=== PATIENT | female | born 1945 | race Caucasian/White ===

== ENCOUNTER 2017-05-11 15:32 | Inpatient (IN) | payer MEDICARE ==
[2017-05-11 16:43] LABS: #Basophils 0.1 thou/uL (0.0-0.2); #Eosinphils 0.2 thou/uL (0.0-0.7); #Monocytes 0.4 thou/uL (0.11-0.59); #Neutrophils 10.3 thou/uL (1.40-6.50); %Basophils 0.6 % (0.0-1.0); %Eosinophils 1.9 % (0.0-10.0); %Monocytes 3.6 % (0.0-10.0); Hematocrit 34.2 % (36.0-47.0); Mean Platelet Volume 8.4 fL (7.4-10.4); Red Blood Cell (RBC) Count 2.89 mill/uL (4.20-5.40); White Blood Cell (WBC) Count 11.9 thou/uL (4.8-10.8)
[2017-05-11 17:01] LABS: ALT (SGPT) 14 U/L (8-55); AST (SGOT) 24 U/L (5-34); Alkaline Phosphatase 146 U/L (40-150); Anion Gap 15 mmol/L (10-20); BUN (Urea Nitrogen) 24 mg/dL (9.8-20.1); Bilirubin, Total 0.6 mg/dL (0.2-1.2); Calc. Creatinine Clearance 0 mL/min (70-130); Calcium 8.6 mg/dL (7.8-10.44); Carbon Dioxide 26 mmol/L (23-31); Chloride 93 mmol/L (98-107); Estimated GFR-MDRD 8; Globulin 2.9 g/dL (2.4-3.5); Protein, Total 5.9 g/dL (6.0-8.3)
[2017-05-11 17:07] LABS: Anisocytosis SLIGHT = 6-15 cells (100X) (0-5/hpf); Macrocytosis MODERATE=16-30 cells (100X) (0-5/hpf); Ovalocytes SLIGHT = 2-5 cells (100X) (0-1/hpf); Polychromasia SLIGHT = 2-3 cells (100X) (0-2/hpf); Schistocytes SLIGHT = 2-5 cells (100X) (0-1/hpf); Tear Drops SLIGHT = 2-5 cells (100X) (0-1/hpf)
[2017-05-11] MEDS ORDERED: Pantoprazole 40 MG VIAL ONE (17:19)
--- NOTE | 2017-05-11 18:52 | CT ---
CT ABDOMEN AND PELVIS WITH IV CONTRAST: Indication: Abdominal pain with bloody diarrhea. Comparison: None. FINDINGS: There is a left lower quadrant peritoneal dialysis catheter. The catheter is coiled in the right aspe ct of the pelvis. There are multiple colonic diverticula involving the colon. There is no overt evidence of an acute di verticulitis. There is some mild pericolonic stranding seen adjacent to the mid aspect of the ascendi ng colon with a focal area of narrowing best seen on image 37 of series 2 and image 71 of series 6 wh ich may represent a focal area of peristalsis. With the presence of peritoneal dialysis, it is diffic ult to determine if this reticulation surrounding the colon is related to peritoneal dialysate versus pericolonic inflammatory stranding. There is severe atrophy of the right kidney. Unopacified left kidney demonstrates renal vascular calc ifications but no hydronephrosis. There are severe vascular calcifications involving the abdominal-pe lvic vasculature. There are layered stones within the gallbladder. Lung bases are clear. Unopacified liver, pancreas, adrenal glands, and spleen appear within normal limits. There are vascular calcifications involving the uterus. The bladder is decompressed. The rectum and p erirectal soft tissues appear within normal limits. There is dextroscoliosis of the lumbar spine. The re are scattered degenerative osteoarthritic change. There is diffuse osteopenia. IMPRESSION: 1. No definite explanation of the patient's abdominal pain and rectal bleeding. 2. There is a focal area of concentric narrowing involving the mid aspect of the ascending colon whic h is felt to be most likely related to a focal area of peristalsis. There is no overt evidence of col itis. There is extensive diverticulosis of the colon. 3. Cholelithiasis. 4. Severely atrophic right kidney. 5. Peritoneal dialysis catheter. 6. Severe arthrosclerotic disease of the abdominal vasculature. POS: [facility]
[2017-05-11] MEDS ORDERED: Sodium Chloride 0.9% 1,000 ML IV SCH ×2 (19:34→19:45)
[2017-05-11] MEDS ORDERED: Acetaminophen 325 MG TAB PO PRN (19:44)
[2017-05-11] MEDS: Ondansetron ODT 4 MG TAB PO PRN (20:17)
[2017-05-11] MEDS: Sodium Chloride 0.9% 1,000 ML IV SCH (21:27)
[2017-05-11] MEDS ORDERED: Potassium Chloride 40 MEQ in Sodium Chloride 0.9% 500 ML IVPB SCH (21:30)
[2017-05-11] MEDS: Mometasone/Formoterol 120 PUFF INHALER INH SCH (23:27)
[2017-05-12] MEDS: Levothyroxine Sodium 88 MCG TAB PO SCH (05:55)
--- NOTE | 2017-05-12 05:55 | PDOC.FM ---
- Subjective Subjective: Patient feeling much better this AM. She had one episode of diarrhea yesterday, which was non-bloody. She states that the diarrhea started before the bloody bowel BM. - Objective MAR Reviewed: Yes Vital Signs & Weight: Vital Signs (12 hours) Temp Pulse Resp BP Pulse Ox 05/12/17 00:00 98.7 F 81 20 113/56 L 98 05/11/17 23:29 97 05/11/17 23:27 97 05/11/17 20:00 99.0 F 84 20 98 05/11/17 19:35 99.0 F 84 20 117/57 L 98 Weight Weight 49.101 kg I&O: 05/10/17 05/11/17 05/12/17 06:59 06:59 06:59 Output Total 50 Balance -50 Result Diagrams: 05/12/17 05:52 05/12/17 05:52 EKG Reviewed by me: No Radiology Reviewed by me: Yes <Fouzia Tejeda - Last Filed: 05/12/17 08:20> - Objective Vital Signs & Weight: Vital Signs (12 hours) Temp Pulse Resp BP Pulse Ox 05/12/17 10:57 98.6 F 81 18 122/70 05/12/17 07:51 97.8 F 80 16 110/52 L 05/12/17 05:50 98.0 F 82 20 114/51 L 99 05/12/17 00:00 98.7 F 81 20 113/56 L 98 05/11/17 23:29 97 05/11/17 23:27 97 Weight Weight 108 lb 4 oz I&O: 05/11/17 05/12/17 05/13/17 06:59 06:59 06:59 Output Total 50 Balance -50 Result Diagrams: 05/12/17 05:52 05/12/17 05:52 <Baljit Velasquez - Last Filed: 05/12/17 11:15> Phys Exam - Physical Examination Constitutional: NAD HEENT: PERRLA, moist MMs, sclera anicteric Neck: supple Respiratory: no wheezing, no rales, no rhonchi, clear to auscultation bilateral 3/6 systolic murmur Gastrointestinal: soft, non-tender, no distention Hyperactive bowel sounds Musculoskeletal: no edema Neurological: non-focal Psychiatric: A&O x 3 Skin: normal turgor, cap refill <2 seconds <Omkar Tejedaistyn - Last Filed: 05/12/17 08:20> Dx/Plan (1) Intestinal infection due to bacteria causing bloody diarrhea Code(s): A04.9 - BACTERIAL INTESTINAL INFECTION, UNSPECIFIED Status: Acute (2) Hyponatremia Code(s): E87.1 - HYPO-OSMOLALITY AND HYPONATREMIA Status: Acute (3) ESRD on peritoneal dialysis Code(s): N18.6 - END STAGE RENAL DISEASE; Z99.2 - DEPENDENCE ON RENAL DIALYSIS Status: Chronic (4) CHF, chronic Code(s): I50.9 - HEART FAILURE, UNSPECIFIED Status: Chronic QualifierTitle: Congestive heart failure type: systolic Qualified Code(s) : I50.22 - Chronic systolic (congestive) heart failure (5) Aortic stenosis Code(s): I35.0 - NONRHEUMATIC AORTIC (VALVE) STENOSIS Status: Chronic QualifierTitle: Cardiac valve disease etiology: nonrheumatic Qualified Code(s): I35.0 - Nonrheumatic aortic (valve) stenosis (6) CAD (coronary artery disease) Code(s): I25.10 - ATHSCL HEART DISEASE OF [place] CORONARY ARTERY W/O ANG PCTRS Status: Chronic (7) Afib Code(s): I48.91 - UNSPECIFIED ATRIAL FIBRILLATION Status: Chronic (8) COPD (chronic obstructive pulmonary disease) Status: Chronic (9) Hypothyroid Code(s): E03.9 - HYPOTHYROIDISM, UNSPECIFIED Status: Chronic QualifierTitle: Hypothyroidism type: acquired Qualified Code(s): E03.9 - Hypothyroidism, unspecified (10) Macrocytic anemia Code(s): D53.9 - NUTRITIONAL ANEMIA, UNSPECIFIED Status: Chronic - Plan Plan: Plan: 1. Intestinal infection causing bloody diarrhea - Confirm via stool samples - Diverticulosis and possible peristalsis vs colitis noted on CT abdomen/pelvis - Cannot rule out diverticulosis as cause of bloody stools, although unlikely since diarrhea started prior to bleeding - Stool samples pending - Continue to monitor patient for signs of systemic infection - Monitor output - Hold lovenox and xarelto 2/2 GI bleeding 2. Mild hyponatremia - Monitor with AM BMP - May be 2/2 GI losses 3. ESRD on PD - Dr. Borjas consulted - Appreciate recs 4. Atrial fibrillation - Hold xarelto 2/2 GI bleeding - Consult Dr. Casey since holding xarelto 5. HTN - Continue dialysis - Restart any home medications 6. Macrocytic anemia - Chronic - Consider ordering folic acid and B12 7. Hypothyroid - Continue home meds 8. COPD - Continue home meds 9. Hypomagnesemia - Replace Mg Dispo: Anticipated disposition this evening or tomorrow pending GI recommendations <Fouzia Tejeda - Last Filed: 05/12/17 08:20> Attending Addendum - Attending Addendum I personally evaluated the patient and discussed the management with Dr. Tejeda I agree with the History, Examination, Assessment and Plan documented above with any addition or exceptions noted below. Patient has off and on cramping and diarrhea since . No recent antibiotics, but she did have C. Diff two years ago. She comes in with 2 days of camping and loose stools times 5 that turned bloody yesterday. C. Diff. is now positive. GI is going to see her. We can start metronidazole. She was on Eliquis for afib. I think bleeding risk exceeds stroke risk and would recommend stopping that for now. If she stops bleeding and GI is ok with plan may send her home to finish course of treatment. <Baljit Velasquez - Last Filed: 05/12/17 11:15>
--- NOTE | 2017-05-12 05:56 | HP-2 ---
DATE OF ADMISSION: 05/11/2017 PRIMARY CARE PHYSICIAN: Azar Sanders MD ATTENDING PHYSICIAN: Dr. Tree Grimes. RESIDENT: Bryce Wright M.D. CODE STATUS: FULL, patient has advanced directive detailing desires. CHIEF COMPLAINT: Bloody stool. HISTORY OF PRESENT ILLNESS: A 71-year-old female with past medical history of end-stage renal disease and congestive heart failure with EF of 45% with severe aortic stenosis and valvular lesions. She has had a 2-day history of diarrhea with tavon blood and dark fecal matter in the last day. She has had abdominal pain with these bowel movements. After the abdominal movement, the pain is completely relieved and slowly builds up again for next bowel movement. She has had a couple of episodes of nausea and vomiting. Vomiting has always been normal. Gastric contents, no blood, no dark matter or no coffee ground emesis. The pain is not relieved by anything, but bowel movements, but sometimes exacerbated by movement or walking around. The patient recently has had a workup for her acute aortic stenosis and she is pending valvular procedure. Patient has high risk for this valvular procedure so she is being evaluated by Dr. Casey for what would be best for her. In the ER, she was given a dose of Protonix which helped her pain. PAST MEDICAL HISTORY: 1. End-stage renal disease on nightly peritoneal dialysis with Dr. Keita. 2. CHF, EF 45%, most recently done in 08/23. 3. Paroxysmal atrial fibrillation. 4. Chronic obstructive pulmonary disease. 5. Hypothyroidism. 6. Psoriasis. 7. Hypertension. 8. Hyperlipidemia. 9. Aortic stenosis with planned TAVR. PAST SURGICAL HISTORY: 1. Thoracostomy. 2. AV tavo ablation. 3. Dual chamber pacemaker. 4. Pericardial window. 5. AVN ablation. MEDICATIONS: 1. Levothyroxine 88 mcg 1 time daily. 2. Xarelto 15 mg daily. 3. Symbicort 160 mcg inhaled 2 times daily. 4. Methotrexate 2.5 mg 1 time per week. 5. Calcitriol 0.5 mcg 1 time daily. 6. Potassium 20 mEq extended release 1 time daily. 7. Nephro-Gem tablets 1 time daily. 8. Epogen injections 7500 two times a week. 9. Renvela daily with meals. 10. Folic acid 1 mg 1 time a day. 11. Zofran p.r.n. for nausea. 12. Vitamins over the counter probiotic. FAMILY HISTORY: Noncontributory. SOCIAL HISTORY: Patient was a previous 1 pack per day smoker, but is not smoking currently. Alcohol none. Recreational drugs: None. REVIEW OF SYSTEMS: General: Negative for fever, chills, and weight loss. Positive for changes in appetite. Negative for respiratory symptoms. Negative for ear, nose and throat symptoms. Cardiovascular: Negative for chest pain and palpitations. Gastrointestinal: Positive for nausea, vomiting, diarrhea. Negative for constipation. Positive for abdominal pain. Positive for GI bleeding. Genitourinary: Negative for dysuria or polyuria. Skin: Negative rashes or lesions. Musculoskeletal: Negative for pain or tenderness. Neurologic: Negative for weakness or numbness. Psychiatric: Negative for anxiety, depression. PHYSICAL EXAMINATION: VITAL SIGNS: Blood pressure 117/75, pulse 81, respiratory rate 18, T-max 98.9, pulse ox 100% on room air, current weight 50.8 kilograms. GENERAL: Alert and oriented x3, no acute distress. Well-developed, appropriately interactive. EYES: PERRLA. EOMI. Conjunctivae within normal limits. ENT: Showed normal nasal mucosa. Normal oropharynx. NECK: Supple, without lymphadenopathy or thyromegaly. CARDIOVASCULAR: Regular rate and rhythm and systolic murmur was heard best over the left second intercostal space. Radial pulses 2+, pedal pulses 2+. RESPIRATORY: Normal effort without retractions. SKIN: Warm and dry without cyanosis or lesions. ABDOMEN: Soft, nontender to palpation. Bowel sounds x4 without mass or distention. In the ER, rectal exam was done that showed grossly bloody loose stool. EXTREMITIES: No clubbing, cyanosis or edema. MUSCULOSKELETAL: Structure and tone within normal limits. Muscle strength 5/ 5. Full range of motion. NEUROLOGICAL: No focal deficits. Sensation within normal limits. PSYCHIATRIC: The patient is appropriate. LABORATORY DATA: White blood cell count 11.9, hemoglobin 11.0, hematocrit 34.2 , platelets 151. Sodium 131, potassium 3.4, chloride 93, bicarbonate 26, BUN 24 , creatinine 5.19, glucose 96. Bilirubin 0.6, AST 24, ALT 14, alkaline phosphatase 146. IMAGING: Noncontrast CT stone protocol was done that showed chronic conditions including atrophic right kidney, atherosclerosis of abdominal vasculature. There is an area of concentric narrowing of the ascending colon, thought to be most likely a focal area peristalsis rather than an overt colitis. There is diverticulosis of the colon. ASSESSMENT AND PLAN: 1. Bloody diarrhea, suspect infectious cause. We will workup with stool lactoferrin, stool studies and Clostridium difficile cultures. We will give patient gentle fluids during this time. We will hold on antibiotics until stool cultures prove negative for EHEC. Alternatively bloody diarrhea could be from diverticulosis. The ER has consulted GI for consultation. 2. Peritoneal dialysis. Patient received peritoneal dialysis every night for chronic condition. We will consult Dr. Keita and continue this in hospital. 3. Atrial fibrillation. Patient is paced here in the hospital. EKG shows ventricular paced rhythm. The patient does chronically take Eliquis with her rectal bleeding. I think risks are higher than benefit at this moment. We will consult Dr. Casey in the morning for further recommendations on management of her chronic cardiac conditions. 4. Chronic obstructive pulmonary disease. Continue patient's inhalers. 5. Aortic stenosis. Despite noncardiac etiology at this point, we will involve Dr. Casey because of patient's history and current workup. 6. Psoriasis. The patient gives methotrexate weekly making her immunosuppressed. We will hold methotrexate if next dose is here in the hospital. 7. Macrocytic anemia, possibly secondary to the methotrexate. Patient's hemoglobin is currently stable. We will monitor. History and physical exam as well as management discussed with Dr. Tree Grimes. [facility]ITAL[facility]
[2017-05-12] MEDS: Ondansetron ODT 4 MG TAB PO PRN ×2 (06:05→15:06)
[2017-05-12 06:14] LABS: Anion Gap 13 mmol/L (10-20); BUN (Urea Nitrogen) 24 mg/dL (9.8-20.1); Calc. Creatinine Clearance 8 mL/min (70-130); Calcium 7.9 mg/dL (7.8-10.44); Carbon Dioxide 27 mmol/L (23-31); Chloride 101 mmol/L (98-107); Estimated GFR-MDRD 9; Magnesium 1.5 mg/dL (1.6-2.6)
--- NOTE | 2017-05-12 06:24 | CON ---
DATE OF CONSULTATION: 05/11/2017 CONSULTING PHYSICIAN: Dr. Wright REASON FOR CONSULTATION: End-stage renal disease evaluation and care. REASON FOR ADMISSION: Hematochezia. HISTORY OF PRESENT ILLNESS: A 71-year-old female with a history of end-stage renal disease on perito betito dialysis at home, hypertension, psoriasis, atrial fibrillation, COPD, aortic stenosis, pericardi al effusion, came to the hospital for hematochezia. The patient is having diarrhea for the last few days and started having blood in the stools noticed on wiping and came to the hospital. She is very weak. She has not been eating very well for the last few days because of diarrhea and abdominal pain . She also complains of abdominal pain. No fevers, chills, no nausea, vomiting, no chest pain or pa lpitation reported. She has been doing peritoneal dialysis at home. PAST MEDICAL HISTORY: Positive for end-stage renal disease, psoriasis, hypothyroidism, hypertension, COPD, aortic stenosis, pericardial effusion, atrial fibrillation. PAST SURGICAL HISTORY: Bilateral cataract surgery, PD catheter placement, pericardial window, tubal ligation, pleurocentesis, AFib ablation. HOME MEDICATIONS: Levothyroxine, Xarelto, Symbicort, methotrexate, calcitriol, potassium chloride, E pogen, Renvela, folic acid, torsemide. ALLERGIES: ADHESIVE and CIPRO. SOCIAL HISTORY: No smoking, alcohol, or illicit drug abuse. FAMILY HISTORY: No history of kidney disease. REVIEW OF SYSTEMS: The following complete review of systems was negative, unless otherwise mentioned in the HPI or below: Constitutional: Weight loss or gain, ability to conduct usual activities. Sk in: Rash, itching. Eyes: Double vision, pain. ENT/Mouth: Nose bleeding, neck stiffness, pain, te nderness. Cardiovascular: Palpitations, dyspnea on exertion, orthopnea. Respiratory: Shortness of breath, wheezing, cough, hemoptysis, fever or night sweats. Gastrointestinal: Poor appetite, abdom inal pain, heartburn, nausea, vomiting, constipation, or diarrhea. Genitourinary: Urgency, frequenc y, dysuria, nocturia. Musculoskeletal: Pain, swelling. Neurologic/Psychiatric: Anxiety, depressio n. Allergy/Immunologic: Skin rash, bleeding tendency. PHYSICAL EXAMINATION: GENERAL: This is a well-built female, in no apparent distress. VITAL SIGNS: Temperature 97.9, pulse 84, respiratory rate 18, blood pressure 139/74. HEENT: Atraumatic, normocephalic. Oral mucosa is moist. NECK: Supple. CARDIOVASCULAR: S1, S2 heard. Rate and rhythm regular. RESPIRATORY: Clear. GASTROINTESTINAL: Abdomen is soft. MUSCULOSKELETAL: No tenderness. No edema. DERMATOLOGIC: No skin rash. NEUROLOGIC: Alert, awake. PSYCHIATRIC: Mood and affect normal. LABORATORY DATA: Hemoglobin is 11.0, potassium 3.4, BUN 24, creatinine is 5.9, albumin is 3.7. ASSESSMENT AND PLAN: 1. End-stage renal disease on peritoneal dialysis. We will give a short run of dialysis today. She is on intravenous fluids currently, cautious intravenous fluids as tolerated and monitor respiratory status closely. 2. Hyponatremia, limit fluid intake. 3. Hypokalemia. We will give 40 of potassium. She is on potassium supplements . 4. Hypoalbuminemia with moderate protein-energy malnutrition. 5. Anemia, chronic with gastrointestinal bleed. She is on Epogen at home. She had a dose of Epoge n at home today. 6. Edema, controlled. 7. Hypertension, stable. Blood pressure is slightly on the lower side. 8. Gastrointestinal bleed. Hemoglobin is stable. Monitor hemoglobin closely, possible gastrointest inal evaluation. CT scan was unremarkable at this point. Thank you for the consult. Plan is to continue peritoneal dialysis as tolerated. The patient is agr eeable, plan discussed with her, will follow.
[2017-05-12 06:34] LABS: #Basophils 0.1 thou/uL (0.0-0.2); #Eosinphils 0.4 thou/uL (0.0-0.7); #Lymphocytes 1.5 thou/uL (1.20-3.40); #Monocytes 0.4 thou/uL (0.11-0.59); #Neutrophils 7.5 thou/uL (1.40-6.50); %Basophils 0.6 % (0.0-1.0); %Eosinophils 3.8 % (0.0-10.0); %Lymphocytes 14.8 % (21.0-51.0); %Monocytes 4.2 % (0.0-10.0); Hematocrit 29.9 % (36.0-47.0); Macrocytosis MODERATE=16-30 cells (100X) (0-5/hpf); Mean Platelet Volume 8.1 fL (7.4-10.4); Ovalocytes SLIGHT = 2-5 cells (100X) (0-1/hpf); Red Blood Cell (RBC) Count 2.53 mill/uL (4.20-5.40); Tear Drops SLIGHT = 2-5 cells (100X) (0-1/hpf); White Blood Cell (WBC) Count 9.8 thou/uL (4.8-10.8)
[2017-05-12] MEDS: Mometasone/Formoterol 120 PUFF INHALER INH SCH ×2 (06:36→19:13)
[2017-05-12] MEDS: Calcitriol 0.25 MCG CAP PO SCH (08:37)
[2017-05-12] MEDS: Folic Acid 1 MG TAB PO SCH (08:38)
[2017-05-12] MEDS: Sevelamer Carbonate 800 MG TAB PO SCH ×3 (08:38→17:31)
[2017-05-12] MEDS: Potassium Chloride 20 MEQ TAB PO SCH (08:44)
[2017-05-12] MEDS ORDERED: metroNIDAZOLE 500 MG TAB PO SCH ×2 (11:15→15:00)
--- NOTE | 2017-05-12 11:30 | PRG ---
DATE OF SERVICE: 05/12/2017 SUBJECTIVE: This is a 71-year-old female being seen for end-stage renal disease. Patient denies any nausea, vomiting or chest pain. PHYSICAL EXAMINATION: GENERAL: Patient is awake, alert. VITAL SIGNS: Afebrile, pulse 81, breathing 16, blood pressure 122/70. OBJECTIVE: See above. Awake, alert, in no acute distress. GENERAL APPEARANCE AND MENTAL STATUS: Fair. HEAD/NECK: Normocephalic. Atraumatic. EYES: EOMI. No deformity. EARS: Clear. No ulcers. NOSE: Intact. No lesions. MOUTH: Clear. No discharge. THROAT: Clear. No exudate. LUNGS: Clear. No crackles. CARDIAC: S1, S2. No rub. ABDOMEN: Benign. BS+. GENITALIA/RECTUM: Stein absent. BACK/EXTREMITIES: Edema 0+ Ulcer- NEUROLOGICAL: Alert and motor intact. SKIN: Rash- Bruise- LYMPHATICS: Edema- Ulcer- LABORATORY: Hemoglobin 9.7, potassium 4.2. ASSESSMENT AND RECOMMENDATIONS: 1. Stage 6 chronic kidney disease. Continue peritoneal dialysis. 2. Hypertension, stable. 3. Anemia, stable. 4. Medications based on glomerular filtration rate are appropriate.
[2017-05-12] MEDS: Sodium Chloride 0.9% 1,000 ML IV SCH (11:52)
[2017-05-12 14:17] VITALS: BMI 23.3
[2017-05-12 17:13] LABS: Hematocrit 28.7 % (36.0-47.0)
[2017-05-12] MEDS: Vancomycin HCl 25 MG/ML Oral PO SCH ×2 (17:31→21:02)
--- NOTE | 2017-05-12 22:21 | CON ---
CARDIOLOGY CONSULTATION DATE OF CONSULTATION: 05/12/2017 PRIMARY BOILER WASHER: Tanvir Casey M.D. REASON FOR CONSULTATION: GI bleed, severe aortic stenosis, and chronic atrial fibrillation. HISTORY OF PRESENT ILLNESS: Ms. Hayes is a very pleasant 71-year-old white female well known to myself, who comes into the hospital for diarrhea and blood in her stool. She has been diagnosed with diverticulosis and possibly the source of bleeding is most likely related to Clostridium difficile colitis. She has been started on antibiotics for this and her Xarelto was discontinued. She is on chronic anticoagulation for atrial fibrillation. She has a history of severe aortic stenosis. She has been turned down once for TAVR and is undergoing evaluation by a second TAVR programmed to see if she would be a candidate for. She is scheduled to see them on the of this month. If she gets turned down at that point, she will be a candidate for an open procedure. She has a history of end stage renal disease and has chronic anemia from chronic disease. I am sure her heart function is mildly reduced with an EF of about 45% and has paroxysmal atrial fibrillation. She has no other issues. She has no other complaints at this time. She has not had loose bowel movements since yesterday evening, but she has an abnormal bowel movements since. PAST MEDICAL HISTORY: 1. End-stage renal disease on peritoneal dialysis with Dr. Keita. 2. 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 3. Paroxysmal atrial fibrillation. 4. Chronic obstructive pulmonary disease. 5. Hypothyroidism. 6. Psoriasis. 7. Hypertension. 8. Hyperlipidemia. 9. Severe aortic stenosis, heavily calcified valve to undergo TAVR evaluation. PAST SURGICAL HISTORY: 1. Thoracotomy for empyema. 2. AV tavo ablation with pacemaker placed. 3. Pericardial window for pericardial effusion. 4. Peritoneal dialysis catheter placement. OUTPATIENT MEDICATIONS: Include: 1. Levothyroxine 88 mcg a day. 2. Xarelto 15 mg a day. 3. Symbicort. 4. Methotrexate 2.5 mg weekly. 5. Calcitriol. 6. Potassium 20 mEq a day. 7. Nephro-Gem. 8. Epogen. 9. Renvela. 10. Folic acid. 11. Zofran. 12. Vitamins. FAMILY HISTORY: Noncontributory. SOCIAL HISTORY: No alcohol, tobacco or drugs. Former smoker. REVIEW OF SYSTEMS: A 12-point review of systems was done and is all negative unless stated in the history of present illness. PHYSICAL EXAMINATION: VITAL SIGNS: Temperature 98.6, pulse 81, respiration rate 18, satting 99% on 1 liter, blood pressure 122/70. GENERAL: Awake, alert and oriented x3, in no distress. She looks pale, 2+. HEENT: Normocephalic, atraumatic. NECK: Supple. LUNGS: Have reduced breath sounds bilaterally. CARDIOVASCULAR: S1, S2. There is a late peaking systolic ejection murmur at right upper sternal border, radiated to the rest of the precordium, no S3 or S4 , no rubs. ABDOMEN: Soft, positive bowel sounds. EXTREMITIES: No edema. SKIN: Warm and dry. LABORATORY WORK: Reviewed. White count of 11 on arrival, down to 9.8, hemoglobin was 11 on arrival, down to 9.3, platelet count of 151. Chemistry with a sodium of 131, potassium 3.4 up to 4.2, creatinine high as expected, albumin of 3.0. Stool for C. difficile was positive. ASSESSMENT: 1. Acute blood loss anemia. 2. Lower gastrointestinal bleed. 3. Severe aortic stenosis. 4. Coronary artery disease, stable. 5. Clostridium difficile colitis. PLAN: 1. Part of the differential diagnosis of a GI bleed in a patient with severe aortic stenosis should include AVMs in her small bowel. We would favor doing both an upper and lower endoscopy if it hs not been done recently but also pill endoscopy if indicated. This will be up to the gastrologist discretion. 2. We would definitely hold Xarelto and any antiplatelet for now until the bleeding has stopped and she is ruled out from the GI point of review. 3. For her severe aortic stenosis, she is undergoing evaluation for TAVR down in [place]. She will probably have to reschedule the appointment, she has got on the . Thank you for letting us to participate in the care of your patient. We will follow. JALEN
[2017-05-13] MEDS: Vancomycin HCl 25 MG/ML Oral PO SCH ×4 (01:18→14:25)
[2017-05-13 06:09] LABS: #Basophils 0.1 thou/uL (0.0-0.2); #Eosinphils 0.2 thou/uL (0.0-0.7); #Monocytes 0.6 thou/uL (0.11-0.59); #Neutrophils 11.6 thou/uL (1.40-6.50); %Basophils 0.4 % (0.0-1.0); %Eosinophils 1.6 % (0.0-10.0); %Lymphocytes 7.1 % (21.0-51.0); %Monocytes 4.7 % (0.0-10.0); Hematocrit 28.6 % (36.0-47.0); Mean Platelet Volume 7.8 fL (7.4-10.4); White Blood Cell (WBC) Count 13.4 thou/uL (4.8-10.8)
[2017-05-13] MEDS: Levothyroxine Sodium 88 MCG TAB PO SCH (06:13)
--- NOTE | 2017-05-13 06:18 | PDOC.FM ---
Addendum entered and electronically signed by Parker Dominguez DO 05/13/17 08: 22: Upper Level Note: S: Patient doing well. No further diarrhea or GI bleeding since admission. Patient is agreeable to discharge. Objective: A&Ox3. NAD. Breathing unlabored. No wheezing rales, or rhonchi. Heart rate and rhythm regular. Abdomen soft, nontender, normal bowel sounds A/P: 1) Acute lower GI bleed - 2/2 C. diff. Patient now on oral vancomycin. Dr. Yun with GI plans outpatient follow up for colonoscopy to evaluate possibility of AVMs 2) C. diff colitis - Continue oral vancomycin I agree wtih Dr. Tejeda's assessment and plan as listed below. Plan for discharge today Original Note: - Subjective Subjective: Patient feels well this morning. She was able to tolerate PO yesterday, although she doesn't have much of an appetite. Her daughter is bringing her some chicken noodle soup sometime this morning. She denies any chest pain or increase in shortness of breath. Patient denies nausea or vomiting. She has not had any diarrhea since night of admission, and she denies any more bloody BM's since night of admission. - Objective MAR Reviewed: Yes Vital Signs & Weight: Vital Signs (12 hours) Temp Pulse Resp BP Pulse Ox 05/13/17 05:31 96 05/12/17 20:00 98.7 F 82 16 132/60 99 05/12/17 19:50 98.7 F 82 16 05/12/17 19:13 16 96 Weight Admit Weight 48.988 kg Weight 48.988 kg I&O: 05/11/17 05/12/17 05/13/17 06:59 06:59 06:59 Intake Total 1050 Output Total 50 Balance -50 1050 Result Diagrams: 05/13/17 05:54 05/13/17 05:54 EKG Reviewed by me: No Radiology Reviewed by me: No <Fouzia Tejeda - Last Filed: 05/13/17 07:57> - Objective Vital Signs & Weight: Vital Signs (12 hours) Temp Pulse Resp BP Pulse Ox 05/13/17 08:00 99.0 F 70 16 99 05/13/17 07:59 78 16 96 05/13/17 07:25 99 F 70 20 131/59 L 99 12/05/17 05:31 96 Weight Admit Weight 108 lb Weight 108 lb I&O: 05/12/17 05/13/17 05/14/17 06:59 06:59 06:59 Intake Total 1050 Output Total 50 Balance -50 1050 Result Diagrams: 05/13/17 05:54 05/13/17 05:54 <Baljit Velasquez - Last Filed: 05/13/17 11:01> Phys Exam - Physical Examination Constitutional: NAD HEENT: moist MMs, sclera anicteric Neck: supple Respiratory: no wheezing, no rales, no rhonchi Cardiovascular: RRR systolic murmur Gastrointestinal: soft, non-tender, no distention, positive bowel sounds Musculoskeletal: no edema, pulses present Neurological: non-focal, moves all 4 limbs Psychiatric: A&O x 3 Skin: cap refill <2 seconds Deviation from normal: Skin tear on right elbow <Fouzia Tejeda - Last Filed: 05/13/17 07:57> Dx/Plan (1) Intestinal infection due to bacteria causing bloody diarrhea Code(s): A04.9 - BACTERIAL INTESTINAL INFECTION, UNSPECIFIED Status: Acute (2) Hyponatremia Code(s): E87.1 - HYPO-OSMOLALITY AND HYPONATREMIA Status: Acute (3) ESRD on peritoneal dialysis Code(s): N18.6 - END STAGE RENAL DISEASE; Z99.2 - DEPENDENCE ON RENAL DIALYSIS Status: Chronic (4) CHF, chronic Code(s): I50.9 - HEART FAILURE, UNSPECIFIED Status: Chronic QualifierTitle: Congestive heart failure type: systolic Qualified Code(s) : I50.22 - Chronic systolic (congestive) heart failure (5) Aortic stenosis Code(s): I35.0 - NONRHEUMATIC AORTIC (VALVE) STENOSIS Status: Chronic QualifierTitle: Cardiac valve disease etiology: nonrheumatic Qualified Code(s): I35.0 - Nonrheumatic aortic (valve) stenosis (6) CAD (coronary artery disease) Code(s): I25.10 - ATHSCL HEART DISEASE OF [place] CORONARY ARTERY W/O ANG PCTRS Status: Chronic (7) Afib Code(s): I48.91 - UNSPECIFIED ATRIAL FIBRILLATION Status: Chronic (8) COPD (chronic obstructive pulmonary disease) Status: Chronic (9) Hypothyroid Code(s): E03.9 - HYPOTHYROIDISM, UNSPECIFIED Status: Chronic QualifierTitle: Hypothyroidism type: acquired Qualified Code(s): E03.9 - Hypothyroidism, unspecified (10) Macrocytic anemia Code(s): D53.9 - NUTRITIONAL ANEMIA, UNSPECIFIED Status: Chronic - Plan Plan: Plan: 1. Intestinal infection causing bloody diarrhea - Stool positive for C. difficile - History of C. Difficile treated 2 years ago - Spoke with GI and they recommend treatment with oral vancomycin. In addition, they would like to do colonoscopy as outpatient in 2-3 weeks. - Cannot rule out AVM's as cause of bleeding as patient has severe aortic stenosis - Continue to monitor patient for signs of systemic infection - Monitor output - Hold lovenox and xarelto 2/2 GI bleeding - Patient started on oral vancomycin 2. Acute blood loss anemia - 2/2 to GI bleed from pseudomembranous colitis vs. AVM's - Stable 2. Mild hyponatremia - Improved this AM - May be 2/2 GI losses 3. ESRD on PD - Dr. Borjas consulted - Appreciate recs 4. Atrial fibrillation - Hold xarelto 2/2 GI bleeding - Appreciate recs from Cards 5. HTN - Continue dialysis - Restart any home medications 6. Macrocytic anemia - Chronic 7. Hypothyroid - Continue home meds 8. COPD - Continue home meds 9. Hypomagnesemia - Replace Mg Dispo: Anticipated discharge today. <Fouzia Tejeda - Last Filed: 05/13/17 07:57> Attending Addendum - Attending Addendum I personally evaluated the patient and discussed the management with Dr. Dominguez and Nikhil I agree with the History, Examination, Assessment and Plan documented above. <Baljit Velasquez - Last Filed: 05/13/17 11:01>
[2017-05-13 06:19] LABS: Anion Gap 13 mmol/L (10-20); BUN (Urea Nitrogen) 25 mg/dL (9.8-20.1); Calc. Creatinine Clearance 8 mL/min (70-130); Carbon Dioxide 24 mmol/L (23-31); Chloride 102 mmol/L (98-107); Estimated GFR-MDRD 9
[2017-05-13] MEDS: Mometasone/Formoterol 120 PUFF INHALER INH SCH (07:59)
[2017-05-13 08:33] VITALS: BP 131/59
[2017-05-13] MEDS: Sevelamer Carbonate 800 MG TAB PO SCH ×2 (08:52→12:11)
[2017-05-13] MEDS: Folic Acid 1 MG TAB PO SCH (08:52)
[2017-05-13] MEDS: Calcitriol 0.25 MCG CAP PO SCH (08:53)
[2017-05-13] MEDS: Potassium Chloride 20 MEQ TAB PO SCH (08:54)
[2017-05-13 09:20] VITALS: TEMP 99
--- NOTE | 2017-05-13 14:31 | DIS-2 ---
DATE OF ADMISSION: 05/11/2017 DATE OF DISCHARGE: 05/13/2017 RESIDENT: Dr. Fouzia Tejeda ADMITTING ATTENDING: Dr. Tree Grimes DISCHARGE ATTENDING: Dr. Baljit Velasquez CONSULTATIONS: 1. Cardiology, Dr. Tanvir Casey. 2. Gastroenterology, Dr. Mack Yun. PROCEDURES: Abdomen and pelvis CT, no definite explanation of the patient's abdominal pain and rectal bleeding. There was a focal area of concentric narrowing involving the mid aspect of the ascending colon which was felt to be likely related to focal area of peristalsis. Extensive diverticulosis of the colon was noted. The patient was also found to have cholelithiasis, a severely atrophic right kidney, a peritoneal dialysis catheter, and severe atherosclerotic disease of the abdominal vasculature. PRIMARY DIAGNOSES: 1. Clostridium difficile pseudomembranous colitis. 2. Acute blood loss anemia secondary to Clostridium difficile colitis. SECONDARY DIAGNOSES: 1. Mild hyponatremia, resolved. 2. End-stage renal disease on peritoneal dialysis. 3. Atrial fibrillation on anticoagulation. 4. Hypertension. 5. Macrocytic anemia, chronic. 6. Hypothyroidism. 7. Chronic obstructive pulmonary disease. 8. Hypomagnesemia, resolved. DISCHARGE MEDICATIONS: 1. Liquid vancomycin 125 mg oral q.6h. for a total of 14 days. 2. Lactobacillus acidophilus 1 capsule oral daily. 3. Calcitriol 0.5 mcg oral daily. 4. Levothyroxine 88 mcg oral every morning. 5. Procrit 7500 intramuscular as directed. 6. Methotrexate 1 tablet oral every week. 7. Budesonide. 8. Symbicort 160/4.5 two inhalations oral twice daily. 9. Folic acid 1 mg oral daily. 10. Potassium chloride 20 mEq oral every morning with breakfast. 11. Sevelamer carbonate 800 mg oral 3 times daily with meals. 12. Ferrous sulfate 325 mg oral daily. DISCONTINUED MEDICATIONS: Rivaroxaban 50 mg oral daily. This was discontinued secondary to gastrointestinal bleeding. HISTORY OF PRESENT ILLNESS AND HOSPITAL COURSE: This is a 71-year-old female with past medical history of end-stage renal disease on peritoneal dialysis, congestive heart failure with ejection fraction of 45% with severe aortic stenosis and valvular lesions, and atrial fibrillation on anticoagulation therapy. She had a 2-day history of diarrhea with tavon blood and dark fecal matter on the day prior to admission. The patient did report abdominal pain with bowel movements. She states that after the bowel movement, the pain completely resolved and then would slowly build up again until the next bowel movement. The patient did report some nausea and dry heaving. This all started on . She has just not felt well since then. Emesis was nonbloody, nonbilious. The patient reports that she has not taken any antibiotics recently and there are no sick contacts at home. The patient was recently worked up for her aortic stenosis and she is pending valvular procedure in [place]. The patient is high risk secondary to her numerous medical conditions and she has been evaluated by Dr. Casey. The patient remained stable throughout the course of her hospital stay. She had 1 episode of bloody diarrhea on the night of admission; however, that resolved and she has not had any diarrhea or bloody bowel movement since that time. The patient reports that she has been feeling well since she stopped having the diarrhea. She was able to advance her diet to a regular diet, although she is still being cautious of what she eats secondary to some nausea. She denies any fatigue or dizziness upon standing. Her hemoglobin did drop from 11.0 to 9.7 from the day of admission to the next day; however, upon recheck her hemoglobin and hematocrit remained stable. Cardiology was consulted. Dr. Casey recommended the patient be worked up for potential AVMs associated with her severe aortic stenosis. Dr. Yun from Gastroenterology was also consulted. Stool cultures were positive for C. difficile and thus the bleeding was presumed to be from Clostridium difficile colitis. Dr. Yun recommended treatment with oral vancomycin as it is the patient's second time having C. difficile colitis. Dr. Yun would like to follow up with patient within 2-3 weeks of discharge from hospital for a possible colonoscopy to evaluate any further causes of bleeding. It was recommended that the patient stop her anticoagulant until the bleeding has resolved. Since patient will be going for a colonoscopy within the next 2-3 weeks, it was decided that anticoagulant be stopped until that time unless the patient's primary care physician requests otherwise. The patient did receive her peritoneal dialysis while being hospitalized, although it was not for the length of time which she normally has her peritoneal dialysis. She did not get fluid overloaded during her hospital stay. She denied any shortness of breath or extremity swelling. She remained in a sinus rhythm. All home medications were continued aside from the anticoagulant. The patient was instructed to call Dr. Yun from GI prior to discharge from hospital to schedule an appointment. Dr. Yun did not see patient while she was in the hospital, although he did give his recommendations regarding management and would like to personally follow up with the patient on an outpatient basis. This was discussed in length with the patient. Additionally, the cost of oral vancomycin was discussed with the patient. It is possible that the oral vancomycin may be expensive. However, the patient was understanding of this and was willing to pay for the oral vancomycin since it was recommended over the Flagyl per GI. It was discussed that if for some reason she was not able to afford to the oral vancomycin that she contact [facility] immediately, so that Flagyl could be prescribed promptly. It is important that patient does not miss any doses of her medication to prevent failed treatment of C. difficile colitis. DISPOSITION: Stable. DISCHARGE INSTRUCTIONS: 1. Location: Home. 2. Diet: Renal, low sodium diet. 3. Activity: As tolerated. 4. Followup: The patient is to follow up with Dr. Sanders at [facility] within the next 3-4 days to ensure resolution of symptoms and to ensure management be followed up on appropriately. Additionally, the patient is to follow with Dr. Yun for outpatient colonoscopy in 2-3 weeks to evaluate for other causes of GI bleeding to include AVMs. JALEN
--- NOTE | 2017-05-13 14:49 | PRG ---
DATE OF SERVICE: 05/13/2017 SUBJECTIVE: This is a 71-year-old female being seen for end-stage renal disease. The patient denies any nausea, vomiting or chest pain. OBJECTIVE: GENERAL: The patient is awake and alert. VITAL SIGNS: Afebrile, pulse 70, breathing at 16 and blood pressure 131/59. HEAD/NECK: Normocephalic. Atraumatic. EYES: EOMI. No deformity. EARS: Clear. No ulcers. NOSE: Intact. No lesions. MOUTH: Clear. No discharge. THROAT: Clear. No exudate. LUNGS: Clear. No crackles. CARDIAC: S1, S2. No rub. ABDOMEN: Benign. BS+. GENITALIA/RECTUM: Stein absent. BACK/EXTREMITIES: Edema 0+. Ulcer-. NEUROLOGICAL: Alert and motor intact. SKIN: Rash- Bruise-. LYMPHATICS: Edema-. Ulcer-. LABORATORY DATA: Hemoglobin 9.3. Potassium 3.9. ASSESSMENT AND RECOMMENDATIONS: 1. Stage 6 chronic kidney disease. Continue peritoneal dialysis. 2. Hypertension, stable. 3. Anemia, stable. 4. Medications based on glomerular filtration rate are appropriate.
--- NOTE | 2017-05-13 19:01 | PDOC.CTH ---
Cardiology Progress Note - Subjective She had a normal BM today. No bleeding. - Objective Vital Signs Temp Pulse Resp BP Pulse Ox 05/13/17 08:00 99.0 F 70 16 99 05/13/17 07:59 78 16 96 05/13/17 07:25 99 F 70 20 131/59 L 99 Admit Weight 108 lb Weight 108 lb 05/12/17 05/13/17 05/14/17 06:59 06:59 06:59 Intake Total 1050 Output Total 50 Balance -50 1050 - Physical Examination General/Neuro: alert & oriented x3, NAD Neck: no JVD present Lungs: unlabored respirations Heart: RRR Abdomen: NT/ND Extremities: other: (no edema.) - Labs Result Diagrams: 05/13/17 05:54 05/13/17 05:54 - Assessment/Plan 1. Acute blood loss anemia 2. C Diff colitis 3. Paroxysmal afib on chronic anticoagulation. 4. Severe 5. ESRD on PD. 6. COPD PLAN: - She will be discharged home today from the infection standpoint. - She will resume follow up with [facility] for TAVR evaluation. - Will plan on restarting Xarelto when deemed safe by GI after her scopes.
--- NOTE | 2017-05-17 13:37 | EKG ---
Test Reason : Blood Pressure : / mmHG Vent. Rate : 082 BPM Atrial Rate : 088 BPM P-R Int : 000 ms QRS Dur : 188 ms QT Int : 476 ms P-R-T Axes : 000 -72 097 degrees QTc Int : 556 ms Ventricular-paced rhythm Abnormal ECG Confirmed by JOANN GARCIA, MORIAH Zelaya ([id number]), editor managing newspaper CHAVA YADAV ([id number]) on 05/17/2017 1:36:33 PM Referred By: Confirmed By:MORIAH DAVID MD
[2017-05-18] MEDS ORDERED: Methotrexate Sodium 2.5 MG TAB PO SCH (09:00)
== END 2017-05-13 15:28 | disposition home or self-care (01) | DRG 371 ==
LOC: ERS 15:32 → ONC 17:33
PROVIDERS: ADMIT Family Medicine; ATTEND Family Medicine
PROC: 3E1M39Z Irrigation of Peritoneal Cavity using Dialysate, Percutaneous Approach (ICD-10-PCS; principal; 2017-05-11)
DX: A04.72 Enterocolitis due to Clostridium difficile, not specified as recurrent (principal); N18.6 End stage renal disease; I13.2 Hypertensive heart and chronic kidney disease with heart failure and with stage 5 chronic kidney disease, or end stage renal disease; Q60.3 Renal hypoplasia, unilateral; D62 Acute posthemorrhagic anemia; E87.1 Hypo-osmolality and hyponatremia; I50.22 Chronic systolic (congestive) heart failure; I48.0 Paroxysmal atrial fibrillation; J44.9 Chronic obstructive pulmonary disease, unspecified; Z79.01 Long term (current) use of anticoagulants; I35.0 Nonrheumatic aortic (valve) stenosis; Z99.2 Dependence on renal dialysis; L40.9 Psoriasis, unspecified; D53.9 Nutritional anemia, unspecified; E83.42 Hypomagnesemia
CPT/HCPCS: 36415; 36416; 74176; 80048; 80053; 83630; 83735; 85025; 86850; 86900; 86901; 87015; 87045; 87046; 87081; 87324; 87449; 87493; 87899; 90945; 93005; 94664; 96374; A4216; C9113; G0257; J3480; J7050; Q0162

== ENCOUNTER 2017-06-04 17:03 | Emergency (ER) | payer MEDICARE ==
[2017-06-04] MEDS ORDERED: Dicyclomine 20 MG TAB ONE (18:10)
[2017-06-04] MEDS ORDERED: Vancomycin HCl 25 MG/ML Oral PO SCH (18:15)
[2017-06-04 19:38] LABS: #Eosinphils 0.2 thou/uL (0.0-0.7); #Lymphocytes 1.3 thou/uL (1.20-3.40); #Monocytes 0.1 thou/uL (0.11-0.59); #Neutrophils 6.8 thou/uL (1.40-6.50); %Basophils 0.3 % (0.0-1.0); %Eosinophils 1.8 % (0.0-10.0); %Lymphocytes 15.3 % (21.0-51.0); %Monocytes 1.6 % (0.0-10.0); Hematocrit 31.3 % (36.0-47.0); Mean Platelet Volume 8.6 fL (7.4-10.4); Red Blood Cell (RBC) Count 2.62 mill/uL (4.20-5.40); White Blood Cell (WBC) Count 8.5 thou/uL (4.8-10.8)
[2017-06-04 20:02] LABS: Anion Gap 20 mmol/L (10-20); BUN (Urea Nitrogen) 22 mg/dL (9.8-20.1); Calc. Creatinine Clearance 0 mL/min (70-130); Carbon Dioxide 24 mmol/L (23-31); Chloride 99 mmol/L (98-107); Estimated GFR-MDRD 8; Magnesium 1.8 mg/dL (1.6-2.6)
== END 2017-06-04 23:14 | disposition home or self-care (01) ==
LOC: ERS 17:03
DX: A04.72 Enterocolitis due to Clostridium difficile, not specified as recurrent (principal); E03.9 Hypothyroidism, unspecified; I10 Essential (primary) hypertension; I48.91 Unspecified atrial fibrillation; J44.9 Chronic obstructive pulmonary disease, unspecified; Z87.891 Personal history of nicotine dependence
CPT/HCPCS: 36415; 80048; 83735; 85025; 96360; 96361; 96372

== ENCOUNTER 2017-06-08 15:19 | Inpatient (IN) | payer MEDICARE ==
[2017-06-08] MEDS ORDERED: Ondansetron HCl/PF 4 MG/2 ML Vial ONE ×2 (16:08→17:57)
[2017-06-08] MEDS ORDERED: Morphine 4 MG/ML VIAL ONE (17:57)
[2017-06-08 18:29] LABS: #Eosinphils 0.1 thou/uL (0.0-0.7); #Lymphocytes 0.8 thou/uL (1.20-3.40); #Monocytes 0.5 thou/uL (0.11-0.59); #Neutrophils 11.1 thou/uL (1.40-6.50); %Basophils 0.1 % (0.0-1.0); %Eosinophils 0.5 % (0.0-10.0); %Lymphocytes 6.4 % (21.0-51.0); Hemoglobin 11.6 g/dL (12.0-16.0); Mean Corpuscular HGB CONC 31.7 g/dL (32.0-36.0); Mean Corpuscular Hemoglobin 37.8 pg (27.0-31.0); Mean Platelet Volume 9.1 fL (7.4-10.4); Platelet Count 100 thou/uL (130-400); RBC Distribution Width 16.3 % (11.5-14.5); Red Blood Cell (RBC) Count 3.08 mill/uL (4.20-5.40); White Blood Cell (WBC) Count 12.4 thou/uL (4.8-10.8)
[2017-06-08 18:32] LABS: ALT (SGPT) 17 U/L (8-55); AST (SGOT) 27 U/L (5-34); Albumin 2.9 g/dL (3.4-4.8); Alkaline Phosphatase 179 U/L (40-150); Anion Gap 20 mmol/L (10-20); BUN (Urea Nitrogen) 21 mg/dL (9.8-20.1); Bilirubin, Total 0.8 mg/dL (0.2-1.2); Calc. Creatinine Clearance 0 mL/min (70-130); Carbon Dioxide 26 mmol/L (23-31); Chloride 96 mmol/L (98-107); Estimated GFR-MDRD 7; Globulin 2.9 g/dL (2.4-3.5); Glucose 108 mg/dL (80-115); Magnesium 1.3 mg/dL (1.6-2.6); Potassium 3.6 mmol/L (3.5-5.1); Protein, Total 5.8 g/dL (6.0-8.3); Sodium 138 mmol/L (136-145)
[2017-06-08] MEDS ORDERED: Acetaminophen 325 MG TAB PO PRN (20:14)
[2017-06-08] MEDS ORDERED: Ondansetron ODT 4 MG TAB PO PRN (20:14)
[2017-06-08] MEDS ORDERED: Magnesium Oxide 250 MG TAB PO SCH (20:30)
[2017-06-08] MEDS ORDERED: Epoetin (ESRD) 10,000 UNITS/ML VIAL IVP SCH (21:45)
[2017-06-08] MEDS ORDERED: Albuterol Sulfate 2.5 mg/3 ml Neb NEB PRN (21:47)
[2017-06-08] MEDS ORDERED: Magnesium 2 GM/NS 0.9% 50 ML 2 GM in Premix Bag 1 BAG IVPB SCH (22:00)
[2017-06-08] MEDS: Sodium Chloride 0.9% 1,000 ML IV SCH (22:13)
[2017-06-08] MEDS: Vancomycin HCl 25 MG/ML Oral PO SCH (22:14)
[2017-06-08] MEDS: Famotidine 20 MG TAB PO SCH (22:14)
[2017-06-08 22:26] LABS: Lactic Acid 1.8 mmol/L (0.5-2.2)
--- NOTE | 2017-06-08 23:29 | HP-2 ---
CODE STATUS: FULL. PRIMARY CARE PHYSICIAN: [facility]. ATTENDING: Dr. Alonso Valentine. RESIDENT: Elva Wood D.O. HISTORIAN: The patient and the patient's daughter. SPECIALISTS: Dr. Weir, GI and Dr. Keita, Nephrology. CHIEF COMPLAINT: Diarrhea, nausea, and vomiting. HISTORY OF PRESENT ILLNESS: The patient is a 71-year-old female with past medical history of C. diff , being treated with p.o. vancomycin, presented with intractable diarrhea, worsening, associated with crampy abdominal pain. The patient was diagnosed on 05/11/2017 from C. diff infection with p.o. van comycin for 14 days. The patient finished that course 3 days with no diarrhea and then began to deve lop diarrhea again. At first, it was bearable then became unbearable or worsened to the point where she went to the [facility], was given another round of vancomycin orally at this alcon e 250 mg daily. The patient has seen GI doctor Destin as well as has been to the ER 2 days ago since that time with worsening diarrhea. Today, she reports the diarrhea has worsened and she has also dev eloped nausea and vomiting x2, also reports severe crampy abdominal pain onset 1:00 p.m. today. She denies fever at home. Does report possible blood in her stool today, but prior has not seen any. Th e patient has not been around anybody ill. In the ER, she was given morphine 4 mg IV, Zofran 4 mg IV x2, 1 liter normal saline, and Bentyl 20 mg IM. PAST MEDICAL HISTORY: 1. The patient was born with one kidney. 2. Psoriasis. 3. Hypothyroidism. 4. Hypertension. 5. Paroxysmal atrial fibrillation. 6. Congestive heart failure. Last echo done on 08/2016 with ejection fraction of 45% to 50%. 7. End-stage renal disease on peritoneal dialysis. 8. Chronic obstructive pulmonary disease. 9. Aortic stenosis. PAST SURGICAL HISTORY: 1. Bilateral cataracts. 2. Bilateral tubal ligation. 3. Vats surgery. 4. Pericardial window in 2017. 5. AVN ablation in 2017. 6. Peritoneal dialysis catheter placement. 7. AV fistula in the right arm. 8. Pacemaker in 2016. ALLERGIES: 1. CIPRO. 2. ADHESIVE. MEDICATIONS: 1. Levothyroxine 88 mcg p.o. daily. 2. Xarelto 15 mg daily. This is being held and has been held since 05/10/2017 due to bleeding at th at time. 3. Symbicort 160/4.5 mcg actuation 2 inhalations daily. 4. Calcitriol 0.5 mcg every other day. 5. Potassium chloride 20 mEq p.o. daily. 6. Epogen injections 10,000 units per mL 2 times weekly. 7. Renvela 800 mg p.o. with meals. 8. Folic acid 1 mg p.o. daily. 9. Bentyl 10 mg p.o. q.8 hours p.r.n. 10. Ventolin HFA 1-2 puffs q.4-6 hours p.r.n. 11. Vancomycin 250 mg p.o. daily. FAMILY HISTORY: Noncontributory. SOCIAL HISTORY: The patient is a former smoker, smoked half pack a day for 40 years. No alcohol or drug use. The patient lives with her daughter at home. REVIEW OF SYSTEMS: General: Denies fever, chills, weight change. Eyes: Denies eye pain. ENT: De nies nasal congestion or rhinorrhea. Respiratory: Denies cough, congestion, or shortness of breath. Cardiovascular: Denies chest pain, palpitations. Gastrointestinal: Reports nausea, vomiting, blayne rrhea, and abdominal pain as well as possible blood in her stool. Genitourinary: Denies incontinenc e, dysuria, or polyuria. Skin: Denies rashes. Musculoskeletal: Denies pain or tenderness. Neuro: Reports generalized weakness. No numbness or syncope. Psychiatric: Denies anxiety or depression. PHYSICAL EXAMINATION: VITAL SIGNS: Blood pressure 134/43, pulse 80, respiratory rate 16, T-max 98.5, pulse ox 100% on room air. Current weight 47.63 kilograms. GENERAL: The patient is alert and oriented x4, in no acute distress, thin and appropriately interact livier. EYES: PERRLA, EOMI. Conjunctivae within normal limits. ENT: Dry mucous membranes. NECK: Supple without lymphadenopathy. CARDIOVASCULAR: Regular rate and rhythm with 4/6 systolic murmur. Radial pulses 2+. RESPIRATORY: Normal effort, no retractions, clear to auscultation bilaterally. SKIN: Warm and dry. ABDOMEN: Soft with mild suprapubic tenderness and mild guarding. Bowel sounds are hypoactive. Gretchen toneal dialysis catheter in place in the left lower quadrant. EXTREMITIES: No edema. MUSCULOSKELETAL: Structure within normal limits. Tone within normal limits. NEUROLOGIC: No focal deficits. GCS is 15. PSYCHIATRIC: Appropriate. LABORATORY DATA: CBC: White blood cell count 12.4, hemoglobin 11.6, hematocrit 36.7, platelets 100, MCV 119, 89% neutrophils. Chemistries: Sodium 138, potassium 3.6, chloride 96, CO2 of 26, BUN 21, creatinine 6.25, glucose 108 , GFR 7. Calcium 9.0, total protein 5.8, albumin 2.9, AST 27, ALT 17, alkaline phosphatase 179, tota l bilirubin 0.8, magnesium 1.3. Lactic acid 3.8. ASSESSMENT AND PLAN: 1. Dehydration, likely secondary to recurrent Clostridium diff infection. We will confirm a Clostri dium difficile infection with stool lactoferrin and FOBT. If positive, we will do stool culture for C. diff toxin. We will provide IV fluids NS at [address] the patient on clear liquid d iet due to the nausea and vomiting. We will continue Bentyl and Zofran for vomiting or for nausea. In regards to her vancomycin treatment, it appears the patient may not have been on adequate dosing. We will do p.o. vancomycin 125 mg q.i.d. x14 days. We will continue morphine for pain as needed. W e will rule out infection with blood cultures, UA, urine culture and repeat the lactic acid in 4 hour s. 2. Acute on chronic kidney injury. Dr. Keita has been consulted, likely due to dehydration. Base line creatinine of 5. We will give IV fluids and recheck. 3. Hypomagnesemia, we will replete and recheck. 4. End-stage renal disease. We will continue peritoneal dialysis daily and continue home Renvela an d Epogen. 5. Congestive heart failure. Gentle fluid hydration, although the patient is very volume down. We will give higher than maintenance fluids and keep an eye on fluid status. 6. Lactic acidosis infection versus dehydration, likely due to dehydration. We will recheck in 4 ho urs. If unchanged, we will consider adding broad-spectrum antibiotics. 7. Paroxysmal atrial fibrillation. The patient is not on anticoagulation at this time due to prior bleeding episode on the last hospitalization, they have not restarted her anticoagulation. We will c ontinue to hold, especially since patient reporting possible bleeding. FOBT is pending. We will mon itor heart rate. 8. Chronic macrocytic anemia, the patient's hemoglobin at baseline from last discharge. We will con tinue to monitor. 9. Chronic obstructive pulmonary disease. We will write her with her home medications and oxygen as needed. 10. Venous thromboembolism prophylaxis. We will do sequential compression devices due to the patien t's bleeding risk. Disposition and length of hospital stay is 1-2 days. Symptomatic medication will be provided. History and physical exam as well as management was discussed with Dr. Alonso Valentine.
[2017-06-09] MEDS: Ondansetron HCl/PF 4 MG/2 ML Vial IVP PRN ×3 (00:57→20:34)
[2017-06-09 01:14] LABS: Lactic Acid 1.1 mmol/L (0.5-2.2)
[2017-06-09 03:43] VITALS: BMI 18.6
[2017-06-09 05:05] LABS: #Eosinphils 0.1 thou/uL (0.0-0.7); #Lymphocytes 1.2 thou/uL (1.20-3.40); #Monocytes 0.7 thou/uL (0.11-0.59); #Neutrophils 10.6 thou/uL (1.40-6.50); %Basophils 0.3 % (0.0-1.0); %Lymphocytes 9.1 % (21.0-51.0); %Monocytes 5.5 % (0.0-10.0); Hemoglobin 10.7 g/dL (12.0-16.0); Mean Corpuscular HGB CONC 32.1 g/dL (32.0-36.0); Mean Corpuscular Hemoglobin 38.4 pg (27.0-31.0); Platelet Count 57 thou/uL (130-400); RBC Distribution Width 16.1 % (11.5-14.5); Red Blood Cell (RBC) Count 2.78 mill/uL (4.20-5.40); White Blood Cell (WBC) Count 12.7 thou/uL (4.8-10.8)
[2017-06-09 05:14] LABS: Anion Gap 17 mmol/L (10-20); BUN (Urea Nitrogen) 21 mg/dL (9.8-20.1); Calc. Creatinine Clearance 6 mL/min (70-130); Carbon Dioxide 25 mmol/L (23-31); Chloride 101 mmol/L (98-107); Estimated GFR-MDRD 7; Glucose 94 mg/dL (80-115); Magnesium 2.6 mg/dL (1.6-2.6); Potassium 3.9 mmol/L (3.5-5.1); Sodium 139 mmol/L (136-145)
[2017-06-09 06:40] LABS: Bilirubin Small (Negative); Blood, Urine Small (Negative); Clarity TURBID (Clear); Glucose, Urine (Dipstick) Negative (Negative); Leukocyte Large (Negative); Nitrite Negative (Negative); Protein, Urine (Dipstick) 30 mg/dL (Neg-Trace); Specific Gravity, Urine 1.022 (1.002-1.036); Urobilinogen 0.2 mg/dL (0.2-1.0); pH, Urine 5.5 (5.0-9.0)
[2017-06-09 06:41] LABS: Bacteria/HPF 4+ HPF (None Seen); Hyaline Casts/LPF 0-3 HYALINE CAST LPF (0-3 Hyaline); Pathc Cast-AUWi Flag 0.28 (0-2.49)
[2017-06-09] MEDS: Morphine 4 MG/ML VIAL SLOW IVP PRN ×2 (06:50→20:38)
[2017-06-09] MEDS: Sodium Chloride 0.9% 1,000 ML IV SCH ×3 (07:00→23:29)
--- NOTE | 2017-06-09 07:06 | HP ---
DATE OF ADMISSION: 06/08/2017 CHIEF COMPLAINT: Abdominal pain. HISTORY OF PRESENT ILLNESS: This is a 71-year-old female with extensive past medical history that includes systolic and diastolic heart failure; atrial fibrillation, status post ablation and pacemaker insertion; hypertension; end- stage renal disease, on peritoneal dialysis; and severe aortic stenosis who presented with a 1-day history of severe right upper quadrant midepigastric abdominal pain that was crampy with associated nausea and vomiting with no fever or chills. She had had few episodes similar to this before not necessarily related to food, but this one was just so bad, they called EMS and the only relief she got was with morphine. She was recently in early May diagnosed with C. diff and treated with vancomycin. She improved and had a few days of diarrhea-free after terminating her course and then had recurrence with greater than 10 BMs in a day. She was increased to 250 mg q.6 hours, that was several days ago, and then subsequently developed these symptoms and decided to come in and see us. Currently, she denies any abdominal pain, any nausea, vomiting, or other complaints. She said she did have some blood in her stool earlier today and her Xarelto has been held for the last month, because she had pretty profound bloody BM in the beginning of the month. All other systems are reviewed and are negative, unless as stated above. PAST MEDICAL HISTORY: 1. Solitary left kidney. 2. Peritoneal dialysis dependent. 3. Hypertension. 4. Atrial fibrillation. 5. Chronic systolic and diastolic heart failure. 6. Pleural effusion. 7. Chronic obstructive pulmonary disease. 8. Severe aortic stenosis. 9. Psoriasis. 10. Hypothyroidism. PAST SURGICAL HISTORY: Bilateral cataracts, bilateral tubal ligation, VATS, pericardial window, AV node ablation, pacemaker insertion, and at least 1 cath that I can find. MEDICATIONS: Include Synthroid, Xarelto, Symbicort, methotrexate p.r.n., and calcitriol, as well as vancomycin, potassium chloride, Epogen, Renvela, folic acid, and Bentyl. FAMILY HISTORY: Noncontributory. SOCIAL HISTORY: She has a past history of smoking, but recently quit. No alcohol or drug use. ALLERGIES: CIPROFLOXACIN and ADHESIVE TAPE. PHYSICAL EXAMINATION: VITAL SIGNS: Temperature 98, pulse 79, respirations 18, O2 sat 100%, BP 99/60. HEENT: Eyes without icterus or injection. Nasal cannula in place. Nares patent without rhinorrhea. Pinna normal. Dry mucous membranes. CARDIOVASCULAR: Regular rate and rhythm. She has a prominent 4/6 systolic ejection murmur that radiates across the precordium. No JVD. LUNGS: Clear to auscultation bilaterally without wheezes, rales, or rhonchi. ABDOMEN: Bowel sounds positive. Nontender to palpation. Peritoneal dialysis catheter is well appearing. : Deferred. MUSCULOSKELETAL: Without obvious deformity or contracture except for some Heberden's nodes in the upper extremities. No obvious joint effusions. SKIN: She has diffuse senile purpura. NEUROLOGIC: Cranial nerves II-XII intact, symmetric. Motor 5/5 in upper and lower extremities. Sensation intact to light touch in upper and lower extremities. PSYCHIATRIC: She is alert and oriented x3. Mood and affect appropriate for current medical condition. LABORATORY DATA: Include a white count 12.4 with 89% neutrophils, no bands noted. Hemoglobin 11.6 with an MCV of 119, platelets of 100. Sodium 138, potassium 9.6, chloride 96, bicarbonate 26, BUN 21, creatinine 6.25, lactic acid 3.8, magnesium 1.3, alkaline phosphatase 179. IMAGING: None performed in the ED. ASSESSMENT AND PLAN: 71-year-old female with, 1. Abdominal pain. DDx is wide, including intraabdominal pathology as well as AD, PE, ACS. She has a history of cholelithiasis on previous CT scan and her pain appears to be more consistent with it than with her colitis as it was not associated with any diarrhea at that time. We will go ahead and perform right upper quadrant ultrasound and repeat labs in the morning. 2. Clostridium difficile colitis. We will restart her vancomycin and likely consult GI. She has seen them recently and she is being considered for a potential fecal transplant if she failed the most recent course. Others in the differential include ischemic colitis, diverticulitis in light of the bleeding that she has seen. AAA, but none on most recent CT. We will hold off on Xarelto as more blood was witnessed recently and she has high risk for bleeding. Fecal occult ordered. 3. Dehydration with lactic acidosis. She has had quite poor p.o. intake for the last month relatively. We will hydrate her overnight and await Nephrology' s recommendations in the morning. Recheck lactate. 4. Atrial fibrillation, status post ablation. See above for discussion concerning anticoagulation. 5. Heart failure. Currently hypovolemic. We will monitor fluid status closely. 6. Chronic obstructive pulmonary disease. Symbicort and nebs as needed. 7. Severe aortic stenosis. She has been considered for a TAVR in the past and evidently has had one appointment in [place], was unable to make the subsequent one because of her current illness. 8. Psoriasis, hold methotrexate. 9. End-stage renal disease. We will await Nephrology's recommendations. 10. Gastrointestinal prophylaxis. We will go ahead and order H2 marcy with diet. 11. Deep venous thrombosis prophylaxis. We will go ahead and go with SCDs. As she has seen recent blood in a BM, we will order Hemoccult. MURIELD
--- NOTE | 2017-06-09 07:10 | CON ---
DATE OF CONSULTATION: 06/08/2017 CONSULTING PHYSICIAN: Dr. Goss. REASON FOR CONSULTATION: End-stage renal disease evaluation and care on peritoneal dialysis. REASON FOR ADMISSION: Diarrhea. HISTORY OF PRESENT ILLNESS: A 71-year-old female with history of end-stage renal disease on peritone al dialysis, hypertension, congestive heart failure, atrial fibrillation, aortic stenosis, cataract, who came to the hospital with diarrhea and she was recently diagnosed with C. diff and was being janine skyler for that. She has been having frequent diarrhea with some nausea, vomiting, and today morning, s he was found to be very weak and was brought to the hospital. She is also having abdominal pain. Maria Ines cotton tolerated PD well last night and denies any cloudy PD fluid. No fever or chills reported. Radha thompson was at the bedside. No skin rash. Patient does have chronic psoriasis. PAST MEDICAL HISTORY: Positive for solitary kidney, psoriasis, hypothyroidism, hypertension, end-sta ge renal disease on peritoneal dialysis, congestive heart failure, aortic stenosis. PAST SURGICAL HISTORY: Cataract surgery, PD catheter placement, tubal ligation, pericardial window, AV ablation, thoracostomy. HOME MEDICATIONS: Levothyroxine, Xarelto, Symbicort, methotrexate, calcitrol, potassium chloride, Ep ogen, Renvela, folic acid, Bentyl. ALLERGIES: CIPRO and ADHESIVE. SOCIAL HISTORY: No smoking, alcohol, or illicit drug abuse. FAMILY HISTORY: No history of kidney disease. REVIEW OF SYSTEMS: The following complete review of systems was negative, unless otherwise mentioned in the HPI or below: Constitutional: Weight loss or gain, ability to conduct usual activities. Skin: Rash, itching. Eyes: Double vision, pain. ENT/Mouth: Nose bleeding, neck stiffness, pain, tenderness. Cardiovascular: Palpitations, dyspnea on exertion, orthopnea. Respiratory: Shortness of breath, wheezing, cough, hemoptysis, fever or night sweats. Gastrointestinal: Poor appetite, abdominal pain, heartburn, nausea, vomiting, constipation, or diarr hea. Genitourinary: Urgency, frequency, dysuria, nocturia. Musculoskeletal: Pain, swelling. Neurologic/Psychiatric: Anxiety, depression. Allergy/Immunologic: Skin rash, bleeding tendency. PHYSICAL EXAMINATION: GENERAL: This is a well-built female, in mild to moderate distress. VITAL SIGNS: Temperature 98.5, pulse 80, respiratory rate 18, blood pressure 134/43. HEENT: Atraumatic, normocephalic. Oral mucosa is moist. NECK: Supple. CARDIOVASCULAR: S1, S2. Rate and rhythm regular. RESPIRATORY: Clear. MUSCULOSKELETAL: 1+ edema. DERMATOLOGIC: No skin rash. NEUROLOGIC: Alert and awake. PSYCHIATRIC: Mood and affect normal. LABORATORY DATA: Hemoglobin 11.6, potassium is 3.2. BUN is 21, creatinine is 6.25. ASSESSMENT AND PLAN: 1. End-stage renal disease, patient on peritoneal dialysis. We will hold peritoneal dialysis today, but we will send peritoneal dialysis fluid for culture per peritonitis protocol. 2. Edema, controlled. 3. Moderate hypoalbuminemia with moderate protein energy malnutrition. 4. Anemia. Hemoglobin is stable. Currently on Epogen. 5. Hypertension. Blood pressure is stable. Plan is to continue on peritoneal dialysis as tolerated. No dialysis tonight. We will send periton eal dialysis fluid for culture. Thank you for the consultation. We will follow.
--- NOTE | 2017-06-09 07:58 | PDOC.FM ---
- Subjective Subjective: Pt feels much better this morning. She states that she has not had a BM since last night and her abdominal pain has resolved. There were no acute events over night. - Objective MAR Reviewed: Yes Vital Signs & Weight: Vital Signs (12 hours) Temp Pulse Resp BP Pulse Ox 06/09/17 04:00 98.4 F 80 20 107/50 L 98 06/09/17 00:00 98.0 F 81 20 112/63 99 06/08/17 20:14 98.0 F 79 18 99/60 100 I&O: 06/08/17 06/09/17 06/10/17 06:59 06:59 06:59 Intake Total 1500 Output Total 100 Balance 1400 Result Diagrams: 06/09/17 03:46 06/09/17 03:46 Phys Exam - Physical Examination Constitutional: NAD HEENT: PERRLA, moist MMs Neck: no nodes, no JVD Respiratory: clear to auscultation bilateral Cardiovascular: RRR, no significant murmur Gastrointestinal: soft, non-tender, no distention, positive bowel sounds PD cath in place, clean, not infected Musculoskeletal: no edema Neurological: non-focal, normal sensation, moves all 4 limbs Lymphatic: no nodes Psychiatric: normal affect, A&O x 3 Skin: no rash, normal turgor Dx/Plan (1) Dehydration Code(s): E86.0 - DEHYDRATION Status: Acute (2) Clostridium difficile diarrhea Code(s): A04.7 - ENTEROCOLITIS DUE TO CLOSTRIDIUM DIFFICILE * DO NOT USE * Status: Acute (3) Lactic acid acidosis Code(s): E87.2 - ACIDOSIS Status: Resolved (4) Anemia in chronic kidney disease, on chronic dialysis Code(s): N18.6 - END STAGE RENAL DISEASE; D63.1 - ANEMIA IN CHRONIC KIDNEY DISEASE; Z99.2 - DEPENDENCE ON RENAL DIALYSIS Status: Chronic (5) Thrombocytopenia Code(s): D69.6 - THROMBOCYTOPENIA, UNSPECIFIED Status: Chronic (6) Afib Code(s): I48.91 - UNSPECIFIED ATRIAL FIBRILLATION Status: Chronic (7) COPD (chronic obstructive pulmonary disease) Status: Chronic (8) End stage renal disease Code(s): N18.6 - END STAGE RENAL DISEASE Status: Chronic - Plan Plan: 1. Dehydration 2/2 C diff diarrhea - pt is being gently re hydrated dt CHF. Her fluid states appears to be improved. BP and HR are normal - Consider stopping today with PO intake within restrictions - Continue PO Vanc. and lactobacillus - Diarrhea has improved since admission. Stool studies are still pending as pt has not had a BM since they have been ordered. 2. CHF - Currently controlled and at baseline - no edema or O2 requirement - monitor status while getting IVF 3.CKD IV on PD - Dr Keita has been consulted. Will restart PD tonight - electrolytes are normal - PD catheter is clean and does not appear to be infected. - low concern for intra abdominal infection 4. Thrombocytopenia - Likely secondary to CKD. Platelets are typically low, however they are lower than typical. - Monitor CBC - Continue to hold xarelto - Pt is not currently bleeding, however she did have a bloody BM in the ED 5. Anemia of Chronic disease - Pt at baseline. - Asymptomatic - Monitor CBC 6. Afib - Antithrombotic therapy is currently being held dt concern of GI bleed and low platelet 7. COPD - Currently at baseline and without additional O2 need - continue home dulera 8. hypothyroid - continue home synthroid 9. Lactic acid acidosis - resolved. was most likely 2/2 volume status
--- NOTE | 2017-06-09 08:06 | ULT ---
ULTRASOUND ABDOMEN LIMITED: (RIGHT UPPER QUADRANT) DATE: 06/09/17. TIME: 6:29 a.m. HISTORY: A 71-year-old female with right upper quadrant abdominal pain. FINDINGS: Gallbladder: Heterogeneous borderline wall thickening up to 3 mm. Question tiny amount of pericholec ystic edema. Fine layer of tiny mobile calculi suspected. There is a positive sonographic Donohue's sign according to the ticket broker. Common duct: Dilated to 8 mm. A tiny hyperechoic focus within the inferior portion of the common callie e duct at the level of the pancreatic head may represent a calculus. Liver: Nonspecific diffusely slightly increased echogenicity and slightly coarse echotexture. Pancreas: Atrophic and difficult to visualize. Right kidney: Very atrophic, and not visualized on this ultrasound study (visualized as very small on noncontrast CT of 05/11/17). IMPRESSION: 1. Possible choledocholithiasis causing mild dilation of the common duct. 2. Probable cholelithiasis. 3. Possibility of acute cholecystitis. 4. Very atrophic right kidney. J CARLOS Brady POS: ROBERTO
[2017-06-09] MEDS: Potassium Chloride 20 MEQ TAB PO SCH (08:56)
[2017-06-09] MEDS: Sevelamer Carbonate 800 MG TAB PO SCH ×3 (08:57→16:57)
[2017-06-09] MEDS: Calcitriol 0.25 MCG CAP PO SCH ×2 (08:58→12:51)
[2017-06-09] MEDS: Folic Acid 1 MG TAB PO SCH ×2 (08:58→12:52)
[2017-06-09] MEDS: Levothyroxine Sodium 88 MCG TAB PO SCH ×2 (08:59→12:51)
[2017-06-09] MEDS: Lactinex Tablet PO SCH ×2 (08:59→12:51)
[2017-06-09] MEDS: Vancomycin HCl 25 MG/ML Oral PO SCH ×4 (08:59→20:41)
[2017-06-09] MEDS ORDERED: Vancomycin HCl 25 MG/ML Oral PO SCH (09:00)
[2017-06-09] MEDS ORDERED: Lactinex Tablet PO SCH (09:00)
[2017-06-09] MEDS ORDERED: Magnesium Oxide 250 MG TAB PO SCH (09:00)
[2017-06-09] MEDS: Mometasone/Formoterol 120 PUFF INHALER INH SCH ×2 (12:22→19:46)
--- NOTE | 2017-06-09 15:39 | ADD-PRG ---
ADDENDUM DATE OF SERVICE: 06/09/2017 This is an addendum to the note of Dr. Parveen Brown. Ms. Hayes was admitted with chronic and recurrent diarrhea and a history of Clostridium difficile. She has, however, had no bowel movement since admission. We are going to proceed with stool culture and lactoferrin if she is able to obtain, this is a stool specimen. In the event, she states that s he is feeling somewhat improved. Should she demonstrate diarrhea further with C. diff. She may be a candidate for fecal transplant if not responding to the p.o. vancomycin.
[2017-06-09] MEDS: Famotidine 20 MG TAB PO SCH (20:41)
--- NOTE | 2017-06-09 23:08 | PRG ---
DATE OF SERVICE: 06/09/2017 SUBJECTIVE: Patient was seen and examined at bedside and overnight events noted. Patient denies any shortness of breath or chest pain or palpitation. No history of nausea or vomiting or diarrhea or f ever or chills or cramps. OBJECTIVE: GENERAL: This is a well-built white male in no apparent distress. VITAL SIGNS: Temperature 98.3, pulse 87, respiratory rate 18, blood pressure 115/64. HEENT: Atraumatic, normocephalic. Oral mucosa is moist. NECK: Supple. CARDIOVASCULAR: S1, S2 heard. Rate and rhythm regular. RESPIRATORY: Clear to auscultation. GASTROINTESTINAL: Abdomen is soft. MUSCULOSKELETAL: No tenderness, no edema. DERMATOLOGIC: No skin rash. NEUROLOGIC: Alert and awake and oriented x3. No focal neurologic deficits. Moving all the extremit ies. PSYCHIATRIC: Mood and affect normal. LABORATORY DATA: Potassium is 3.9, BUN is 21, creatinine 6.1. ASSESSMENT AND PLAN: 1. End-stage renal disease. We will continue on peritoneal dialysis. 2. Edema, controlled. 3. Moderate hypoalbuminemia. 4. Anemia. , we will continue on Epogen. 5. Hypertension, stable. Plan is to continue on dialysis as tolerated. We will follow.
[2017-06-10 05:14] LABS: #Eosinphils 0.4 thou/uL (0.0-0.7); #Lymphocytes 1.1 thou/uL (1.20-3.40); #Monocytes 0.5 thou/uL (0.11-0.59); #Neutrophils 11.5 thou/uL (1.40-6.50); %Basophils 0.2 % (0.0-1.0); %Eosinophils 2.7 % (0.0-10.0); %Lymphocytes 8.3 % (21.0-51.0); %Monocytes 3.5 % (0.0-10.0); %Neutrophils 85.2 % (42.0-75.0); Hemoglobin 9.3 g/dL (12.0-16.0); Mean Corpuscular HGB CONC 32.1 g/dL (32.0-36.0); Mean Corpuscular Hemoglobin 38.7 pg (27.0-31.0); Mean Platelet Volume 9.6 fL (7.4-10.4); Platelet Count 78 thou/uL (130-400); RBC Distribution Width 15.6 % (11.5-14.5); Red Blood Cell (RBC) Count 2.39 mill/uL (4.20-5.40); White Blood Cell (WBC) Count 13.5 thou/uL (4.8-10.8)
[2017-06-10 05:34] LABS: Anion Gap 15 mmol/L (10-20); BUN (Urea Nitrogen) 24 mg/dL (9.8-20.1); Calc. Creatinine Clearance 7 mL/min (70-130); Calcium 7.8 mg/dL (7.8-10.44); Carbon Dioxide 22 mmol/L (23-31); Chloride 105 mmol/L (98-107); Estimated GFR-MDRD 7; Glucose 90 mg/dL (80-115); Potassium 3.1 mmol/L (3.5-5.1); Sodium 139 mmol/L (136-145)
[2017-06-10] MEDS: Mometasone/Formoterol 120 PUFF INHALER INH SCH ×2 (07:43→19:00)
[2017-06-10] MEDS: Vancomycin HCl 25 MG/ML Oral PO SCH ×4 (08:25→20:27)
[2017-06-10] MEDS: Calcitriol 0.25 MCG CAP PO SCH (08:26)
[2017-06-10] MEDS: Sevelamer Carbonate 800 MG TAB PO SCH ×3 (08:26→17:00)
[2017-06-10] MEDS: Folic Acid 1 MG TAB PO SCH (08:27)
[2017-06-10] MEDS: Levothyroxine Sodium 88 MCG TAB PO SCH (08:27)
[2017-06-10] MEDS: Potassium Chloride 20 MEQ TAB PO SCH ×2 (08:27→12:35)
[2017-06-10] MEDS: Lactinex Tablet PO SCH (08:27)
--- NOTE | 2017-06-10 08:43 | PDOC.FM ---
- Subjective Subjective: Pt states that she feels better today and no longer has abd pain and diarrhea has resolved. She has not had a bm at all since admission, however. She denies RUQ tenderness, fever, chills, n/v, and all other symptoms in ROS. There were no acute events over night. - Objective Vital Signs & Weight: Vital Signs (12 hours) Temp Pulse Resp BP Pulse Ox 06/09/17 20:50 98.1 F 82 18 117/51 L 98 Weight Admit Weight 47.6 kg Weight 47.6 kg I&O: 06/09/17 06/10/17 06/11/17 06:59 06:59 06:59 Intake Total 1500 1650 Output Total 100 0 Balance 1400 1650 Result Diagrams: 06/10/17 04:00 06/10/17 04:00 <Parveen Brown - Last Filed: 06/10/17 08:42> - Objective Vital Signs & Weight: Vital Signs (12 hours) Temp Pulse Resp BP Pulse Ox 06/10/17 08:00 97.8 F 81 18 112/64 98 Weight Admit Weight 47.6 kg Weight 47.6 kg I&O: 06/09/17 06/10/17 06/11/17 06:59 06:59 06:59 Intake Total 1500 1650 120 Output Total 100 0 Balance 1400 1650 120 Result Diagrams: 06/10/17 04:00 06/10/17 08:56 <Sherri Biswas - Last Filed: 06/10/17 12:58> Phys Exam - Physical Examination Constitutional: NAD HEENT: PERRLA, moist MMs Neck: no nodes, no JVD, supple, full ROM Respiratory: clear to auscultation bilateral Cardiovascular: RRR 4/6 systolic murmur, pt has known Gastrointestinal: soft, non-tender, no distention, positive bowel sounds Musculoskeletal: no edema Neurological: non-focal, normal sensation, moves all 4 limbs Lymphatic: no nodes Psychiatric: normal affect, A&O x 3 Skin: no rash, normal turgor <Parveen Brown - Last Filed: 06/10/17 08:42> Dx/Plan (1) Dehydration Code(s): E86.0 - DEHYDRATION Status: Acute (2) Clostridium difficile diarrhea Code(s): A04.7 - ENTEROCOLITIS DUE TO CLOSTRIDIUM DIFFICILE * DO NOT USE * Status: Acute (3) Lactic acid acidosis Code(s): E87.2 - ACIDOSIS Status: Resolved (4) Anemia in chronic kidney disease, on chronic dialysis Code(s): N18.6 - END STAGE RENAL DISEASE; D63.1 - ANEMIA IN CHRONIC KIDNEY DISEASE; Z99.2 - DEPENDENCE ON RENAL DIALYSIS Status: Chronic (5) Thrombocytopenia Code(s): D69.6 - THROMBOCYTOPENIA, UNSPECIFIED Status: Chronic (6) Afib Code(s): I48.91 - UNSPECIFIED ATRIAL FIBRILLATION Status: Chronic (7) COPD (chronic obstructive pulmonary disease) Status: Chronic (8) End stage renal disease Code(s): N18.6 - END STAGE RENAL DISEASE Status: Chronic - Plan Plan: 1. Dehydration 2/2 C diff diarrhea - Her fluid states appears to be euvolemic. BP and HR are normal - Stop IVF today - Continue PO Vanc. and lactobacillus - Diarrhea has improved since admission. Stool studies are still pending as pt has not had a BM since they have been ordered. 2. CHF - Currently controlled and at baseline - no edema or O2 requirement 3.CKD IV on PD - Dr Keita has been consulted. Had PD last night - K is low, will recheck when PD is complete and replace if needed - PD catheter is clean and does not appear to be infected. - low concern for intra abdominal infection as initial PD fluid cx appear normal 4. Thrombocytopenia - Likely secondary to CKD. Platelets improved today - Monitor CBC - Continue to hold xarelto, will restart if negative FOBT - Pt is not currently bleeding, however she did have a bloody BM in the ED 5. Anemia of Chronic disease - Pt at baseline. - Asymptomatic - Monitor CBC 6. Afib - Antithrombotic therapy is currently being held dt concern of GI bleed and low platelet 7. COPD - Currently at baseline and without additional O2 need - continue home dulera 8. hypothyroid - continue home synthroid 9. Lactic acid acidosis - resolved. was most likely 2/2 volume status 10. Hypokalemia - pending level after PD, will replace po - pt is currently asymptomatic 11. Neutrophilia - WBC count continues to trend upward. - vitals are normal - most likely infectious source include UTI, colitis, or cholecystitis 12.Possible choledocolithiasis - per US read. Pt is currently non tender, however has been npo. She denies a hx of biliary colic. - bili and LFT are normal, will recheck today 13. Pyuria - unclear if this is due to dirty catch or actual UTI. - Cultures are pending - given up trending WBC count, will consider starting empiric abx <Parveen Brown - Last Filed: 06/10/17 08:42> Attending Addendum - Attending Addendum I personally evaluated the patient and discussed the management with Dr. Brown. I agree with the History, Examination, Assessment and Plan documented above with any addition or exceptions noted below. The patient's UTI is growing e coli. Will add antibiotic coverage. Abdominal u /s showing choledocholithiasis and possible cholecystitis. Pt does not have RUQ tenderness today but has in the past few days. Will consult GI. Stool cultures still pending as she has not had a bowel movement since admission. <Sherri Biswas - Last Filed: 06/10/17 12:58>
[2017-06-10] MEDS ORDERED: FLU VACC TS2017-18 (>65YR) 0.5 ML SYRINGE IM ONE (09:00)
[2017-06-10 09:50] LABS: ALT (SGPT) 18 U/L (8-55); AST (SGOT) 30 U/L (5-34); Albumin 2.5 g/dL (3.4-4.8); Alkaline Phosphatase 152 U/L (40-150); Anion Gap 15 mmol/L (10-20); BUN (Urea Nitrogen) 23 mg/dL (9.8-20.1); Bilirubin, Total 0.6 mg/dL (0.2-1.2); Calc. Creatinine Clearance 7 mL/min (70-130); Carbon Dioxide 22 mmol/L (23-31); Chloride 104 mmol/L (98-107); Estimated GFR-MDRD 7; Globulin 2.6 g/dL (2.4-3.5); Glucose 81 mg/dL (80-115); Potassium 3.2 mmol/L (3.5-5.1); Protein, Total 5.1 g/dL (6.0-8.3); Sodium 138 mmol/L (136-145)
[2017-06-10] MEDS ORDERED: Potassium Chloride 20 MEQ/100 ML PREMIX BAG IVPB SCH (11:30)
[2017-06-10] MEDS ORDERED: STERILE WATER SLOW IVP SCH (14:00)
[2017-06-10] MEDS ORDERED: CEFTRIAXONE ROCEPHIN SLOW IVP SCH (14:00)
--- NOTE | 2017-06-10 18:35 | PRG ---
DATE OF SERVICE: 06/10/2017 SUBJECTIVE: Patient was seen and examined at bedside and overnight events noted. Patient denies any shortness of breath or chest pain or palpitation. No history of nausea or vomiting or diarrhea or f ever or chills or cramps. OBJECTIVE: GENERAL: This is an elderly female in no apparent distress. VITAL SIGNS: Temperature 97.8, pulse 81, respiratory rate 18, blood pressure 112/64. HEENT: Atraumatic, normocephalic. Oral mucosa is moist. NECK: Supple. CARDIOVASCULAR: S1, S2 heard. Rate and rhythm regular. RESPIRATORY: Clear to auscultation. GASTROINTESTINAL: Abdomen is soft. MUSCULOSKELETAL: No tenderness. No edema. DERMATOLOGIC: No skin rash. NEUROLOGIC: Alert and awake and oriented x3. No focal neurologic deficits. Moving all the extremiti es. PSYCHIATRIC: Mood and affect normal. DATE OF SERVICE 06/10/2017. LABORATORY DATA: Potassium is 3.2, BUN is 23, creatinine is 5.7. ASSESSMENT AND PLAN: 1. End-stage renal disease. We will continue on peritoneal dialysis as tolerated. 2. Hypokalemia, replace. 3. Edema, controlled. 4. Anemia. Continue Epogen as tolerated. 5. Moderate hypoalbuminemia. Plan is to continue peritoneal dialysis as tolerated. We will add Epogen. We will follow.
[2017-06-10] MEDS ORDERED: Epoetin (ESRD) 10,000 UNITS/ML VIAL SC SCH (20:00)
[2017-06-10] MEDS: Famotidine 20 MG TAB PO SCH (20:22)
[2017-06-10] MEDS: STERILE WATER SLOW IVP SCH (20:38)
[2017-06-10] MEDS: CEFTRIAXONE ROCEPHIN SLOW IVP SCH (20:38)
[2017-06-10] MEDS ORDERED: Sulfameth/Trimethoprim DS 800-160mg TAB PO SCH (21:00)
[2017-06-10] MEDS ORDERED: CEFTRIAXONE ROCEPHIN IVPB SCH (21:00)
[2017-06-10] MEDS ORDERED: SODIUM CHLORIDE 0.9% IVPB SCH (21:00)
--- NOTE | 2017-06-10 22:11 | CON ---
DATE OF CONSULTATION: 06/10/2017 REASON FOR CONSULTATION: Abdominal pain, diarrhea. CONSULTING PHYSICIAN: Parveen Brown D.O. HISTORY OF PRESENT ILLNESS: The patient is a 71-year-old female with past medical history of systolic/diastolic heart failure, atrial fibrillation, status post ablation, pacemaker placement, hypertension, end-stage renal disease on peritoneal dialysis, severe aortic stenosis and recurrent Clostridium difficile infection, presenting with complaints of abdominal pain and diarrhea. She was recently discharged from the hospital after being adequately treated for Clostridium difficile infection with oral vancomycin when she began to have increased watery diarrhea after the completion of her oral antibiotics. She was subsequently seen in the GI clinic on 06/05/2017 and had already been restarted on oral vancomycin 250 mg 4 times daily with mild improvement in her symptoms. She was instructed to continue her antibiotics and discharged to home. Approximately 2 days later, she had significant worsening of right-sided abdominal pain characterized as sharp, stabbing type pain, located in the midepigastric and right upper quadrant, nonradiating, with no clear alleviating or exacerbating factors. The pain was sudden in onset and did not follow a crescendo or decrescendo pattern, associated with his right upper quadrant abdominal pain with increased nausea and vomiting with nonbloody emesis with the increased severity of this abdominal pain that prompted her to seek health care attention and brought her to the [facility] ER. Per chart review, there was some mention of a minimal amount of blood in one of her bowel movements initially upon admission, but she had not had any further episodes of bright red blood per rectum. PAST MEDICAL HISTORY: As per HPI. PAST SURGICAL HISTORY: Bilateral cataract repair, bilateral tubal ligation, VATS, pericardial window, AV node ablation, pacemaker insertion, cardiac catheterization. FAMILY HISTORY: No GI malignancies. SOCIAL HISTORY: Denies any smoking, alcohol or illicit drug use. ALLERGIES: CIPROFLOXACIN and ADHESIVE TAPE. REVIEW OF SYSTEMS: A 12-category review of systems was obtained with all responses negative except for the pertinent positives as listed in HPI. OUTPATIENT MEDICATIONS: Synthroid, Symbicort, methotrexate as needed and calcitriol, Epogen, Renvela, folic acid, Bentyl as needed, potassium chloride, vancomycin 250 mg q.6 hours. PHYSICAL EXAMINATION: VITAL SIGNS: Temperature of 97.8, pulse 81, blood pressure 112/64, respiratory rate 18, satting 98% on 2 liters nasal cannula. GENERAL: The patient is in no acute distress. Alert and oriented x4. HEENT: Normocephalic, atraumatic. Pupils are equal and round, reactive to light. Extraocular movements are intact. NECK: Supple, with no discernible JVD. CARDIOVASCULAR: Regular rate and rhythm with no discernible murmurs, gallops or rubs. RESPIRATORY: Clear to auscultation bilaterally with no discernible wheezes or rales. ABDOMEN: Normoactive bowel sounds, soft, nondistended. Mild tenderness to palpation in the right upper quadrant and mid epigastric regions. No rebound tenderness or guarding. EXTREMITIES: No cyanosis, clubbing or edema. LABORATORY DATA: CBC with a white blood cell count of 13.5, hemoglobin 9.3, hematocrit 28.9, platelets 78. Chemistry with a sodium of 138, potassium 3.2, chloride 104, carbon dioxide 22, BUN 23, creatinine 5.78, glucose 81, AST 30, ALT 18, alkaline phosphatase 152, total bilirubin 0.6, albumin 2.5. IMAGING STUDIES: Right upper quadrant abdominal ultrasound obtained on 2017 showing gallbladder wall mildly thickened at 3 mm with trace pericholecystic fluid. Common bile duct was minimally dilated at 8 mm with a possible hyperechoic focus in the distal common bile duct. ASSESSMENT AND PLAN: The patient is a 71-year-old female with past medical history of systolic/diastolic heart failure, atrial fibrillation, status post ablation and pacemaker insertion, hypertension, end-stage renal disease on peritoneal dialysis and severe aortic stenosis, presenting with probable recurrence of Clostridium difficile colitis, but with abnormal imaging concerning for possible choledocholithiasis. Clostridium difficile colitis: The patient presenting with a recent history of Clostridium difficile colitis for which she was ultimately placed on oral vancomycin 125 mg every 6 hours and discharged to home. Shortly after completion of her antibiotic therapy, she had recurrence of increased voluminous , watery stools concerning for recurrence of her infection. She was ultimately placed back on oral vancomycin 250 mg every 6 hours by her primary care physician with improvement of her watery diarrhea afterwards. Currently, she describes resolution of her abdominal pain as well as a lack of watery bowel movements consistent with increased diarrhea. At this time, the increase in her watery diarrhea seen last week is most consistent with a recurrence of her Clostridium difficile with appropriate increase dosing of oral vancomycin. We would continue with 125mg oral vancomycin q.6 hours for recurrent Clostridium difficile infection and assess for response. If she is not responding to the above regimen, we would strongly consider fecal transplantation for treatment of a recurrent Clostridium difficile. Abdominal pain/possible choledocholithiasis: The patient is also presenting with acute onset of right upper quadrant/midepigastric abdominal pain that occurred approximately 2 days ago. Her pain was described as sudden in onset reaching its maximum intensity within seconds to minutes after onset and did not follow a crescendo or decrescendo pattern consistent with biliary type pain. Upon admission to the [facility], she did have a right upper quadrant ultrasound that showed possible minimal dilation of the common bile duct at 8 mm and a possible hyperechoic focus in the distal CBD concerning for choledocholithiasis. However, her current LFTs are not indicative of an obstructive type pattern consistent with choledocholithiasis although further evaluation for this abnormal finding is indicated. At this time, other diagnoses on the differential could include mesenteric ischemia, ischemic colitis, choledocholithiasis (less likely), Clostridium difficile colitis. We would obtain a CT scan of the abdomen and pelvis for adequate visualization of the right upper quadrant and would strongly consider a CT angiography to determine for possible ischemia to various regions of the bowel given her history of atrial fibrillation and possible embolic source. We would continue to trend LFTs daily, given concern for possible choledocholithiasis. ERCP is not indicated at this time given the low likelihood of choledocholithiasis. [facility]
[2017-06-11 05:30] LABS: #Basophils 0.1 thou/uL (0.0-0.2); #Eosinphils 0.2 thou/uL (0.0-0.7); #Lymphocytes 0.9 thou/uL (1.20-3.40); #Monocytes 0.4 thou/uL (0.11-0.59); #Neutrophils 7.6 thou/uL (1.40-6.50); %Basophils 0.6 % (0.0-1.0); %Eosinophils 2.7 % (0.0-10.0); %Lymphocytes 9.5 % (21.0-51.0); %Monocytes 4.8 % (0.0-10.0); %Neutrophils 82.5 % (42.0-75.0); Hemoglobin 8.7 g/dL (12.0-16.0); Mean Corpuscular HGB CONC 32.4 g/dL (32.0-36.0); Mean Corpuscular Hemoglobin 38.6 pg (27.0-31.0); Mean Platelet Volume 9.7 fL (7.4-10.4); Platelet Count 70 thou/uL (130-400); RBC Distribution Width 15.7 % (11.5-14.5); Red Blood Cell (RBC) Count 2.25 mill/uL (4.20-5.40); White Blood Cell (WBC) Count 9.2 thou/uL (4.8-10.8)
[2017-06-11 05:40] LABS: ALT (SGPT) 15 U/L (8-55); AST (SGOT) 22 U/L (5-34); Albumin 2.2 g/dL (3.4-4.8); Alkaline Phosphatase 135 U/L (40-150); Anion Gap 14 mmol/L (10-20); BUN (Urea Nitrogen) 22 mg/dL (9.8-20.1); Bilirubin, Total 0.5 mg/dL (0.2-1.2); Calc. Creatinine Clearance 7 mL/min (70-130); Calcium 7.7 mg/dL (7.8-10.44); Carbon Dioxide 21 mmol/L (23-31); Chloride 104 mmol/L (98-107); Estimated GFR-MDRD 8; Globulin 2.4 g/dL (2.4-3.5); Glucose 107 mg/dL (80-115); Potassium 3.5 mmol/L (3.5-5.1); Protein, Total 4.6 g/dL (6.0-8.3); Sodium 135 mmol/L (136-145)
--- NOTE | 2017-06-11 06:39 | PDOC.FM ---
- Subjective Subjective: Pt doing well this morning with no specific complaint. She denies continued abd pain. Her diarrhea has resolved. She denies any new symptoms. - Objective Vital Signs & Weight: Vital Signs (12 hours) Temp Pulse Resp 06/10/17 20:00 97.8 F 81 18 Weight Admit Weight 47.6 kg Weight 47.6 kg I&O: 06/09/17 06/10/17 06/11/17 06:59 06:59 06:59 Intake Total 1500 1650 1400 Output Total 100 0 180 Balance 1400 1650 1220 Result Diagrams: 06/11/17 04:58 06/11/17 04:58 <Pareven Brown - Last Filed: 06/11/17 06:36> - Objective Vital Signs & Weight: Vital Signs (12 hours) Temp Pulse Resp BP Pulse Ox 06/11/17 08:00 98.4 F 82 20 113/65 96 Weight Admit Weight 47.6 kg Weight 47.6 kg I&O: 06/10/17 06/11/17 06/12/17 06:59 06:59 06:59 Intake Total 1650 1400 Output Total 0 180 Balance 1650 1220 Result Diagrams: 06/11/17 04:58 06/11/17 04:58 <Sherri Biswas - Last Filed: 06/11/17 13:13> Phys Exam - Physical Examination Constitutional: NAD HEENT: PERRLA, moist MMs Neck: no nodes, no JVD, supple, full ROM Respiratory: clear to auscultation bilateral Cardiovascular: RRR holosystolic murmur. Known Gastrointestinal: soft, non-tender, no distention, positive bowel sounds Musculoskeletal: no edema Neurological: non-focal, normal sensation, moves all 4 limbs Lymphatic: no nodes Psychiatric: normal affect, A&O x 3 Skin: no rash <Parveen Brown - Last Filed: 06/11/17 06:36> Dx/Plan (1) Dehydration Code(s): E86.0 - DEHYDRATION Status: Acute (2) Clostridium difficile diarrhea Code(s): A04.7 - ENTEROCOLITIS DUE TO CLOSTRIDIUM DIFFICILE * DO NOT USE * Status: Acute (3) Lactic acid acidosis Code(s): E87.2 - ACIDOSIS Status: Resolved (4) Anemia in chronic kidney disease, on chronic dialysis Code(s): N18.6 - END STAGE RENAL DISEASE; D63.1 - ANEMIA IN CHRONIC KIDNEY DISEASE; Z99.2 - DEPENDENCE ON RENAL DIALYSIS Status: Chronic (5) Thrombocytopenia Code(s): D69.6 - THROMBOCYTOPENIA, UNSPECIFIED Status: Chronic (6) Afib Code(s): I48.91 - UNSPECIFIED ATRIAL FIBRILLATION Status: Chronic (7) COPD (chronic obstructive pulmonary disease) Status: Chronic (8) End stage renal disease Code(s): N18.6 - END STAGE RENAL DISEASE Status: Chronic - Plan Plan: 1. Dehydration 2/2 C diff diarrhea - Euvolemic. BP and HR are normal - Continue PO Vanc. and lactobacillus - Diarrhea has improved since admission. Stool studies are still pending as pt has not had a BM since they have been ordered. - Seen by Dr Weir, GI, yesterday who recommends continued PO vanc and consideration of fecal transplant if there is no response. He additionally recommended a CTA to evaluate for possible mesenteric ischemia. This was ordered for today 2. CHF - Currently controlled and at baseline - no edema or O2 requirement 3.CKD IV on PD - Dr Keita has been consulted. Has PD nightly - PD catheter is clean and does not appear to be infected. - High protein diet, consult dietary 4. Thrombocytopenia - Likely secondary to CKD. Platelets are stable - Monitor CBC - Continue to hold xarelto, will restart if negative FOBT - Pt is not currently bleeding, however she did have a bloody BM in the ED 5. Anemia of Chronic disease - Pt at baseline. - Asymptomatic - Monitor CBC 6. Afib - Antithrombotic therapy is currently being held dt concern of GI bleed and low platelet 7. COPD - Currently at baseline and without additional O2 need - continue home dulera 8. hypothyroid - continue home synthroid 9. Lactic acid acidosis - resolved. was most likely 2/2 volume status 10. Hypokalemia - resolved. monitory CMP 11. Neutrophilia - Treated for UTI yesterday with rocephin - WBC trended downward into normal range 12.Possible choledocolithiasis - Seen by GI as above. Does not think this is choledocolithiasis. Is more concerned for ischemia as above. 13. Pyuria - cultures show rinaldi sensitive e coli - rocephin started yesterday <Parveen Brown - Last Filed: 06/11/17 06:36> Attending Addendum - Attending Addendum I personally evaluated the patient and discussed the management with Dr. Brown. I agree with the History, Examination, Assessment and Plan documented above with any addition or exceptions noted below. The patient is going for CTA abdomen today. She notes she ate some crackers this morning and tolerated them. Still hasn't had a bowel movement. Will continue PO vanc. Appreciate GI recs. <Sherri Biswas - Last Filed: 06/11/17 13:13>
[2017-06-11] MEDS: Mometasone/Formoterol 120 PUFF INHALER INH SCH ×2 (08:00→20:04)
[2017-06-11] MEDS: Levothyroxine Sodium 88 MCG TAB PO SCH (09:15)
[2017-06-11] MEDS: Lactinex Tablet PO SCH (09:15)
[2017-06-11] MEDS: Folic Acid 1 MG TAB PO SCH (09:15)
[2017-06-11] MEDS: Potassium Chloride 20 MEQ TAB PO SCH (09:15)
[2017-06-11] MEDS: Calcitriol 0.25 MCG CAP PO SCH (09:16)
[2017-06-11] MEDS: Vancomycin HCl 25 MG/ML Oral PO SCH ×4 (09:21→20:56)
[2017-06-11] MEDS: Sevelamer Carbonate 800 MG TAB PO SCH ×3 (09:21→15:21)
--- NOTE | 2017-06-11 09:39 | CT ---
CT ANGIO OF ABDOMEN PERFORMED WITH INTRAVENOUS CONTRAST ENHANCEMENT WITH 3D RECONSTRUCTIONS: History: Abdominal pain, evaluation for mesenteric ischemia. Patient is on dialysis. FINDINGS: The lung bases show some chronic change. There is a small left effusion noted. The liver shows no focal abnormalities on this angiographic phase exam. The spleen is 11.1 cm in jaciel th. Pancreas region is unremarkable. There is some increased attenuation within the gallbladder which could represent sludge or small stones. Ultrasound would be required for assessment. Right and left adrenal glands are normal. The right kidney is severely atrophic. Left kidney is ania l in size and not obstructed. Angiographic portion of the study shows extensive atherosclerotic plaque involving the aorta with pro minent areas of intraluminal thrombus, particularly at the level of the renal arteries where there is moderate narrowing to the contrast column within the aorta related to the prominent soft plaque manny g the posterior wall of the aorta. There is extensive atherosclerotic change of the celiac and superior mesenteric arteries. There is ve ry mild narrowing of the origins of both. There is extensive plaque formation and areas of fairly sig nificant narrowing involving the more distal aspect of the superior mesenteric artery. There is no ev idence for any bowel wall thickening. The inferior mesenteric artery is patent. IMPRESSION: 1. Extensive atherosclerotic disease of the aorta with intraluminal thrombus. This is causing fairly significant narrowing to the aorta at the level of the renal arteries. There is also extensive plaque formation and areas of fairly significant narrowing in the more distal superior mesenteric artery. N o significant stenosis of the celiac artery but extensive atherosclerotic changes noted. 2. Severely atrophic right kidney. 3. Questionable sludge or small stones within the gallbladder. POS: ROBERTO
[2017-06-11] MEDS: CEFTRIAXONE ROCEPHIN SLOW IVP SCH ×2 (10:43→22:08)
[2017-06-11] MEDS: STERILE WATER SLOW IVP SCH ×2 (10:43→22:08)
[2017-06-11] MEDS ORDERED: Bisacodyl 5 MG TAB PO PRN (12:10)
[2017-06-11] MEDS: Ondansetron HCl/PF 4 MG/2 ML Vial IVP PRN (15:22)
--- NOTE | 2017-06-11 19:08 | PRG ---
DATE OF SERVICE: 06/11/2017 REASON FOR CONSULTATION: Abdominal pain, diarrhea. SUBJECTIVE: Overnight, patient had no further recurrence of her admitting right upper quadrant/midep igastric abdominal pain. She did complain of some midepigastric abdominal soreness earlier today justino t resolved with just rest and lying in bed. She also states that her diarrhea has since resolved wit h no bowel movement today. Currently, denies any nausea, vomiting, fevers, chills, shortness of axel th, abdominal pain, diarrhea or constipation. PHYSICAL EXAMINATION: VITAL SIGNS: Temperature 98.4, pulse 82, blood pressure 113/65, respiratory rate 20, satting 96% on 2 liters nasal cannula. GENERAL: Patient is in no acute distress. Alert and oriented x4. CARDIOVASCULAR: Regular rate and rhythm with no discernible murmurs, gallops or rubs. RESPIRATORY: Clear to auscultation bilaterally with no discernible wheezes or rales. ABDOMEN: Normoactive bowel sounds, soft, nondistended, mild tenderness to palpation in the right upp er quadrant and mid epigastric regions. No rebound tenderness or guarding. EXTREMITIES: No cyanosis, clubbing or edema. LABORATORY DATA: CBC with a white blood cell count of 9.2, hemoglobin 8.7, hematocrit 26.9, platelet s 70. Chemistry with a sodium of 135, potassium 3.5, chloride 104, CO2 of 21, BUN 22, creatinine 5.4 3, glucose 107, AST 22, ALT 15, alkaline phosphatase 135, total bilirubin 0.5. IMAGING STUDIES: CT angiography obtained on 06/10/2017 showing extensive atherosclerotic disease of the aorta with intraluminal thrombus causing significant narrowing of the aorta at the level of the r enal arteries. There is also extensive plaque formation and areas of significant narrowing in the mo re distal superior mesenteric artery, no significant stenosis of the celiac artery was noted, althoug h atherosclerotic changes are present. ASSESSMENT: The patient is a 71-year-old female with past medical history of systolic/diastolic hear t failure, atrial fibrillation on anticoagulation, status post ablation and pacemaker insertion, hype rtension, end-stage renal disease on peritoneal dialysis and severe aortic stenosis, presenting with probable recurrence of Clostridium difficile colitis and imaging findings concerning for mesenteric i schemia/ischemic colitis. Clostridium difficile colitis. The patient is presenting with a recent history of Clostridium diff c olitis for which she was ultimately placed on oral vancomycin 125 mg q.6 hours and discharged home. She had recurrence and was subsequently placed back on oral vancomycin 250 mg q.6 hours by her primar care physician with improvement of her watery diarrhea afterwards. Since being placed back on the oral vancomycin, she has had complete resolution of her diarrhea with no bowel movements today at all . At this time, we would continue the patient on oral vancomycin every 6 hours for Clostridium difficil e infection and assess response. If she is not responding to the above regimen, we strongly consider fecal transplantation. Abdominal pain/possible mesenteric ischemia or ischemic colitis. Patient presenting with acute onset of right upper quadrant/midepigastric abdominal pain that occurred approximately 2 days prior to adm ission. The pain was sudden in onset reaching its maximum intensity within seconds to minutes after onset and did not follow a crescendo/decrescendo pattern, consistent with biliary pain. She did have a small bright red bloody bowel movement shortly before admission. In association with this increas ed abdominal pain. Initial imaging on admission was concerning for possible choledocholithiasis, but given her current LFT pattern, it is not consistent with this diagnosis. However, CT angiography ob tained during this admission did show significant narrowing due to atherosclerotic changes in the sup erior mesenteric artery territory, which could potentially create a situation of mesenteric ischemia and/or ischemic colitis which then could produce a bloody bowel movement. At this time, with the inc reased diarrhea and volume loss associated with the recurrence of her colostrum difficile, it is poss ible that it could cause hypotension which could then affect blood flow to the watershed areas within the gastrointestinal tract. Further trending of LFTs daily is no longer needed given the low likelihood of possible choledocholit hiasis. ERCP is not indicated at this time given this low likelihood. We would maintain normotensiv e pressures given the higher likelihood of possible ischemic changes due to mesenteric ischemia or is chemic colitis. Continue treatment of Clostridium difficile colitis as above. We would advance diet as tolerated with a more solid diet to determine recurrence of abdominal pain. We will continue to follow. Please page with any questions.
--- NOTE | 2017-06-11 20:35 | PRG ---
DATE OF SERVICE: 06/11/2017 SUBJECTIVE: Patient was seen and examined at bedside and overnight events noted. Patient denies any shortness of breath or chest pain or palpitation. No history of nausea or vomitin g or diarrhea or fever or chills or cramps. OBJECTIVE: GENERAL: Elderly female, in no apparent distress. VITAL SIGNS: Temperature 98.4, pulse 82, respiratory rate 18, blood pressure 113/65. HEENT: Atraumatic, normocephalic. Oral mucosa is moist NECK: Supple. CARDIOVASCULAR: S1 and S2 heard. Rate and rhythm regular. RESPIRATORY: Clear to auscultation. GASTROINTESTINAL: Abdomen is soft. MUSCULOSKELETAL: No tenderness. No edema. DERMATOLOGIC: No skin rash. NEUROLOGIC: Alert and awake and oriented X3, No focal neurologic deficits. Moving all the extremitie s. PSYCHIATRIC: Mood and affect normal. LABORATORY DATA: Potassium is 3.5, BUN 22, creatinine 5.4. ASSESSMENT AND PLAN: 1. End-stage renal disease, currently on peritoneal dialysis as tolerated. 2. Edema, controlled. 3. Hypertension, stable. 4. Anemia. We will continue ASA as tolerated. Plan is to continue ASA. We will follow.
[2017-06-11] MEDS: Famotidine 20 MG TAB PO SCH (20:56)
[2017-06-12 06:29] LABS: #Eosinphils 0.2 thou/uL (0.0-0.7); #Lymphocytes 0.9 thou/uL (1.20-3.40); #Monocytes 0.4 thou/uL (0.11-0.59); #Neutrophils 5.9 thou/uL (1.40-6.50); %Basophils 0.5 % (0.0-1.0); %Eosinophils 3.2 % (0.0-10.0); %Lymphocytes 12.4 % (21.0-51.0); %Monocytes 5.7 % (0.0-10.0); %Neutrophils 78.3 % (42.0-75.0); ALT (SGPT) 16 U/L (8-55); AST (SGOT) 24 U/L (5-34); Albumin 2.5 g/dL (3.4-4.8); Alkaline Phosphatase 144 U/L (40-150); Anion Gap 12 mmol/L (10-20); BUN (Urea Nitrogen) 21 mg/dL (9.8-20.1); Bilirubin, Total 0.4 mg/dL (0.2-1.2); Calc. Creatinine Clearance 8 mL/min (70-130); Calcium 8.1 mg/dL (7.8-10.44); Carbon Dioxide 25 mmol/L (23-31); Chloride 102 mmol/L (98-107); Estimated GFR-MDRD 8; Globulin 2.4 g/dL (2.4-3.5); Glucose 98 mg/dL (80-115); Mean Corpuscular HGB CONC 32.2 g/dL (32.0-36.0); Mean Corpuscular Hemoglobin 38.5 pg (27.0-31.0); Mean Platelet Volume 9.6 fL (7.4-10.4); Platelet Count 75 thou/uL (130-400); Potassium 3.7 mmol/L (3.5-5.1); Protein, Total 4.9 g/dL (6.0-8.3); Red Blood Cell (RBC) Count 2.34 mill/uL (4.20-5.40); Sodium 135 mmol/L (136-145); White Blood Cell (WBC) Count 7.5 thou/uL (4.8-10.8)
--- NOTE | 2017-06-12 06:47 | PDOC.FM ---
- Subjective Subjective: Pt feels well today with no specific complains. She has not had a recurrence of abd pain and is tolerating PO food well. She has still yet to have a bm since admission. There were no acute events over night. - Objective Vital Signs & Weight: Vital Signs (12 hours) Temp Pulse Resp BP Pulse Ox 06/11/17 20:00 97.8 F 79 18 125/60 97 Weight Admit Weight 47.6 kg Weight 47.6 kg I&O: 06/10/17 06/11/17 06/12/17 06:59 06:59 06:59 Intake Total 1650 1400 140 Output Total 0 180 389 Balance 1650 1220 -249 Result Diagrams: 06/12/17 05:46 06/12/17 05:46 <Parveen Brown - Last Filed: 06/12/17 11:42> - Objective Vital Signs & Weight: Vital Signs (12 hours) Temp Pulse Resp BP Pulse Ox 06/12/17 08:00 98.2 F 82 18 109/58 L 95 Weight Admit Weight 47.6 kg Weight 47.6 kg I&O: 06/11/17 06/12/17 06/13/17 06:59 06:59 06:59 Intake Total 1400 140 Output Total 180 389 Balance 1220 -249 Result Diagrams: 06/12/17 05:46 06/12/17 05:46 <Sherri Biswas - Last Filed: 06/12/17 13:09> Phys Exam - Physical Examination HEENT: PERRLA, moist MMs Neck: no nodes, no JVD Respiratory: clear to auscultation bilateral Cardiovascular: RRR Systolic murmur, known Gastrointestinal: soft, non-tender, no distention, positive bowel sounds Musculoskeletal: no edema Neurological: non-focal, normal sensation, moves all 4 limbs Psychiatric: normal affect, A&O x 3 Skin: no rash <Parveen Brown - Last Filed: 06/12/17 11:42> Dx/Plan (1) Clostridium difficile diarrhea Code(s): A04.7 - ENTEROCOLITIS DUE TO CLOSTRIDIUM DIFFICILE * DO NOT USE * Status: Acute (2) Dehydration Code(s): E86.0 - DEHYDRATION Status: Resolved (3) Lactic acid acidosis Code(s): E87.2 - ACIDOSIS Status: Resolved (4) Anemia in chronic kidney disease, on chronic dialysis Code(s): N18.6 - END STAGE RENAL DISEASE; D63.1 - ANEMIA IN CHRONIC KIDNEY DISEASE; Z99.2 - DEPENDENCE ON RENAL DIALYSIS Status: Chronic (5) Thrombocytopenia Code(s): D69.6 - THROMBOCYTOPENIA, UNSPECIFIED Status: Chronic (6) Afib Code(s): I48.91 - UNSPECIFIED ATRIAL FIBRILLATION Status: Chronic (7) COPD (chronic obstructive pulmonary disease) Status: Chronic (8) End stage renal disease Code(s): N18.6 - END STAGE RENAL DISEASE Status: Chronic - Plan Plan: 1. Dehydration 2/2 C diff diarrhea - Euvolemic. BP and HR are normal - Continue PO Vanc. per GI recs. - Diarrhea has improved since admission. Stool studies are still pending as pt has not had a BM since they have been ordered. - Seen by Dr Weir, GI, yesterday who recommends continued PO vanc and consideration of fecal transplant if there is no response. - CTA shows some narrowing at SMA, per GI, this may be the cause of bloody BM and abd pain - Will monitor recurrence of pain while restarting food. 2. CHF - Currently controlled and at baseline - no edema or O2 requirement 3.CKD IV on PD - Dr Keita has been consulted. Has PD nightly - PD catheter is clean and does not appear to be infected. - High protein diet, consult dietary 4. Thrombocytopenia - Likely secondary to CKD. Platelets are stable - Monitor CBC - Continue to hold xarelto, will restart if negative FOBT - Pt is not currently bleeding, however she did have a bloody BM in the ED 5. Anemia of Chronic disease - Pt at baseline. - Asymptomatic - Monitor CBC 6. Afib - Antithrombotic therapy is currently being held dt concern of GI bleed and low platelet 7. COPD - Currently at baseline and without additional O2 need - continue home dulera 8. hypothyroid - continue home synthroid 9. Lactic acid acidosis - resolved. was most likely 2/2 volume status 10. Hypokalemia - resolved. monitory CMP 11. Neutrophilia - Treated for UTI yesterday with rocephin - WBC trended downward into normal range 12.Possible choledocolithiasis - Seen by GI as above. Does not think this is choledocolithiasis. Is more concerned for ischemia as above. 13. Pyuria - cultures show rinaldi sensitive e coli - rocephin started yesterday Dispo: Pt stable. Continue to monitor how patient does on a diet. Pt ready for dc. <Parveen Brown - Last Filed: 06/12/17 11:42> Attending Addendum - Attending Addendum I personally evaluated the patient and discussed the management with Dr. Brown. I agree with the History, Examination, Assessment and Plan documented above with any addition or exceptions noted below. The patient's CTA results were reviewed. Consistent with mesenteric ischemia. She has no more abdominal pain. She is tolerating PO intake. She has been cleared for discharge by GI. <Sherri Biwsas - Last Filed: 06/12/17 13:09>
[2017-06-12] MEDS: Mometasone/Formoterol 120 PUFF INHALER INH SCH (07:49)
[2017-06-12] MEDS ORDERED: Epoetin (ESRD) 10,000 UNITS/ML VIAL SC SCH (09:00)
[2017-06-12 09:10] VITALS: TEMP 98.2
[2017-06-12] MEDS: Vancomycin HCl 25 MG/ML Oral PO SCH ×2 (09:19→13:45)
[2017-06-12] MEDS: Sevelamer Carbonate 800 MG TAB PO SCH ×2 (09:19→11:49)
[2017-06-12] MEDS: Calcitriol 0.25 MCG CAP PO SCH (09:20)
[2017-06-12] MEDS: Lactinex Tablet PO SCH (09:20)
[2017-06-12] MEDS: Folic Acid 1 MG TAB PO SCH (09:20)
[2017-06-12] MEDS: Potassium Chloride 20 MEQ TAB PO SCH (09:20)
[2017-06-12] MEDS: Levothyroxine Sodium 88 MCG TAB PO SCH (09:20)
[2017-06-12] MEDS: CEFTRIAXONE ROCEPHIN SLOW IVP SCH (11:47)
[2017-06-12] MEDS: STERILE WATER SLOW IVP SCH (11:47)
--- NOTE | 2017-06-12 12:53 | PRG ---
DATE OF SERVICE: 06/12/2017 REASON FOR CONSULTATION: Abdominal pain, diarrhea. SUBJECTIVE: Overnight, the patient had no further recurrence of her right upper quadrant/midepigastric abdominal pain. She was able to tolerate a clear liquid and finally able to tolerate chicken soup, Chilo crackers and peanut butter crackers with no recurrence of her abdominal pain. She also states that she has not had a bowel movement over the last 24-48 hours indicating resolution of her diarrhea. Currently, she denies any nausea, vomiting, fevers , chills, shortness of breath, abdominal pain, diarrhea or constipation. PHYSICAL EXAMINATION: VITAL SIGNS: Temperature of 98.2, pulse 82, blood pressure 109/58, respiratory rate 18, satting 95% on room air. GENERAL: The patient is in acute distress. She is alert and oriented x4. CARDIOVASCULAR: Regular rate and rhythm with no discernible murmurs, gallops or rubs. RESPIRATORY: Clear to auscultation bilaterally with no discernible wheezes or rales. ABDOMEN: Normoactive bowel sounds, soft, nontender, and nondistended. Mild tenderness to palpation in the right upper quadrant and midepigastric regions. No rebound tenderness or guarding. EXTREMITIES: No cyanosis, clubbing or edema. LABORATORY DATA: CBC with a white blood cell count of 7.5, hemoglobin 9, hematocrit 27.9, platelets 75. Chemistry with sodium 135, potassium 3.7, chloride 102, CO2 25, BUN 21, creatinine 5.24, glucose 98, AST 24, ALT 16, alkaline phosphatase 144, total bilirubin 0.4. IMAGING DATA: No further imaging studies are available for review at this time. However, CT angiography obtained on 06/10/2017 showed extensive atherosclerotic disease of the aorta with intraluminal thrombus causing significant narrowing of the aorta at the level of the renal arteries. She also showed extensive plaque formation and significant narrowing of the more distal aspects of the superior mesenteric artery. ASSESSMENT AND PLAN: The patient is a 71-year-old female with past medical history of systolic/ diastolic heart failure, atrial fibrillation on anticoagulation. Also, status post ablation and pacemaker placement, hypertension, end-stage renal disease on peritoneal dialysis and severe aortic stenosis presenting with probable recurrence of Clostridium difficile colitis and imaging findings concerning for mesenteric ischemia/ischemic colitis. Clostridium difficile colitis The patient is presenting with a recent history of Clostridium difficile colitis for which she was ultimately placed on oral vancomycin 125 mg every 6 hours and discharged to home in 05/2017. She had recurrence at the end of 2016 and was subsequently placed back on oral vancomycin by her primary care physician with improvement of her watery diarrhea afterwards. With the acute onset of her recent abdominal pain, she did have 1 or 2 episodes of watery bowel movements, but again this has resolved with continued administration of oral vancomycin every 6 hours. At this time, it seems that the oral vancomycin is adequately suppressing or treating the Clostridium difficile colitis. - We will continue with this above regimen until seen in the GI clinic in approximately 1 week. Abdominal pain/possible mesenteric ischemia or ischemic colitis The patient presented with acute onset of right upper quadrant/midepigastric abdominal pain that occurred approximately 2 days prior to admission. The pain was not consistent with biliary type pain, but associated with a small bright red bloody bowel movement shortly before admission. Initial imaging was concerning for possible choledocholithiasis, but given her current and recent LT pattern, this diagnosis is not consistent with current clinical picture. However, CT angiography obtained on 06/10/2017 showed significant narrowing due to atherosclerotic changes in the distal portions of the superior mesenteric artery which could create a situation of mesenteric ischemia and/or ischemic colitis and international account representative produce a bloody bowel movement and increased abdominal pain. At this time, her abdominal pain has resolved as well as her diarrhea with IV fluid administration and oral vancomycin. - She also has a follow up in the GI clinic within 1 week for further evaluation. The patient can be discharged from the hospital with follow up in the GI clinic. We will sign off at this time. Please call with any additional questions. JALEN
[2017-06-12 14:14] VITALS: BP 117/62
--- NOTE | 2017-06-12 23:14 | PRG ---
DATE OF SERVICE: 06/12/2017 SUBJECTIVE: Patient was seen and examined at bedside and overnight events noted. Patient denies shortness of breath or cramps or chest pain or palpitation. No Nausea or vomiting or diarrhea or fever or chills. OBJECTIVE: GENERAL: This is an elderly female in no apparent distress. VITAL SIGNS: Temperature 98.2, pulse 80, respiratory rate 18, blood pressure 179/62. Musculoskeletal : No tenderness, No edema HEENT: Atraumatic normocephalic Neck: Supple Cardiovascular: S1S2 heard, Rate and rhythm regular Respiratory: Clear to auscultation Gastrointestinal: Abdomen is soft Dermatologic : No skin rash Neurologic: Alert and awake and oriented X3 No focal neurologic deficits. Moving all the extremities. Psychiatric: Mood and affect normal LABORATORY DATA: Potassium is 3.7, BUN is 21, creatinine is 5.2. ASSESSMENT AND PLAN: 1. End-stage renal disease. Continue on peritoneal dialysis as tolerated. 2. Edema, controlled. 3. Hypertension. 4. Hypokalemia, better. 5. Anemia. Continue Epogen. Overall, the patient is tolerating PD well. We will continue PD. No peritonitis reported. MTDD
--- NOTE | 2017-06-13 11:11 | DIS-2 ---
DATE OF ADMISSION: 06/08/2017. DATE OF DISCHARGE: 06/12/2017. RESIDENT: Parveen Brown DO ADMITTING ATTENDING: Alonso Valentine MD DISCHARGE ATTENDING: Sherri Biswas M.D. CONSULTATIONS: Dr. Jorge Weir and Dr. Sherita Keita, Nephrology. PRIMARY DIAGNOSIS: Dehydration secondary to recurrent Clostridium difficile infection. SECONDARY DIAGNOSES: Include acute on chronic, eating and in injury, hypomagnesemia, end-stage renal disease, congestive heart failure, lactic acidosis, paroxysmal atrial fibrillation, chronic macrocytic anemia and chronic obstructive pulmonary disease. DISCHARGE MEDICATIONS: Lactobacillus acidophilus 1 capsule p.o. daily, Calcitriol 0.5 mcg p.o. daily, levothyroxine 88 mcg p.o. daily, Procrit 10,000 unit syringe IM weekly, methotrexate 2.5 mg p.o. q.7 hours, Symbicort 160 mg/ 4.5 mg 2 puffs p.o. b.i.d., folic acid 1 mg p.o. daily, potassium chloride 20 mEq p.o. q.a.m., Renvela 800 mg p.o. t.i.d., vancomycin 250 mg p.o. q.6 hours, Dulcolax 5 mg p.o. daily p.r.n. constipation. DISCONTINUED MEDICATIONS: None. HOSPITAL COURSE: The patient was admitted for dehydration after recurrent uncontrollable diarrhea due to Clostridium difficile infection. She had previously been treated with p.o. Flagyl and is currently being treated with p.o. vancomycin; however, the patient had difficulty maintaining her volume status outpatient and was admitted due to dehydration. The patient was gently rehydrated due to the known CHF until her tachycardia improved. Additionally, she was worked up for concern of infection. Peritoneal dialysis fluid showed negative culture. The urine culture was positive for E. coli. Patient was treated with Rocephin for the UTI. While hospitalized, the patient received nightly PD and her volume status and electrolytes were well controlled. An ultrasound while admitted showed a possible choledocholithiasis. This prompted a GI consult, who felt that the symptoms were more likely to be associated with the mesenteric ischemia than choledocholithiasis and the patient was not appropriate for an ERCP. A CTA was done that showed a narrowing of the superior mesenteric artery. This was a likely cause of some of the patient's symptoms. On the day of admission, she complained of abdominal pain and noticed 1 bloody bowel movement, it was determined that the patient was at this point well rehydrated. Electrolytes were out of control and that the remaining GI problems could be managed as an outpatient with continuation of p.o. antibiotics and follow up with GI. DISPOSITION: Stable. DISCHARGE INSTRUCTIONS: 1. Location: Home. 2. Diet: High protein renal diet. 3. Activity: Ad ananya. 4. Followup: With Dr. Weir in 2 weeks. Follow up with her PCP [facility] in one week. JALEN
== END 2017-06-12 14:26 | disposition home health service (06) | DRG 371 ==
LOC: ERS 15:19 → T4-B 20:10
PROVIDERS: ADMIT Emergency Medicine; ATTEND Emergency Medicine
PROC: 3E1M39Z Irrigation of Peritoneal Cavity using Dialysate, Percutaneous Approach (ICD-10-PCS; principal; 2017-06-09)
DX: A04.71 Enterocolitis due to Clostridium difficile, recurrent (principal); N18.6 End stage renal disease; I13.2 Hypertensive heart and chronic kidney disease with heart failure and with stage 5 chronic kidney disease, or end stage renal disease; E44.0 Moderate protein-calorie malnutrition; K55.1 Chronic vascular disorders of intestine; E87.2 Acidosis; D69.59 Other secondary thrombocytopenia; E83.42 Hypomagnesemia; N39.0 Urinary tract infection, site not specified; Z68.1 Body mass index [BMI] 19.9 or less, adult; I50.42 Chronic combined systolic (congestive) and diastolic (congestive) heart failure; Q60.0 Renal agenesis, unilateral; E86.0 Dehydration; I48.0 Paroxysmal atrial fibrillation; D53.9 Nutritional anemia, unspecified; J44.9 Chronic obstructive pulmonary disease, unspecified; Z99.2 Dependence on renal dialysis; Z95.0 Presence of cardiac pacemaker; E03.9 Hypothyroidism, unspecified; D63.1 Anemia in chronic kidney disease; I35.0 Nonrheumatic aortic (valve) stenosis; L40.9 Psoriasis, unspecified
CPT/HCPCS: 36415; 74175; 76705; 80048; 80053; 81003; 81015; 83605; 83735; 85025; 87040; 87070; 87077; 87086; 87186; 87205; 90945; 96361; 96372; 96374; 96375; 96376; A4216; G0257; J0696; J2270; J2405; J3475; J3480; Q0162; Q4081

== ENCOUNTER 2017-10-23 12:27 | Inpatient (IN) | payer MEDICARE, OTHER ==
[2017-10-23] MEDS ORDERED: Acetaminophen 500 MG TAB ONE (12:59)
[2017-10-23 13:35] LABS: #Basophils 0.1 thou/uL (0.0-0.2); #Lymphocytes 0.8 thou/uL (1.20-3.40); #Monocytes 1.1 thou/uL (0.11-0.59); #Neutrophils 11.9 thou/uL (1.40-6.50); %Eosinophils 0.1 % (0.0-10.0); %Lymphocytes 5.9 % (21.0-51.0); %Monocytes 7.6 % (0.0-10.0); %Neutrophils 85.4 % (42.0-75.0); Anisocytosis SLIGHT = 6-15 cells (100X) (0-5/hpf); Hemoglobin 11.3 g/dL (12.0-16.0); Hypochromia SLIGHT = 6-15 cells (100X) (0-5/hpf); Large Platelets SLIGHT; MDiff Complete? YES; Macrocytosis SLIGHT = 6-15 cells (100X) (0-5/hpf); Mean Corpuscular HGB CONC 35.4 g/dL (32.0-36.0); Mean Corpuscular Hemoglobin 39.7 pg (27.0-31.0); Mean Platelet Volume 10.9 fL (7.4-10.4); Ovalocytes SLIGHT = 2-5 cells (100X) (0-1/hpf); PLT Morphology Comment Appears Decreased; Platelet Count 119 thou/uL (130-400); Polychromasia SLIGHT = 2-3 cells (100X) (0-2/hpf); RBC Distribution Width 17.4 % (11.5-14.5); Red Blood Cell (RBC) Count 2.84 mill/uL (4.20-5.40); Stomatocytes SLIGHT = 2-5 cells (100X) (0-1/hpf)
[2017-10-23 13:37] LABS: ALT (SGPT) 18 U/L (8-55); AST (SGOT) 25 U/L (5-34); Alkaline Phosphatase 202 U/L (40-150); Anion Gap 19 mmol/L (10-20); BUN (Urea Nitrogen) 31 mg/dL (9.8-20.1); Bilirubin, Total 1.9 mg/dL (0.2-1.2); CK (CPK) 71 U/L (29-168); Calc. Creatinine Clearance 0 mL/min (70-130); Calcium 8.9 mg/dL (7.8-10.44); Carbon Dioxide 23 mmol/L (23-31); Chloride 92 mmol/L (98-107); Estimated GFR-MDRD 7; Glucose 114 mg/dL (83-110); Potassium 3.7 mmol/L (3.5-5.1); Sodium 130 mmol/L (136-145)
[2017-10-23 13:41] LABS: CKMB 3.6 ng/mL (0-6.6)
[2017-10-23 13:47] LABS: Troponin I 0.459 ng/mL (< 0.028)
--- NOTE | 2017-10-23 14:25 | RAD ---
CHEST TWO VIEWS: HISTORY: COPD and dyspnea. COMPARISON: 10/10/2016 FINDINGS: Two views of the chest show an enlarged but stable cardiomediastinal silhouette. The pacemaker is un changed in position. Increased interstitial markings are present. There is blunting of the right co stophrenic angle, which may represent a small pleural effusion or scarring. No change has occurred c ompared to the prior exam. IMPRESSION: Stable exam. POS: ROBERTO
[2017-10-23] MEDS ORDERED: Enoxaparin Sodium 60 MG/0.6 ML SYRINGE ONE (14:57)
[2017-10-23] MEDS ORDERED: Sodium Chloride 0.9% 100 ML ONE (15:57)
[2017-10-23] MEDS ORDERED: Piperacillin/Tazobactam 3.375 GM VIAL ONE (15:57)
[2017-10-23] MEDS ORDERED: HYDROcodone/Acetaminophen 5/325 mg Tablet ONE (15:57)
[2017-10-23 16:30] LABS: Troponin I 0.401 ng/mL (< 0.028)
[2017-10-23] MEDS ORDERED: Calcium Carbonate 500 MG ChewTAB PO PRN (18:22)
[2017-10-23] MEDS ORDERED: Ondansetron HCl/PF 4 MG/2 ML Vial IVP PRN (18:22)
[2017-10-23] MEDS ORDERED: Acetaminophen 325 MG TAB PO PRN (18:22)
[2017-10-23 18:29] VITALS: BMI 23.8
[2017-10-23 19:11] LABS: Lactic Acid 1.2 mmol/L (0.5-2.2)
[2017-10-23 19:32] LABS: Critical Call Chem Troponin I RESULT DECREASING; Troponin I 0.393 ng/mL (< 0.028)
[2017-10-23] MEDS ORDERED: Sodium Chloride 0.9% 500 ML IV SCH (21:00)
--- NOTE | 2017-10-23 21:27 | PDOC.FPRHP ---
- History of Present Illness Chief Complaint: weakness, dry cough, fever History of Present Illness: 72 yo F with PMG of ESRD on PD, CHF, aortic stenosis, htn, copd presents for cc of weakness, dry cough and fever. Pt reports s/s have been present for approx 1 week and have worsened since onset. She denies cp, sob, nvdc, pleuritic type pain. She does endorse fever, chills, congestion. Denies erythema or pain around PD site. Denies exacerbating or remitting factors. Does c/o hoarse voice. Per ER record family reported she was not acting her normal self and seemed to be more tired and less alert. She denied any numbness, tingling and focal weakness. ED Course: Pt was given vancomycin, zosyn, therapuetic lovenox, - Allergies/Adverse Reactions Allergies Allergy/AdvReac Type Severity Reaction Status Date / Time ciprofloxacin [From Cipro] Allergy Intermediate BLISTERS Verified 10/23/17 22:22 adhesive Allergy Verified 10/23/17 22:22 - Home Medications Medication Instructions Recorded Confirmed Type Levothyroxine Sodium 88 mcg PO QAM 05/23/15 10/23/17 History Epoetin [Procrit] 10,000 syr IM ASDIR 09/08/15 10/23/17 History Methotrexate Sodium 1 tab PO Q7DAYS 09/08/15 10/23/17 History Budesonide-Formoterol [Symbicort 2 inhaler PO BID 10/10/16 10/23/17 History 160-4.5] Folic Acid [Folvite] 1 mg PO DAILY tab 12/14/16 10/23/17 Rx Sevelamer Carbonate [Renvela] 800 mg PO TID-WM tab 12/14/16 10/23/17 Rx Hydrocodone Bit/Acetaminophen 1 - 2 tablet PO Q6HR PRN 10/23/17 10/23/17 History [HYDROcodone Bit/Acetaminophen] Potassium Chloride [K-Dur] 20 meq PO Q2DAYS 10/23/17 10/23/17 History - History PMHx: HTN, hypothyroidism, paroxysmal A. fib, COPD, ESRD on PD, HFpEF (08/23 with EF 45-50%), severe aortic stenosis, psoriasis, hx SD '16, hx tachybrady syndrome s/p pacemaker PSHx: BTL, pericardial window, thoracostomy, AV fistula, PD catheter, pacemaker , AV tavo ablation, cardiac catheterization 09/22, VATS procedure FHx: Mother - breast cancer age 47. Children - healthy Social: Smoked 1ppd for 40 yrs. Quit 3 yrs ago. Denies alcohol or drug use. - Review of Systems General: reports: fever/chills, fatigue. denies: weight/appetite/sleep changes , night sweats Eyes: denies: eye pain, vision changes ENT: reports: nasal congestion. denies: rhinorrhea Respiratory: reports: cough, congestion. denies: shortness of breath Cardiovascular: denies: chest pain, palpitation, edema Gastrointestinal: denies: nausea, vomiting, diarrhea, constipation, abdominal pain Genitourinary: denies: dysuria, polyuria Skin: denies: rashes, lesions Musculoskeletal: denies: pain, arthritis/arthralgias Neurological: denies: numbness, syncope, weakness (no focal weakness) - Vital signs BP: 99/36 HR: 88 RR: 20 Tmax: 101.4 Pox: 100% on RA Wt: 50Kg - Physical Exam Constitutional: NAD, awake, alert and oriented HEENT: normocephalic and atraumatic, PERRLA, EOMI, conjunctiva clear, grossly normal vision, grossly normal hearing Neck: supple, FROM, trachea midline, no LAD, no JVD, no thyromegaly Chest: no-tender to palpation Heart: RRR, normal S1/S2, pulses present, other (2/6 TYRA) Lungs: no respiratory distress, good air movement, no retractions, other ( scattered rhonchi) Abdomen: soft, non-tender, bowel sounds present Musculoskeletal: normal structure, ROM grossly normal Neurological: no focal deficit, CN II-XII intact Skin: good turgor, capillary refill <2 seconds, no jaundice Heme/Lymphatic: no unusual bruising or bleeding, no purpura, no LAD FMR H&P: Results - Labs Result Diagrams: 10/23/17 13:10 10/23/17 13:10 Lab results: WBC 14.0 thou/uL (4.8-10.8) H 10/23/17 13:10 Hgb 11.3 g/dL (12.0-16.0) L 10/23/17 13:10 Hct 31.8 % (36.0-47.0) L 10/23/17 13:10 MCV 112.0 fl (81.0-99.0) H 10/23/17 13:10 Plt Count 119 thou/uL (130-400) L 10/23/17 13:10 Neutrophils % 85.4 % (42.0-75.0) H 10/23/17 13:10 Sodium 130 mmol/L (136-145) L 10/23/17 13:10 Potassium 3.7 mmol/L (3.5-5.1) 10/23/17 13:10 Chloride 92 mmol/L (98-107) L 10/23/17 13:10 Carbon Dioxide 23 mmol/L (23-31) 10/23/17 13:10 BUN 31 mg/dL (9.8-20.1) H 10/23/17 13:10 Creatinine 5.91 mg/dL (0.6-1.1) H 10/23/17 13:10 Glucose 114 mg/dL (83-110) H 10/23/17 13:10 Lactic Acid 1.2 mmol/L (0.5-2.2) 10/23/17 18:43 Calcium 8.9 mg/dL (7.8-10.44) 10/23/17 13:10 Total Bilirubin 1.9 mg/dL (0.2-1.2) H 10/23/17 13:10 AST 25 U/L (5-34) 10/23/17 13:10 ALT 18 U/L (8-55) 10/23/17 13:10 Alkaline Phosphatase 202 U/L (40-150) H 10/23/17 13:10 Creatine Kinase 71 U/L (29-168) 10/23/17 13:10 CK-MB (CK-2) 3.6 ng/mL (0-6.6) 10/23/17 13:10 Serum Total Protein 6.0 g/dL (6.0-8.3) 10/23/17 13:10 Albumin 3.0 g/dL (3.4-4.8) L 10/23/17 13:10 - EKG Interpretation EKG: Paced rhythm, otherwise normal - Radiology Interpretation Chest x-ray Status: report reviewed by me (Stable exam from prior) FMR H&P: A/P - Problem List (1) Sepsis Current Visit: Yes Status: Acute Code(s): A41.9 - SEPSIS, UNSPECIFIED ORGANISM (2) CAP (community acquired pneumonia) Current Visit: No Status: Acute Code(s): J18.9 - PNEUMONIA, UNSPECIFIED ORGANISM (3) Elevated troponin I level Current Visit: Yes Status: Acute Code(s): R74.8 - ABNORMAL LEVELS OF OTHER SERUM ENZYMES (4) ESRD (end stage renal disease) on dialysis Current Visit: No Status: Acute Code(s): N18.6 - END STAGE RENAL DISEASE; Z99.2 - DEPENDENCE ON RENAL DIALYSIS (5) Aortic stenosis Current Visit: No Status: Chronic Code(s): Q25.3 - SUPRAVALVULAR AORTIC STENOSIS (6) COPD (chronic obstructive pulmonary disease) Current Visit: No Status: Chronic (7) HTN (hypertension) Current Visit: No Status: Chronic Code(s): I10 - ESSENTIAL (PRIMARY) HYPERTENSION - Plan 1) Sepsis 2/2 cap. Will continue treatment with broad spectrum abx. Vanc to be dosed with PD. Zosyn 2.25 q8hr. Had elevated WBC and hypotension at outside ED. 2) CAP. Procalcitonin 3.17. Cont IV broad spectrum abx. 3. Elevated troponins. This is likely 2/2 demand ischemia, troponins have trended down and pt is not complaining of any chest pain. EKG w/o changes. Therapeutic lovenox given in outside ED, will hold. Given pts , more susceptible to hypoperfusion injury and ESRD likely worsening elevated troponins. 4. ESRD on PD. Dr. Keita consulted today to set up PD overnight. 5. HFpEF Home meds 6. Aortic stenosis, severe. Continue outpt mgmt. 7. HTN. Home meds as needed. Initially low. 8. COPD. Home meds. Duonebs prn. Does not appear in acute exacerbation. No hypoxia. 9. Paroxysmal A. fib. has been off anticoagulation. Disposition/LOS: stable, >/= 2 days FMR H&P: Upper Level - Pertinent history 72 yo CF with PMHx ESRD on PD, dCHF, severe aortic stenosis presented to outside ED c/o weakness and cough. Pt had 1 wk dry cough, SOB, and weakness. Pt endorses worsening of her symptoms including inability to walk from her bedroom to the kitchen today due to SOB and feeling weak. Denies any chest pain. No N/V/ D. Pt had fever 101.4 in outside ED. She states no fever all week until today ( checks daily). Hx ESRD on PD. Still makes some urine and taken off binders recently due to improvement with PD. Has one semi-functioning kidney. Was hypotensive in outside ED along with fever and elev WBC so treated as sepsis and transferred to [facility]. Also had elevated trop with concern for NSTEMI so given therapeutic lovenox. She currently feels much better. Admitting to telemetry. - Pertinent findings Gen: alert, NAD HEENT: MMM CV: 3/6 systolic murmur loudest at RUSB, RRR Lungs: coarse bibasilar rales, scattered wheezing bilaterally, no rhonchi, mild decreased air movement bilaterally Abd: NT/ND, PD cath in LLQ, no guarding/rebound Ext: MAEW, no edema Psych: short and outside production inspector memory appropriate; answers questions appropriately - Plan Date/Time: 10/23/172126 1. Sepsis 2/2 PNA. Fever, elev WBC, and hypotension in outside ED. Pt responded to initial fluids. Gentle fluids currently 2/2 ESRD. IV abx initiated. Lactate neg. Procalcitonin 3.17. Admit to telemetry. 2. CAP. Continue empiric tx with broad spectrum. Already more stable appearing with fluids. Avoid azithromycin for current qtc prolongation. Pt has fluoroquinolone allergy. Procalcitonin 3.17. Lactate normal. CXR shows no obvious consolidations. Coarse breath sounds in both bases. [place] to have LLL PNA by outside ED. 3. Elevated troponins. Pt has ESRD but trops higher than her typical baseline. Due to lack of chest pain, pt likely had demand ischemia event from hypotension. Given therapeutic lovenox in outside ED. Will hold currently. Likely fine due to nominal renal function but discuss whether heparin would be better choice if need restarted. Monitor for chest pain. EKG shows paced rhythm with elevated QTc 500. Last cath 16 showing <50% stenosis in large vessels. Continue medical mgmt.. 4. ESRD on PD. Dr. Keita consulted today to set up PD overnight. He requested 500 mls of additional fluid. Electrolyte changes typical of ESRD noted. 5. HFpEF. Last ECHO showed EF 45-50% with severe aortic stenosis. Continue home meds. No fluid overload. 6. Aortic stenosis, severe. Continue outpt mgmt. 7. HTN. Home meds as needed. Initially low. 8. COPD. Home meds. Duonebs prn. Does not appear in acute exacerbation. No hypoxia. 9. Paroxysmal A. fib. Pt states off anticoagulants since May but multiple reasons not yet restarted. Says plans to f/u with Dr. Casey about this in future. Currently NSR. I, Real Pizano, have evaluated this patient and agree with findings/plan as outlined by internet manager resident. Pertinent changes/additions are listed here.
[2017-10-23] MEDS ORDERED: HYDROcodone/Acetaminophen 5/325 mg Tablet PO PRN ×2 (22:48→22:49)
[2017-10-23] MEDS: Benzonatate 100 MG CAP PO PRN (23:54)
[2017-10-24] MEDS ORDERED: HYDROcodone/Acetaminophen 5/325 mg Tablet PO PRN ×3 (01:01→10:33)
--- NOTE | 2017-10-24 01:05 | PDOC.EVN ---
Event Note - Event Note Event Note: I personally evaluated the patient and discussed the management with Dr. Stafford/ Michael Pizano on 10/23/17 I agree with the History, Examination, Assessment and Plan documented above with any addition or exceptions noted below-Briefly this is a 72 yo woman with h /o ESRD on PD, COPD, hypothyroidism, paroxysmal A-fib, HTN, aortic stenosis presented with a 1 week h/o dry hacky cough, and increasing SOB, Had fever today. Decreased appetite for last week. Family also reports some confusion. PMH/PSH/Meds/ All/SH/ROS reviewed and agree with resident's documentation. T98.9 P90 BP 116/64 RR22 O2 sat = 92% Exam repeated by me and agree with resident's findings. Labs: WBC 14.0 Hgb= 11.3 Hct=31.8 Teq=630 trop 0.459/ 0.401/0.393 Dn=546 K=3.7 BUN=31 Cr=5.91 CXR- stable; blunting of right costophrenic angle. A/P: 1) Possible early pneumonia- continue vanc and zosyn. Continue O2 and wean as tolerated. 2) ESRD- continue PD; nephrology consulted.
[2017-10-24] MEDS ORDERED: Vancomycin HCl 0.75 GM in Sodium Chloride 0.9% 250 ML 300 ML IVPB SCH ×2 (02:00→09:00)
[2017-10-24] MEDS ORDERED: Vancomycin Sliding Scale 1 EACH FS ONE (02:15)
[2017-10-24] MEDS ORDERED: Vancomycin HCl 750 MG in Sodium Chloride 0.9% 250 ML 250 ML IVPB SCH (02:15)
[2017-10-24] MEDS ORDERED: Vancomycin HCl 1 GM in Premix Bag 1 BAG IVPB SCH (02:15)
[2017-10-24] MEDS ORDERED: Vancomycin HCl 250 MG in Sodium Chloride 0.9% 100 ML IVPB SCH (02:15)
[2017-10-24] MEDS ORDERED: HOLD VANCOMYCIN FOR LEVEL >20 FS SCH (02:15)
[2017-10-24] MEDS ORDERED: Vancomycin HCl 500 MG in Sodium Chloride 0.9% 100 ML IVPB SCH (02:15)
[2017-10-24] MEDS: Piperacillin/Tazobactam 2.25 GM in Sodium Chloride 0.9% 100 ML IVPB SCH ×3 (02:50→18:43)
[2017-10-24] MEDS ORDERED: Piperacillin/Tazobactam 2.25 GM in Sodium Chloride 0.9% 100 ML IVPB SCH (06:00)
[2017-10-24] MEDS: Levothyroxine Sodium 88 MCG TAB PO SCH (06:10)
--- NOTE | 2017-10-24 06:20 | PDOC.FM ---
- Subjective Subjective: Concepcion Hayes seen at bedside this morning. She is feeling better than she was at admission. States that she had a good night last night. She was able to get some rest, feels like her weakness is improving. She denies any fever, chest pain, dyspnea over night. - Objective MAR Reviewed: Yes Vital Signs & Weight: Vital Signs (12 hours) Temp Pulse Resp BP Pulse Ox 10/24/17 03:55 97.5 F L 80 17 119/57 L 100 10/24/17 00:00 98.1 F 77 15 113/47 L 98 10/23/17 20:00 98.1 F 77 15 116/64 92 L 10/23/17 19:52 96 Weight Weight 50.077 kg I&O: 10/22/17 10/23/17 10/24/17 06:59 06:59 06:59 Intake Total 0 Output Total 0 Balance 0 Result Diagrams: 10/23/17 13:10 10/23/17 13:10 <Yasir Cardenas - Last Filed: 10/24/17 08:18> - Objective Vital Signs & Weight: Vital Signs (12 hours) Temp Pulse Resp BP Pulse Ox 10/24/17 09:13 97.8 F 18 101/55 L 100 10/24/17 03:55 97.5 F L 80 17 119/57 L 100 10/24/17 00:00 98.1 F 77 15 113/47 L 98 Weight Weight 49.895 kg I&O: 10/23/17 10/24/17 10/25/17 06:59 06:59 06:59 Intake Total 480 Output Total 0 Balance 480 Result Diagrams: 10/23/17 13:10 10/23/17 13:10 <Azar Sanders - Last Filed: 10/24/17 10:57> Phys Exam - Physical Examination Constitutional: NAD HEENT: moist MMs, sclera anicteric Neck: no JVD, supple, full ROM Respiratory: no wheezing, no rales, no rhonchi, clear to auscultation bilateral Cardiovascular: RRR, no significant murmur Gastrointestinal: soft, non-tender, no distention Musculoskeletal: no edema, pulses present Neurological: non-focal, normal sensation, moves all 4 limbs Psychiatric: normal affect, A&O x 3 Skin: no rash, normal turgor <Yasir Cardenas - Last Filed: 10/24/17 08:18> Dx/Plan (1) Elevated troponin I level Code(s): R74.8 - ABNORMAL LEVELS OF OTHER SERUM ENZYMES Status: Acute (2) Sepsis Code(s): A41.9 - SEPSIS, UNSPECIFIED ORGANISM Status: Acute (3) Atrial fibrillation with rapid ventricular response Code(s): I48.91 - UNSPECIFIED ATRIAL FIBRILLATION Status: Acute (4) CAP (community acquired pneumonia) Code(s): J18.9 - PNEUMONIA, UNSPECIFIED ORGANISM Status: Acute (5) ESRD (end stage renal disease) on dialysis Code(s): N18.6 - END STAGE RENAL DISEASE; Z99.2 - DEPENDENCE ON RENAL DIALYSIS Status: Acute (6) CAD (coronary artery disease) Code(s): I25.10 - ATHSCL HEART DISEASE OF [place] CORONARY ARTERY W/O ANG PCTRS Status: Chronic - Plan Plan: (1) Sepsis 2/2 cap-resolved - Procalcitonin 3.17. Elevated WBC and hypotension at outside ED, responded well to IVFs - Continue IV vanc and zosyn today, consider de-escalating today.Vanc dosed with PD. (2) CAP. - Procalcitonin 3.17. Cont IV broad spectrum abx. (3) Elevated troponins - Likely 2/2 demand ischemia, troponins have trended down and pt is not complaining of any chest pain. - EKG w/o changes. - Therapeutic lovenox given in outside ED, will hold. - Given pts , more susceptible to hypoperfusion injury and ESRD likely worsening elevated troponins. (4) ESRD on PD - Dr. Keita consulted today to set up PD overnight. (5) HFpEF - Continue home meds (6) Aortic stenosis, severe. - Continue outpt mgmt. (7) HTN. - Home meds as needed. Initially low. (8) COPD. -Home meds. Duonebs prn. Does not appear in acute exacerbation. No hypoxia. (9) Paroxysmal A. fib - has been off anticoagulation - pt only wanted gordo to make decision about anticoagulation <Yasir Cardenas - Last Filed: 10/24/17 08:18> Attending Addendum - Attending Addendum Date/Time: 10/24/17 1054 I personally evaluated the patient and discussed the management with Dr. Cardenas. I agree with the History, Examination, Assessment and Plan documented above with any addition or exceptions noted below. This is a patient very well known to me. She is very brittle with her host of medical conditions. Admitted with acute on chronic hypoxia, as well as fever, increased WBC with left shift, and cough. She is currently being treated for CAP , and due to her comorbid conditions, we would have concern for a drug resistant bacterial infection. Therefore, will continue Vanc and Zosyn for now. PCT elevated and will trend, though part of elevation likely 2/2 her ESRD based on conflicting literature. She does develop fairly profound hypoxia when in conversation, but this is not a new thing for her. She reprots feeling well and denies any shortness of breath. Will need to be very careful with her fluid balance as small derangements in homeostasis tend to push her over the edge and she remains in the hospital for a prolonged course. Continue PD at night per Nephro. Anticipate several days hospitalization. <Azar Sanders R - Last Filed: 10/24/17 10:57>
[2017-10-24] MEDS ORDERED: Methotrexate Sodium 2.5 MG TAB PO SCH (09:00)
[2017-10-24] MEDS ORDERED: Non-Formulary Item 1 EACH (Budesonide-Formoterol [Symbicort 160-4.5] 2 INHALER) PO SCH (09:00)
[2017-10-24] MEDS: Potassium Chloride 20 MEQ TAB PO SCH (09:21)
[2017-10-24] MEDS: Sevelamer Carbonate 800 MG TAB PO SCH ×3 (09:21→17:09)
[2017-10-24] MEDS: Folic Acid 1 MG TAB PO SCH (09:22)
[2017-10-24] MEDS: Benzonatate 100 MG CAP PO PRN ×2 (10:19→18:42)
[2017-10-24 10:35] LABS: Vancomycin, Random 15.7 ug/mL (See Comment)
[2017-10-24] MEDS: Mometasone/Formoterol 120 PUFF INHALER INH SCH ×2 (11:18→20:30)
[2017-10-24 11:47] LABS: AST (SGOT) 25 U/L (5-34); Bilirubin, Total 1.6 mg/dL (0.2-1.2); Calcium 8.1 mg/dL (7.8-10.44); Chloride 95 mmol/L (98-107); Potassium 3.4 mmol/L (3.5-5.1); Sodium 132 mmol/L (136-145)
[2017-10-24 12:06] LABS: Anion Gap 23 mmol/L (10-20); Carbon Dioxide 18 mmol/L (23-31)
[2017-10-24 12:27] LABS: Hemoglobin 11.3 g/dL (12.0-16.0); Mean Corpuscular HGB CONC 34.4 g/dL (32.0-36.0); Mean Corpuscular Hemoglobin 40.3 pg (27.0-31.0); Mean Platelet Volume 10.5 fL (7.4-10.4); Platelet Count 101 thou/uL (130-400); RBC Distribution Width 17.9 % (11.5-14.5); Red Blood Cell (RBC) Count 2.79 mill/uL (4.20-5.40); White Blood Cell (WBC) Count 12.6 thou/uL (4.8-10.8)
[2017-10-24 12:28] LABS: Band 48 % (5-11); Lymphocytes 4 % (21-51); Monocytes 4 % (0-10); Neutrophil 40 % (42-75); Reactive Lymphocytes 4 % (0-10)
[2017-10-24 13:13] LABS: Albumin 2.7 g/dL (3.4-4.8)
[2017-10-24 13:16] LABS: Globulin 2.9 g/dL (2.4-3.5); Glucose 97 mg/dL (83-110); Protein, Total 5.6 g/dL (6.0-8.3)
[2017-10-24 13:18] LABS: Alkaline Phosphatase 200 U/L (40-150)
[2017-10-24 13:19] LABS: Calc. Creatinine Clearance 7 mL/min (70-130); Estimated GFR-MDRD 7
[2017-10-24 13:20] LABS: BUN (Urea Nitrogen) 31 mg/dL (9.8-20.1)
[2017-10-24 13:22] LABS: ALT (SGPT) 17 U/L (8-55)
--- NOTE | 2017-10-24 16:29 | CON ---
DATE OF CONSULTATION: 10/24/2017 NEPHROLOGY CONSULT NOTE CONSULTING PHYSICIAN: Miladys Arellano M.D. REASON FOR CONSULT: End-stage renal disease evaluation and care. REASON FOR ADMISSION: Dry cough, fever, and sore throat. HISTORY OF PRESENT ILLNESS: A 72-year-old female with history of CHF, end-stage renal disease, hyper tension, COPD, who came to the hospital with above complaints. Patient got better with dialysis terry ght and lab analyst consult for maintenance peritoneal dialysis. The patient is feeling slightly be tter. She still has hoarse voice. No nausea, vomiting, no abdominal pain, no shortness of breath re ported. She had a peritoneal dialysis last night and tolerated well. PAST MEDICAL HISTORY: Positive for end-stage renal disease, CHF, aortic stenosis, hypertension, COPD , psoriasis. PAST SURGICAL HISTORY: Pericardial window, AV fistula placement, PD catheter, AV tavo ablation, car diac catheterization. HOME MEDICATIONS: Levothyroxine, Epogen, methotrexate, Symbicort, Folvite, Renvela, hydrocodone, and potassium chloride. ALLERGIES: CIPROFLOXACIN. SOCIAL HISTORY: She smoked 1 pack per day, quit 3 years ago. No alcohol or drug abuse. REVIEW OF SYSTEMS: The following complete review of systems was negative, unless otherwise mentioned in the HPI or below: Constitutional: Weight loss or gain, ability to conduct usual activities. Sk in: Rash, itching. Eyes: Double vision, pain. ENT/Mouth: Nose bleeding, neck stiffness, pain, te nderness. Cardiovascular: Palpitations, dyspnea on exertion, orthopnea. Respiratory: Shortness of breath, wheezing, cough, hemoptysis, fever or night sweats. Gastrointestinal: Poor appetite, abdom inal pain, heartburn, nausea, vomiting, constipation, or diarrhea. Genitourinary: Urgency, frequenc y, dysuria, nocturia. Musculoskeletal: Pain, swelling. Neurologic/Psychiatric: Anxiety, depressio n. Allergy/Immunologic: Skin rash, bleeding tendency. PHYSICAL EXAMINATION: GENERAL: This is a well-built female in no apparent distress. VITAL SIGNS: Temperature 97.8, pulse 80, respiratory 18, blood pressure 101/55. HEENT: Atraumatic, normocephalic. Oral mucosa is moist. NECK: Supple, no masses. CARDIOVASCULAR: S1, S2 heard. Rate and rhythm regular. RESPIRATORY: Clear. ABDOMEN: Soft. MUSCULOSKELETAL: 1+ edema. DERMATOLOGIC: No rash. NEUROLOGIC: Alert, awake. PSYCHIATRIC: Mood and affect normal. LABORATORY DATA: Hemoglobin is 11.3, potassium is 3.7, BUN 31, creatinine is 5.9. ASSESSMENT AND PLAN: 1. End-stage renal disease. We will continue on peritoneal dialysis as tolerated. 2. Edema, controlled. 3. Hypertension, stable. 4. Anemia. Monitor hemoglobin. 5. Overall tolerating PD well. We will continue on peritoneal dialysis as tolerated.
[2017-10-24 18:05] LABS: Legionella Urinary Ag Negative (Negative); Strep pneumo Urine Ag NEGATIVE (NEGATIVE)
[2017-10-25] MEDS: Piperacillin/Tazobactam 2.25 GM in Sodium Chloride 0.9% 100 ML IVPB SCH ×3 (03:04→17:19)
[2017-10-25] MEDS: HYDROcodone/Acetaminophen 5/325 mg Tablet PO PRN ×2 (03:12→23:05)
[2017-10-25 05:24] LABS: #Eosinphils 0.2 thou/uL (0.0-0.7); #Lymphocytes 0.8 thou/uL (1.20-3.40); #Monocytes 0.3 thou/uL (0.11-0.59); #Neutrophils 8.5 thou/uL (1.40-6.50); %Basophils 0.2 % (0.0-1.0); %Eosinophils 1.9 % (0.0-10.0); %Lymphocytes 7.7 % (21.0-51.0); %Monocytes 2.9 % (0.0-10.0); %Neutrophils 87.3 % (42.0-75.0); Hemoglobin 9.6 g/dL (12.0-16.0); Mean Corpuscular HGB CONC 36.2 g/dL (32.0-36.0); Mean Platelet Volume 10.6 fL (7.4-10.4); Platelet Count 88 thou/uL (130-400); RBC Distribution Width 18.3 % (11.5-14.5); Red Blood Cell (RBC) Count 2.28 mill/uL (4.20-5.40); White Blood Cell (WBC) Count 9.8 thou/uL (4.8-10.8)
[2017-10-25 05:26] LABS: ALT (SGPT) 14 U/L (8-55); AST (SGOT) 19 U/L (5-34); Albumin 2.1 g/dL (3.4-4.8); Alkaline Phosphatase 155 U/L (40-150); Anion Gap 14 mmol/L (10-20); BUN (Urea Nitrogen) 31 mg/dL (9.8-20.1); Bilirubin, Total 1.3 mg/dL (0.2-1.2); Calc. Creatinine Clearance 7 mL/min (70-130); Calcium 7.7 mg/dL (7.8-10.44); Carbon Dioxide 26 mmol/L (23-31); Chloride 96 mmol/L (98-107); Estimated GFR-MDRD 7; Globulin 2.5 g/dL (2.4-3.5); Glucose 104 mg/dL (83-110); Potassium 3.4 mmol/L (3.5-5.1); Protein, Total 4.6 g/dL (6.0-8.3); Sodium 133 mmol/L (136-145)
--- NOTE | 2017-10-25 06:12 | PDOC.FM ---
- Subjective Subjective: Concepcion Hayes seen at bedside this morning. She is doing well this morning. States that she feels better than yesterday and she had a good night last night. There were no acute events overnight. Denies fever, chills, chest pain , dyspnea, n/v. - Objective MAR Reviewed: Yes Vital Signs & Weight: Vital Signs (12 hours) Temp Pulse Resp BP BP Pulse Ox 10/25/17 04:00 98.7 F 78 20 100/52 L 100 10/25/17 00:00 98.4 F 81 16 93/54 L 95 10/24/17 20:30 84 14 98 10/24/17 20:00 99.1 F 84 21 H 95/64 94 L Weight Weight 49.895 kg I&O: 10/23/17 10/24/17 10/25/17 06:59 06:59 06:59 Intake Total 480 908 Output Total 0 1095 Balance 480 -187 Result Diagrams: 10/25/17 04:35 10/25/17 04:35 Phys Exam - Physical Examination Constitutional: NAD HEENT: moist MMs, sclera anicteric Neck: no JVD, supple, full ROM decreased rales and rhonchi compared to yesterday Cardiovascular: RRR, no significant murmur Gastrointestinal: soft, non-tender, no distention Musculoskeletal: no edema, pulses present Neurological: non-focal, normal sensation, moves all 4 limbs Psychiatric: normal affect, A&O x 3 Skin: no rash, normal turgor Dx/Plan (1) Elevated troponin I level Code(s): R74.8 - ABNORMAL LEVELS OF OTHER SERUM ENZYMES Status: Acute (2) Sepsis Code(s): A41.9 - SEPSIS, UNSPECIFIED ORGANISM Status: Acute (3) Atrial fibrillation with rapid ventricular response Code(s): I48.91 - UNSPECIFIED ATRIAL FIBRILLATION Status: Acute (4) CAP (community acquired pneumonia) Code(s): J18.9 - PNEUMONIA, UNSPECIFIED ORGANISM Status: Acute (5) ESRD (end stage renal disease) on dialysis Code(s): N18.6 - END STAGE RENAL DISEASE; Z99.2 - DEPENDENCE ON RENAL DIALYSIS Status: Acute (6) CAD (coronary artery disease) Code(s): I25.10 - ATHSCL HEART DISEASE OF [place] CORONARY ARTERY W/O ANG PCTRS Status: Chronic - Plan Plan: (1) Sepsis 2/2 cap-resolved - Procalcitonin 3.17. Elevated WBC and hypotension at outside ED, responded well to IVFs - Continue IV vanc and zosyn today, consider de-escalating today. Vanc dosed with PD. (2) CAP. - Procalcitonin 3.17, up to 4.17 today, could be 2/2 ESRD - Cont IV broad spectrum abx. - prn cough medicine (3) Elevated troponins - Likely 2/2 demand ischemia, troponins have trended down and pt is not complaining of any chest pain. - EKG w/o changes. - Therapeutic lovenox given in outside ED, will hold. - Given pts , more susceptible to hypoperfusion injury and ESRD likely worsening elevated troponins. (4) ESRD on PD - Dr. Keita consulted today to set up PD overnight. (5) HFpEF - Continue home meds (6) Aortic stenosis, severe. - Continue outpt mgmt. (7) HTN. - Home meds as needed. Initially low. (8) COPD. -Home meds. Duonebs prn. Does not appear in acute exacerbation. No hypoxia. (9) Paroxysmal A. fib - has been off anticoagulation - pt only wanted gordo to make decision about anticoagulation
[2017-10-25] MEDS: Benzonatate 100 MG CAP PO PRN ×2 (06:17→17:21)
[2017-10-25] MEDS: Levothyroxine Sodium 88 MCG TAB PO SCH (06:17)
[2017-10-25] MEDS: Mometasone/Formoterol 120 PUFF INHALER INH SCH ×2 (07:42→19:47)
[2017-10-25] MEDS: Folic Acid 1 MG TAB PO SCH (08:23)
[2017-10-25] MEDS: Potassium Chloride 20 MEQ TAB PO SCH (08:23)
[2017-10-25] MEDS: Sevelamer Carbonate 800 MG TAB PO SCH ×3 (08:23→16:29)
[2017-10-25 09:34] LABS: Vancomycin, Random 14.6 ug/mL (See Comment)
--- NOTE | 2017-10-25 11:29 | PRG ---
DATE OF SERVICE: 10/25/2017 SUBJECTIVE: A 72-year-old female being seen for end-stage renal disease. Patient denies any nausea, vomiting, chest pain. PHYSICAL EXAMINATION: GENERAL: Patient is awake, alert. VITAL SIGNS: Afebrile, pulse 80, breathing 16, blood pressure 100/52. HEAD/NECK: Normocephalic. Atraumatic. EYES: EOMI. No deformity. EARS: Clear. No ulcers. NOSE: Intact. No lesions. MOUTH: Clear. No discharge. THROAT: Clear. No exudate. LUNGS: Clear. No crackles. CARDIAC: S1, S2. No rub. ABDOMEN: Benign. BS+. GENITALIA/RECTUM: Stein absent. BACK/EXTREMITIES: Edema 0+ Ulcer- NEUROLOGICAL: Alert and motor intact. SKIN: Rash- Bruise- LYMPHATICS: Edema- Ulcer- ASSESSMENT AND RECOMMENDATIONS: 1. Stage 6 chronic kidney disease. Continue hemodialysis. 2. Hypertension, stable. 3. Anemia, stable. 4. Medications based on glomerular filtration rate are appropriate.
[2017-10-25] MEDS: Doxycycline 100 MG CAP PO SCH (20:25)
[2017-10-26 05:30] LABS: #Eosinphils 0.3 thou/uL (0.0-0.7); #Lymphocytes 0.8 thou/uL (1.20-3.40); #Monocytes 0.2 thou/uL (0.11-0.59); #Neutrophils 6.5 thou/uL (1.40-6.50); %Basophils 0.3 % (0.0-1.0); %Eosinophils 3.4 % (0.0-10.0); %Lymphocytes 10.3 % (21.0-51.0); %Neutrophils 82.9 % (42.0-75.0); Mean Corpuscular HGB CONC 33.6 g/dL (32.0-36.0); Mean Corpuscular Hemoglobin 39.2 pg (27.0-31.0); Mean Platelet Volume 11.5 fL (7.4-10.4); Platelet Count 37 thou/uL (130-400); RBC Distribution Width 17.5 % (11.5-14.5); Red Blood Cell (RBC) Count 2.56 mill/uL (4.20-5.40); White Blood Cell (WBC) Count 7.9 thou/uL (4.8-10.8)
[2017-10-26 05:43] LABS: ALT (SGPT) 18 U/L (8-55); AST (SGOT) 36 U/L (5-34); Albumin 2.1 g/dL (3.4-4.8); Alkaline Phosphatase 170 U/L (40-150); Anion Gap 13 mmol/L (10-20); BUN (Urea Nitrogen) 35 mg/dL (9.8-20.1); Bilirubin, Total 1.1 mg/dL (0.2-1.2); Calc. Creatinine Clearance 7 mL/min (70-130); Calcium 7.6 mg/dL (7.8-10.44); Carbon Dioxide 25 mmol/L (23-31); Chloride 97 mmol/L (98-107); Estimated GFR-MDRD 7; Globulin 3.2 g/dL (2.4-3.5); Glucose 107 mg/dL (83-110); Potassium 4.3 mmol/L (3.5-5.1); Protein, Total 5.3 g/dL (6.0-8.3); Sodium 131 mmol/L (136-145)
[2017-10-26] MEDS: Levothyroxine Sodium 88 MCG TAB PO SCH (05:57)
--- NOTE | 2017-10-26 06:06 | PDOC.FM ---
- Subjective Subjective: Concepcion Hayes seen at bedside this morning. She has no complaints, there were no acute events overnight. She was able to get good rest. She was transitioned to PO antibiotics last night. She denies fever, chest pain, dyspnea, n/v, abnormal bruising or bleeding. - Objective MAR Reviewed: Yes Vital Signs & Weight: Vital Signs (12 hours) Temp Pulse Resp BP BP Pulse Ox 10/26/17 00:00 98.5 F 80 18 150/79 H 10/25/17 23:06 98.5 F 80 20 150/79 H 10/25/17 20:00 99.3 F 86 20 102/66 94 L 10/25/17 19:55 98.5 F 80 20 94 L 10/25/17 19:47 82 18 94 L Weight Weight 47.4 kg I&O: 10/24/17 10/25/17 10/26/17 06:59 06:59 06:59 Intake Total 480 1218 920 Output Total 0 1095 50 Balance 480 123 870 Result Diagrams: 10/26/17 04:36 10/26/17 04:36 Phys Exam - Physical Examination Constitutional: NAD HEENT: moist MMs, sclera anicteric, oral pharynx no lesions Neck: no JVD, supple, full ROM minimal rhonchi and wheezes, improved from prev exam Cardiovascular: RRR 3/6 blowing systolic murmur-chronic Gastrointestinal: soft, non-tender, no distention Musculoskeletal: no edema, pulses present Neurological: non-focal, normal sensation, moves all 4 limbs Psychiatric: normal affect, A&O x 3 Skin: no rash, normal turgor Deviation from normal: no new abnormal purpura or petechiae Dx/Plan (1) Elevated troponin I level Code(s): R74.8 - ABNORMAL LEVELS OF OTHER SERUM ENZYMES Status: Acute (2) Sepsis Code(s): A41.9 - SEPSIS, UNSPECIFIED ORGANISM Status: Acute (3) Atrial fibrillation with rapid ventricular response Code(s): I48.91 - UNSPECIFIED ATRIAL FIBRILLATION Status: Acute (4) CAP (community acquired pneumonia) Code(s): J18.9 - PNEUMONIA, UNSPECIFIED ORGANISM Status: Acute (5) ESRD (end stage renal disease) on dialysis Code(s): N18.6 - END STAGE RENAL DISEASE; Z99.2 - DEPENDENCE ON RENAL DIALYSIS Status: Acute (6) CAD (coronary artery disease) Code(s): I25.10 - ATHSCL HEART DISEASE OF [place] CORONARY ARTERY W/O ANG PCTRS Status: Chronic - Plan Plan: (1) Sepsis 2/2 cap-resolved - Procalcitonin 3.17. Elevated WBC and hypotension at outside ED, responded well to IVFs - IV vanc and zosyn, transitioned to PO on 10/26. Vanc was dosed with PD. - Started doxycycline last night (2) CAP. - Procalcitonin 3.17, up to 4.17 today, could be 2/2 ESRD - Continue abx - prn cough medicine (3) Elevated troponins - Likely 2/2 demand ischemia, troponins have trended down and pt is not complaining of any chest pain. - EKG w/o changes. - Therapeutic lovenox given in outside ED, will hold. - Given pts , more susceptible to hypoperfusion injury and ESRD likely worsening elevated troponins. (4) ESRD on PD - Dr. Keita consulted today to set up PD overnight. (5) HFpEF - Continue home meds (6) Aortic stenosis, severe. - Continue outpt mgmt. (7) HTN. - Home meds as needed. Initially low. (8) COPD. -Home meds. Duonebs prn. Does not appear in acute exacerbation. No hypoxia. (9) Paroxysmal A. fib - has been off anticoagulation - pt only wanted gordo to make decision about anticoagulation (10) Thrombocytopenia: - Has been thrombocytopenic in the past - Will recheck value today, cont to monitor - no new bruising or bleeding
[2017-10-26] MEDS: Sevelamer Carbonate 800 MG TAB PO SCH ×2 (08:43→11:31)
[2017-10-26] MEDS: Potassium Chloride 20 MEQ TAB PO SCH (08:44)
[2017-10-26] MEDS: Doxycycline 100 MG CAP PO SCH (08:44)
[2017-10-26] MEDS: Folic Acid 1 MG TAB PO SCH (08:44)
[2017-10-26] MEDS: Mometasone/Formoterol 120 PUFF INHALER INH SCH (09:17)
[2017-10-26 11:25] VITALS: BP 113/53; TEMP 98.5
--- NOTE | 2017-10-26 13:05 | ADD-PRG ---
ADDENDUM DATE OF SERVICE: 10/25/2017 Please see the note from Dr. Cardenas, for which I concurred. The patient was seen and evaluated, soledad paulino and discussed with the residents by bedside, also with son-in-law who is in the room. Basically, the patient came in with community-acquired pneumonia and sepsis. She is an unfortunate and yet u nky 72-year-old with end-stage renal disease, congestive heart failure systolic, hypertension, mares ry artery disease, who is very brittle, but has done phenomenally well since admitted 2 days ago. Cu rrently on Zosyn and vancomycin. We think we probably switch her to p.o. antibiotics and follow manny perales with same peritoneal dialysis and medications, and we will see how she responds on the p.o. antibio tics. Continue breathing treatment, etc., but right now, doing well and no other changes needed.
--- NOTE | 2017-10-26 15:12 | ADD-PRG ---
ADDENDUM DATE OF SERVICE: 10/26/2017 Please see the note from Dr. Cardenas, for which I concur. The patient was seen and evaluated, examined and discussed with the residents at bedside. Basically, doing a lot better, keeping her oxygen leve l fine as long as she wears her oxygen and breathing improved. She has been switched over to p.o. do xycycline now and is stable on that, so we will be able to discharge her on p.o. antibiotics for at l east another 5 days and continue home medications and follow up with Hematology, Nephrology, etc. and resume all her home medicines.
--- NOTE | 2017-10-26 16:16 | PRG ---
DATE OF SERVICE: 10/26/2017 SUBJECTIVE: A 72-year-old female being seen for end-stage renal disease. The patient denies any [place], vomiting or chest pain. PHYSICAL EXAMINATION: GENERAL: The patient is alert and awake. VITAL SIGNS: , blood pressure 103/60. GENERAL APPEARANCE AND MENTAL STATUS: Fair. HEAD/NECK: Normocephalic. Atraumatic. EYES: EOMI. No deformity. EARS: Clear. No ulcers. NOSE: Intact. No lesions. MOUTH: Clear. No discharge. THROAT: Clear. No exudate. LUNGS: Clear. No crackles. CARDIAC: S1, S2. No rub. ABDOMEN: Benign. BS+. GENITALIA/RECTUM: Stein absent. BACK/EXTREMITIES: Edema 0+ Ulcer- NEUROLOGICAL: Alert and motor intact. SKIN: Rash- Bruise- LYMPHATICS: Edema- Ulcer- LABORATORY DATA: Show hemoglobin 10. ASSESSMENT AND RECOMMENDATIONS: 1. Stage 6 chronic kidney disease. Continue peritoneal dialysis. 2. Hypertension, stable. 3. Anemia, stable. 4. Medication based on glomerular filtration rate appropriate.
--- NOTE | 2017-10-26 17:21 | DIS-2 ---
DATE OF ADMISSION: 10/23/2017 DATE OF DISCHARGE: 10/26/2017 RESIDENT: Yasir Cardenas MD ADMITTING ATTENDING: Dr. Alonso Padilla. DISCHARGE ATTENDING: Dr. Asif Sykes. CONSULTATIONS 1. Nephrology, 10/23/2017, Dr. Keita. 2. PT on 10/25/2017. PROCEDURES: 1. Chest x-ray, impression: Stable exam increased interstitial markings are present, blunting of the right costophrenic angle which may represent small pleural effusion or scarring, no change occurred compared to prior exam. 2. Blood culture from 10/23/2017, no growth at 48 hours. PRIMARY DIAGNOSIS: Sepsis secondary to community-acquired pneumonia. SECONDARY DIAGNOSES: 1. End-stage renal disease, on peritoneal dialysis. 2. Congestive heart failure. 3. Hypertension. 4. Coronary artery disease. 5. Chronic obstructive pulmonary disease. 6. Aortic stenosis. 7. Hypothyroidism. 8. Paroxysmal atrial fibrillation. DISCHARGE MEDICATIONS: Resume all home medications includin. Levothyroxine sodium 88 mcg p.o. q.a.m. 2. Procrit 10,000 IM. 3. Methotrexate sodium 2.5 mg p.o. q. 7 days. 4. Symbicort 160/4.5 two INH b.i.d. 5. Folic acid 1 mg p.o. daily. 6. [place] 5/500 one to two tabs p.o. q.6 hours p.r.n. 7. Potassium chloride 20 mEq p.o. q.2 days. NEW HOME MEDICATIONS: 1. Benzonatate 100 mg p.o. q.8 hours p.r.n. 2. Doxycycline 100 mg p.o. b.i.d. for 5 more days. HISTORY OF PRESENT ILLNESS AND HOSPITAL COURSE: Concepcion Hayes is a 72-year- old female with a past medical history of end-stage renal disease on peritoneal dialysis, CHF, COPD, aortic stenosis, hypertension, who presented to the ED with chief complaint of weakness, dry cough and fever for approximately 1 week that has been progressively worsening. She denied any chest pain, shortness of breath, nausea, vomiting, diarrhea, constipation. She did endorse fevers, chills, and congestion. Denied any pain or erythema around the PD site. Per the family, she was not acting her normal self and seemed to be more tired and less alert. She denied any numbness, tingling, focal weakness. In the ED, the patient received vancomycin, Zosyn and therapeutic Lovenox due to an indeterminate troponin. Initial labs are significant for white blood cell count of 14.0, 85% neutrophils, hemoglobin 11.3, hematocrit 31.8, platelets 119 , sodium 130, chloride 92, BUN 31, creatinine 5.91, glucose of 114. EKG showed paced rhythm, otherwise normal. Chest x-ray shows stable exam. Patient was admitted for sepsis secondary to community-acquired pneumonia. Clinically, patient had findings suggestive of pneumonia. Patient was continued on IV vancomycin and Zosyn for 2 days. Vancomycin, dosed with peritoneal dialysis and patient had a procalcitonin 3.17 initially. The elevated troponins were attributed likely to either demand ischemia or end-stage renal disease. Therapeutic Lovenox was held as the patient showed no acute EKG changes and did not have any chest pain. Dr. Keita was consulted and set up peritoneal dialysis overnight. The patient's respiratory status and symptoms improved over her admission and on day and after 48 hours of IV antibiotics, patient was transitioned over to p.o. doxycycline, which she will continue for 5 more days. Patient was instructed to follow up with [facility] and her straw boss, Dr. Keita of within about 1 week. She is to otherwise resume all of her home meds. The patient was cleared for discharge on 10/26/2017. Patient instructed to follow up with PCP to also have recheck was CBC, her platelets were down to 38 on day of discharge. She is chronically low but recheck recommended to make sure it is not downtrending. DISPOSITION: Stable. The patient should do well if she continues her antibiotics and follows up with primary care provider and straw boss. DISCHARGE INSTRUCTIONS: 1. Location: Home. 2. Diet: Renal diet. 3. Activity as tolerated. 4. Follow up with straw boss and primary care provider. [facility]ENTER[facility]arcia
== END 2017-10-26 13:50 | disposition home or self-care (01) | DRG 871 ==
LOC: SCSER 12:27 → 2NO 18:11
PROVIDERS: ADMIT Emergency Medicine; ATTEND Emergency Medicine
DX: A41.9 Sepsis, unspecified organism (principal); N18.6 End stage renal disease; J18.9 Pneumonia, unspecified organism; I24.8 Other forms of acute ischemic heart disease; I13.0 Hypertensive heart and chronic kidney disease with heart failure and stage 1 through stage 4 chronic kidney disease, or unspecified chronic kidney disease; Z99.2 Dependence on renal dialysis; I50.9 Heart failure, unspecified; I25.10 Atherosclerotic heart disease of native coronary artery without angina pectoris; J44.9 Chronic obstructive pulmonary disease, unspecified; I15.0 Renovascular hypertension; I35.0 Nonrheumatic aortic (valve) stenosis; E03.9 Hypothyroidism, unspecified; I48.0 Paroxysmal atrial fibrillation; R74.8 Abnormal levels of other serum enzymes; D69.6 Thrombocytopenia, unspecified; D64.9 Anemia, unspecified; Z87.891 Personal history of nicotine dependence
CPT/HCPCS: 36415; 71046; 80053; 80202; 82550; 82553; 83605; 84145; 84484; 85025; 87040; 87899; 90945; 93005; 94640; 94664; 96365; 96367; 96372; A4216; G0257; J1650; J2543; J3370; J7050; J7620; J8610

== ENCOUNTER 2017-11-08 20:22 | Emergency (ER) | payer MEDICARE, OTHER ==
[2017-11-08 21:29] LABS: Anisocytosis MODERATE=16-30 cells (100X) (0-5/hpf); Band 2 % (5-11); Hemoglobin 11.1 g/dL (12.0-16.0); Hypochromia SLIGHT = 6-15 cells (100X) (0-5/hpf); Lymphocytes 10 % (21-51); MDiff Complete? YES; Macrocytosis MODERATE=16-30 cells (100X) (0-5/hpf); Mean Corpuscular HGB CONC 31.5 g/dL (32.0-36.0); Mean Corpuscular Hemoglobin 37.4 pg (27.0-31.0); Mean Platelet Volume 9.8 fL (7.4-10.4); Monocytes 2 % (0-10); Neutrophil 85 % (42-75); PLT Morphology Comment Appears Decreased; Platelet Count 63 thou/uL (130-400); Poikilocytosis SLIGHT = 6-15 cells (100X) (0-5/hpf); RBC Distribution Width 19.8 % (11.5-14.5); Red Blood Cell (RBC) Count 2.96 mill/uL (4.20-5.40); Target Cells SLIGHT = 2-5 cells (100X) (0-1/hpf); Tear Drops SLIGHT = 2-5 cells (100X) (0-1/hpf)
[2017-11-08 21:31] LABS: ALT (SGPT) 35 U/L (8-55); AST (SGOT) 63 U/L (5-34); Albumin 2.1 g/dL (3.4-4.8); Alkaline Phosphatase 222 U/L (40-150); Anion Gap 17 mmol/L (10-20); BUN (Urea Nitrogen) 38 mg/dL (9.8-20.1); Calc. Creatinine Clearance 0 mL/min (70-130); Calcium 7.5 mg/dL (7.8-10.44); Carbon Dioxide 23 mmol/L (23-31); Chloride 97 mmol/L (98-107); Estimated GFR-MDRD 8; Globulin 3.1 g/dL (2.4-3.5); Glucose 80 mg/dL (83-110); Lipase 14 U/L (8-78); Potassium 5.3 mmol/L (3.5-5.1); Protein, Total 5.2 g/dL (6.0-8.3); Sodium 132 mmol/L (136-145)
[2017-11-08 21:33] LABS: White Blood Cell (WBC) Count 12.4 thou/uL (4.8-10.8)
--- NOTE | 2017-11-08 21:36 | CT ---
CT ABDOMEN AND PELVIS WITHOUT IV CONTRAST: 11/08/17 Multiple axial tomograms obtained through the abdomen and pelvis without IV enhancement. INDICATIONS: Right flank pain. Abdominal pain. Nausea and vomiting. Comparison made to CT abdomen and pelvis 05/11/17. FINDINGS: The lung bases appear clear. Images through the abdomen reveal unremarkable liver, spleen and pancreas. Small amount of free fluid is seen along the liver margin. There is radiopaque material layering dependently in the gallbladder which was described on prior exam consistent with cholelithiasis. Kidneys are atrophic which was described previously. Right kidney is particularly atrophic with tiny rim of cortex on the right. No hydronephrosis. Small bowel loops are normal caliber. Appendix appears unremarkable. Diverticulosis of the left colon and sigmoid again noted. There is a small amount of free fluid in the deep pelvis. The peritoneal di alysis catheter coils within the pelvis and is in similar position to the prior study. Uterus and adn exa unremarkable. Aorta densely calcified. The aortic arteries are densely calcified including celiac artery and superior mesenteric artery. IMPRESSION: 1. Small amount of free fluid in the abdomen and pelvis with peritoneal dialysis catheter again noted. 2. Cholelithiasis again noted. 3. Atrophic kidneys stable in appearance from prior exam. 4. Diverticulosis without CT evidence of diverticulitis. 5. No evidence of acute process or significant change. POS: ROBERTO
[2017-11-08 22:01] LABS: Bilirubin Small (Negative); Blood, Urine Negative (Negative); Clarity Clear (Clear); Glucose, Urine (Dipstick) Negative (Negative); Leukocyte Negative (Negative); Nitrite Negative (Negative); Protein, Urine (Dipstick) 30 mg/dL (Neg-Trace); Urobilinogen 0.2 mg/dL (0.2-1.0); pH, Urine 5.5 (5.0-9.0)
[2017-11-08 22:05] LABS: Bacteria/HPF None Seen HPF (None Seen); Hyaline Casts/LPF 4-6 HYALINE CAST LPF (0-3 Hyaline); RBC/HPF 0-3 HPF (0-3); Squamous Epithelial 0-3 HPF (0-3); WBC/HPF 0-3 HPF (0-3)
[2017-11-08] MEDS ORDERED: Acetaminophen 325 MG TAB ONE (22:26)
== END 2017-11-08 23:00 | disposition home or self-care (01) ==
LOC: SCSER 20:22
DX: R11.2 Nausea with vomiting, unspecified (principal); E03.9 Hypothyroidism, unspecified; I11.0 Hypertensive heart disease with heart failure; I48.91 Unspecified atrial fibrillation; I50.9 Heart failure, unspecified; J44.9 Chronic obstructive pulmonary disease, unspecified; Z87.891 Personal history of nicotine dependence; Z79.899 Other long term (current) drug therapy
CPT/HCPCS: 51701; 74176; 80053; 81003; 81015; 83605; 83690; 85025; 87045; 87046; 87081; 87324; 87449; 87899; 93005; A4353

== ENCOUNTER 2017-12-04 15:14 | Outpatient (CLI) | payer MEDICARE, OTHER | END 2017-12-04 15:15 | disposition home or self-care (01) | LOC: BICRAD 15:14 | PROVIDERS: ATTEND Internal Medicine Nephrology | DX: R06.02 Shortness of breath (principal); N18.6 End stage renal disease | CPT/HCPCS: 71046 ==

== ENCOUNTER 2017-12-22 15:42 | Emergency (ER) | payer MEDICARE, OTHER | END 2017-12-22 16:55 | disposition home or self-care (01) | LOC: SCSER 15:42 | DX: L03.115 Cellulitis of right lower limb (principal); I11.0 Hypertensive heart disease with heart failure; I50.9 Heart failure, unspecified; E03.9 Hypothyroidism, unspecified; J44.9 Chronic obstructive pulmonary disease, unspecified; L40.9 Psoriasis, unspecified; I48.91 Unspecified atrial fibrillation; I35.0 Nonrheumatic aortic (valve) stenosis; Z87.891 Personal history of nicotine dependence; Z79.899 Other long term (current) drug therapy ==

== ENCOUNTER 2017-12-23 14:27 | Inpatient (IN) | payer MEDICARE, OTHER ==
[2017-12-23 15:46] LABS: Bilirubin Small (Negative); Blood, Urine Negative (Negative); Clarity CLOUDY (Clear); Glucose, Urine (Dipstick) Negative (Negative); Leukocyte Small (Negative); Nitrite Negative (Negative); Protein, Urine (Dipstick) 100 mg/dL (Neg-Trace); Specific Gravity, Urine 1.019 (1.002-1.036)
[2017-12-23 15:47] LABS: Bacteria/HPF None Seen HPF (None Seen); Squamous Epithelial 0-3 HPF (0-3)
[2017-12-23 15:49] LABS: Pathc Cast-AUWi Flag 4.07 (0-2.49)
[2017-12-23 16:02] LABS: Hyaline Casts/LPF 4-6 HYALINE CAST LPF (0-3 Hyaline); Other Casts/LPF 0-3 FINELY GRAN LPF (0-3 Hyaline)
[2017-12-23 16:05] LABS: Hemoglobin 10.3 g/dL (12.0-16.0); Mean Corpuscular HGB CONC 33.5 g/dL (32.0-36.0); Mean Corpuscular Hemoglobin 39.8 pg (27.0-31.0); Mean Platelet Volume 11.4 fL (7.4-10.4); Platelet Count 16 thou/uL (130-400); RBC Distribution Width 15.1 % (11.5-14.5); Red Blood Cell (RBC) Count 2.58 mill/uL (4.20-5.40)
[2017-12-23] MEDS ORDERED: Clindamycin/D5W 600 mg/50 ml Premix Bag ONE (16:06)
[2017-12-23 16:20] LABS: Anisocytosis SLIGHT = 6-15 cells (100X) (0-5/hpf); Band 8 % (5-11); Lymphocytes 4 % (21-51); MDiff Complete? YES; Monocytes 2 % (0-10); Neutrophil 86 % (42-75); PLT Morphology Comment Appears Decreased
[2017-12-23 16:22] LABS: ALT (SGPT) 31 U/L (8-55); AST (SGOT) 51 U/L (5-34); Albumin 2.7 g/dL (3.4-4.8); Alkaline Phosphatase 208 U/L (40-150); Anion Gap 21 mmol/L (10-20); BUN (Urea Nitrogen) 42 mg/dL (9.8-20.1); Bilirubin, Total 1.6 mg/dL (0.2-1.2); Calc. Creatinine Clearance 0 mL/min (70-130); Calcium 8.4 mg/dL (7.8-10.44); Carbon Dioxide 20 mmol/L (23-31); Chloride 99 mmol/L (98-107); Estimated GFR-MDRD 8; Globulin 3.2 g/dL (2.4-3.5); Glucose 81 mg/dL (83-110); Potassium 5.9 mmol/L (3.5-5.1); Protein, Total 5.9 g/dL (6.0-8.3); Sodium 134 mmol/L (136-145)
[2017-12-23 16:48] LABS: Troponin I 0.814 ng/mL (< 0.028)
--- NOTE | 2017-12-23 16:52 | RAD ---
SINGLE VIEW OF THE CHEST: 12/23/17 COMPARISON: 12/04/17 HISTORY: Fever. Patient has an open leg wound. COMPARISON: 10/23/17. FINDINGS: Single view of the chest shows an enlarged but stable cardiomediastinal silhouette. The pacemaker is unchanged in position. Increased interstitial markings are present. There may be a small right pleura l effusion. IMPRESSION: Cardiomegaly and small right pleural effusion. POS: [facility]
--- NOTE | 2017-12-23 17:13 | PDOC.FPRHP ---
- History of Present Illness Chief Complaint: fever, right lower leg wound History of Present Illness: Concepcion Hayes is a 72 year old F with a PMH of ESRD on PD, pAfib, HTN, CHF, COPD, Psoriasis, Hypothyroidism, Aortic Stenosis who presented to the ED with a 2 days history of right leg redness and pain. Yesterday patient went to the ER for the redness and pain and was prescribed keflex and discharged from the ED. This morning, the pain woke up with a fever of 102.5. The patient has only received two doses of keflex. Daughter also states that her symptoms have been associated with altered mental status, primarily in the form of difficulty finding words. Daughter also states that patient has scratches/wounds on her lower back. Patient denies any chest pain. States that she has been compliant with her medications and dialysis. ED Course: In the ED, patient received 1 L NS, blood and wound cultures were drawn and patient was started on IV Vancomycin and IV clindamycin. EKG in the ED showed ventricular paced rhythm with PVCs and no new findings compared to previous EKGs. K+ in the ED was 5.9 and patient was given 1 amp of calcium gluconate. - Allergies/Adverse Reactions Allergies Allergy/AdvReac Type Severity Reaction Status Date / Time ciprofloxacin [From Cipro] Allergy Intermediate BLISTERS Verified 12/23/17 20:42 adhesive Allergy Verified 12/23/17 20:42 - Home Medications Medication Instructions Recorded Confirmed Type Levothyroxine Sodium 88 mcg PO QAM 05/23/15 12/23/17 History Epoetin [Procrit] 10,000 syr IM ASDIR 09/08/15 12/23/17 History Methotrexate Sodium 1 tab PO Q7DAYS 09/08/15 12/23/17 History Budesonide-Formoterol [Symbicort 2 inhaler PO BID 10/10/16 12/23/17 History 160-4.5] Folic Acid [Folvite] 1 mg PO DAILY tab 12/14/16 12/23/17 Rx Potassium Chloride [K-Dur] 20 meq PO Q2DAYS 10/23/17 12/23/17 History Albuterol Sulfate [Ventolin Hfa] 2 puff INH PRN PRN 12/23/17 12/23/17 History Folic Acid/Vit B Comp W-C 1 tab PO DAILY 12/23/17 12/23/17 History [Nephro-Gem Tablet] Lactobacillus Acidophilus 1 capsule PO DAILY 12/23/17 12/23/17 History [Probiotic] Ondansetron HCl [Zofran] 4 mg PO PRN PRN 12/23/17 12/23/17 History - History PMHx: 1) One kidney since 2) Psoriasis 3) ESRD on PD 4) Aortic Stenosis 5) COPD 6) Congestive Heart Failure 7) HTN 8) Hypothyroidism 9) pAfib PSHx: 1) Bilateral cataracts in 2009 2) Tubal ligation 3) FATS surgery 4) Pericardial window 5) AVN ablation in 2016 6) PD catheter 7) AV fistula R arm in 2015 8) Pacemaker in 2015 9) Thoracostomy in 2014 FHx: noncontributory Social: Denies alcohol use, drug use, and is a former tobacco user, quit smoking in the past year - Review of Systems General: reports: fever/chills, weight/appetite/sleep changes, night sweats, fatigue Eyes: denies: eye pain, vision changes ENT: denies: nasal congestion, rhinorrhea Respiratory: reports: exercise intolerance. denies: cough, congestion, shortness of breath Cardiovascular: denies: chest pain, palpitation, edema, paroxysmal nocturnal dyspnea, orthopnea Gastrointestinal: denies: nausea, vomiting, diarrhea, constipation, abdominal pain, GI bleeding Genitourinary: denies: incontinence, dysuria, polyuria, discharge Skin: reports: rashes, lesions. denies: jaundice, itching Musculoskeletal: denies: pain, tenderness, stiffness, swelling, arthritis/ arthralgias Neurological: denies: numbness, syncope, seizure, weakness Psychological: denies: anxiety, depression - Vital signs BP: 109/44 HR: 81 RR: 20 Tmax: 98.4 Pox: 99% on RA Wt: 44 kg - Physical Exam Constitutional: NAD, awake, alert and oriented (difficulty finding words at times) -Constitutional: cachexic HEENT: normocephalic and atraumatic, PERRLA, EOMI, conjunctiva clear, no scleral icterus, grossly normal vision, TM's clear and intact, grossly normal hearing, normal nasal mucosa, MMM, oropharynx clear Neck: supple, FROM, trachea midline, no LAD Chest: no-tender to palpation, no lesions Heart: RRR, normal S1/S2, no murmurs/rubs/gallops, pulses present Lungs: CTAB, no respiratory distress, good air movement, no rales/rhonchi, no wheezing Abdomen: soft, bowel sounds present, no masses/distention -Abdomen: diffuse abdominal TTP, no rigidity or guarding or rebound Musculoskeletal: normal structure, normal tone, ROM grossly normal Neurological: no focal deficit, CN II-XII intact, normal sensation Skin: good turgor, capillary refill <2 seconds -Skin: erythema and boils to posterior right lower leg Heme/Lymphatic: no unusual bruising or bleeding, no purpura, no petechia Psychiatric: normal mood and affect -Psychiatric: difficulty finding words FMR H&P: Results - Labs Result Diagrams: 12/24/17 04:56 12/24/17 04:56 Lab results: WBC 1.0 thou/uL (4.8-10.8) L 12/23/17 15:44 Hgb 10.3 g/dL (12.0-16.0) L 12/23/17 15:44 Hct 30.6 % (36.0-47.0) L 12/23/17 15:44 MCV 119.0 fL (78.0-98.0) H 12/23/17 15:44 Plt Count 16 thou/uL (130-400) L* 12/23/17 15:44 Band Neuts % (Manual) 8 % (5-11) 12/23/17 15:44 Sodium 134 mmol/L (136-145) L 12/23/17 15:44 Potassium 5.9 mmol/L (3.5-5.1) H 12/23/17 15:44 Chloride 99 mmol/L (98-107) 12/23/17 15:44 Carbon Dioxide 20 mmol/L (23-31) L 12/23/17 15:44 BUN 42 mg/dL (9.8-20.1) H 12/23/17 15:44 Creatinine 5.19 mg/dL (0.6-1.1) H 12/23/17 15:44 Glucose 81 mg/dL (83-110) L 12/23/17 15:44 Lactic Acid 3.1 mmol/L (0.5-2.2) H 12/23/17 15:44 Calcium 8.4 mg/dL (7.8-10.44) 12/23/17 15:44 Total Bilirubin 1.6 mg/dL (0.2-1.2) H 12/23/17 15:44 AST 51 U/L (5-34) H 12/23/17 15:44 ALT 31 U/L (8-55) 12/23/17 15:44 Alkaline Phosphatase 208 U/L (40-150) H 12/23/17 15:44 CK-MB (CK-2) 2.0 ng/mL (0-6.6) 12/23/17 15:44 Serum Total Protein 5.9 g/dL (6.0-8.3) L 12/23/17 15:44 Albumin 2.7 g/dL (3.4-4.8) L 12/23/17 15:44 Urine Ketones Negative mg/dL (Negative) 12/23/17 15:42 Urine Blood Negative (Negative) 12/23/17 15:42 Urine Nitrite Negative (Negative) 12/23/17 15:42 Ur Leukocyte Esterase Small (Negative) H 12/23/17 15:42 Urine RBC 4-6 HPF (0-3) 12/23/17 15:42 Urine WBC 4-6 HPF (0-3) H 12/23/17 15:42 Ur Squamous Epith Cells 0-3 HPF (0-3) 12/23/17 15:42 Urine Bacteria None Seen HPF (None Seen) 12/23/17 15:42 - EKG Interpretation EKG: Ventricular paced rhythm with PVCs, no acute changes compared to previous EKG - Radiology Interpretation Chest x-ray Status: image reviewed by me, report reviewed by me (cardiomegaly and small right pleural effusion) FMR H&P: A/P - Problem List (1) Sepsis Current Visit: No Status: Acute Code(s): A41.9 - SEPSIS, UNSPECIFIED ORGANISM (2) Cellulitis of leg, right Current Visit: Yes Status: Acute Code(s): L03.115 - CELLULITIS OF RIGHT LOWER LIMB (3) Elevated troponin I level Current Visit: No Status: Acute Code(s): R74.8 - ABNORMAL LEVELS OF OTHER SERUM ENZYMES (4) ESRD on peritoneal dialysis Current Visit: No Status: Chronic Code(s): N18.6 - END STAGE RENAL DISEASE; Z99.2 - DEPENDENCE ON RENAL DIALYSIS (5) Neutropenia Current Visit: Yes Status: Acute Code(s): D70.9 - NEUTROPENIA, UNSPECIFIED (6) Hypotension Current Visit: No Status: Acute (7) Aortic stenosis Current Visit: No Status: Chronic Code(s): I35.0 - NONRHEUMATIC AORTIC ( VALVE) STENOSIS Qualifiers: Cardiac valve disease etiology: nonrheumatic Qualified Code(s): I35.0 - Nonrheumatic aortic (valve) stenosis (8) CAD (coronary artery disease) Current Visit: No Status: Chronic Code(s): I25.10 - ATHSCL HEART DISEASE OF [place] CORONARY ARTERY W/O ANG PCTRS (9) COPD (chronic obstructive pulmonary disease) Current Visit: No Status: Chronic (10) HTN (hypertension) Current Visit: No Status: Chronic Code(s): I10 - ESSENTIAL (PRIMARY) HYPERTENSION (11) Psoriasis Current Visit: No Status: Chronic Code(s): L40.9 - PSORIASIS, UNSPECIFIED - Plan 1) Sepsis: 2/2 right lower extremity cellulitis - OP therapy with keflex x2 doses from outside ER 1 day prior to admission - Blood and wound cultures taken in the ED - Started on Vancomycin and Clindamycin - 1L NS given in ED, will continue maintenance fluids, monitor closely due to CHF - Patient is neutropenic with ANC of 940, likely 2/2 methotrexate use - Lactic Acid elevated, will continue to monitor - AM CBC and BMP 2) Right Lower Extremity Cellulitis: - Continue IV Vancomycin and IV clindamycin, start IV Zosyn for pseudomonal coverage - Otherwise, as above - Consult wound care 3) Moderate Neutropenia - Likely 2/2 methotrexate - ANC of 940 - Hold methotrexate, continue to monitor 4) ESRD on PD, pt of Dr. Keita - Consulted Neela who requested I contact Dr. Marino - Dr. Marino consulted, appreciate recs 5) Hyperkalemia - K+ of 5.9 in the ED - Calcium Gluconate given in the ED - Kayexelate, nephrology recs - Recheck in AM - No EKG changes, asymptomatic 6) Elevated troponins - No active chest pain, no new EKG findings - Possibly 2/2 ESRD vs ESRD - Trend troponins 7) Elevated lactic acid - 2/2 #1 - continue to trend 8) HTN - hold home medications 9) Hypothyroidism - Home meds 10) COPD - Home inhalers CODE STATUS: DNR Discussed case with Attending, Dr. Arellano. Disposition/LOS: Admit to [facility], anticipate d/c home after admission >48 hrs. FMR H&P: Upper Level - Plan Date/Time: 12/23/17 3133 I, [], have evaluated this patient and agree with findings/plan as outlined by learning and development intern resident. Pertinent changes/additions are listed here. Attending Addendum - Attending Addendum Date/Time: 12/24/17 4790 I personally evaluated the patient and discussed the management with Dr. Cardenas on 12/23/17 @17:30 I agree with the History, Examination, Assessment and Plan documented above with any addition or exceptions noted below-This is a 72 year old F with a PMH of ESRD on PD, pAfib, HTN, CHF, COPD, Psoriasis, Hypothyroidism, Aortic Stenosis who presented to the ED with a 2 days history of right leg redness and pain. Yesterday patient went to the ER for the redness and pain and was prescribed keflex and discharged from the ED. This morning, the pain woke up with a fever of 102.5 and daughter noticed that the redness had significantly increased. Daughter also states that her symptoms have been associated with altered mental status, primarily in the form of difficulty finding words which is new for her. PMH/PSH/Meds/ All reviewed and agree with resident's documentation. Afebrile VSS Exam repeated by me and agree with resident's findings. Significant findings include RLE with area of redness along posterior portion on calf above the ankle; exquisitely tender to palpation; (+) warmth (+) mild swelling along dorsal portion of foot. Labs: WBC=1.0 H/H=10.3/30.6, Plt=16, MCV= 119, Diff=86N/B/4L, Gd=992, K=+5.9, BUN/Cr=42/5.19, AST/ALT=51/31, Trop I= 0.814 ->1.293, Lactic acid 3.1, CXR- cardiomegaly; no infiltrates. A/P: 1) Severe sepsis secondary to cellulitis- Admit ti [facility] for close monitoring. IV abx- Vanc /Clindamycin/Zosyn. BP and HR rate stable. 2) Pancytopenia- pateint with h/o of chronic anemia and thrombocytopenia. Hemoglobin near baseline but platelet count significnatly depressed along with WBC count. Patient on MTX for psoriatic arthritis and this may be contributing to the depressed counts along with her sepsis. No evidence of spontaneously bleeding. Continue to monitor closely. May need to transfuse platelets. 3) ESRD on PD- nephrology notifies and will arrange for PD. 4) Hyperkalemia- received calcium gluconate in ER, no EKG changes. Contonue to monitor.
[2017-12-23] MEDS ORDERED: Acetaminophen 325 MG TAB PO PRN (17:38)
[2017-12-23] MEDS ORDERED: Calcium Gluc 4.6 MEQ/10 ML (100 MG/ML) ONE (18:23)
[2017-12-23] MEDS ORDERED: HYDROcodone/Acetaminophen 7.5/325 mg Tablet ONE (19:23)
[2017-12-23 19:49] VITALS: BMI 18.5
[2017-12-23] MEDS ORDERED: HOLD VANCOMYCIN FOR LEVEL >20 FS SCH (20:00)
[2017-12-23] MEDS ORDERED: Vancomycin Sliding Scale 1 EACH FS ONE (20:00)
[2017-12-23 20:06] LABS: Platelet Count 13 thou/uL (130-400)
[2017-12-23 20:13] LABS: Fibrinogen 539 mg/dL (253-463)
[2017-12-23 20:14] LABS: INR-International Normal Ratio 1.1; Prothrombin Time 14.7 SEC (12.0-14.7)
[2017-12-23 20:15] LABS: D-Dimer Test 2.85 *mcg/mL (0.27-0.43)
[2017-12-23 20:23] LABS: FSP-Qualitative ABNORMAL (Normal); FSP-Semiquantitative >=5 & <20 mcg/mL (Less than 5)
[2017-12-23 20:32] LABS: Troponin I 1.293 ng/mL (< 0.028)
--- NOTE | 2017-12-23 21:30 | PDOC.EVN ---
Event Note - Event Note Event Note: Repeat troponin elevated to 1.2. Consulted cardiology for recs. Given low platelets and no chest pain, do not recommend anticoagulation. Case discussed with Dr. Joy.
[2017-12-23] MEDS: Clindamycin/D5W 900 MG in Premix Bag 1 BAG IVPB SCH (22:00)
[2017-12-23] MEDS: Piperacillin/Tazobactam 2.25 GM in Sodium Chloride 0.9% 100 ML IVPB SCH (22:01)
[2017-12-23] MEDS: HYDROcodone/Acetaminophen 7.5/325 mg Tablet PO PRN (22:36)
[2017-12-23 22:45] LABS: Anion Gap 19 mmol/L (10-20); BUN (Urea Nitrogen) 48 mg/dL (9.8-20.1); Calc. Creatinine Clearance 6 mL/min (70-130); Calcium 8.6 mg/dL (7.8-10.44); Carbon Dioxide 21 mmol/L (23-31); Chloride 98 mmol/L (98-107); Estimated GFR-MDRD 8; Glucose 102 mg/dL (83-110); Potassium 5.4 mmol/L (3.5-5.1); Sodium 133 mmol/L (136-145)
[2017-12-23 22:55] LABS: Troponin I 1.331 ng/mL (< 0.028)
--- NOTE | 2017-12-23 23:17 | CON ---
DATE OF CONSULTATION: 12/23/2017 REASON FOR CONSULTATION: Maintenance peritoneal dialysis. HISTORY OF PRESENT ILLNESS: This is a very pleasant 72-year-old female who presented to the hospital with a 1-day history of fever, chills, and cellulitis. The patient can give no further history. The patient's daughter said she had a temperature of 102.5 and had a wound on her leg. No further history can be obtained. PAST MEDICAL HISTORY: Atrial fibrillation, end-stage renal disease, hypertension, peritoneal dialysis, aortic stenosis, congestive heart failure, hypothyroidism, failure to thrive, cataract surgery, pericardial window, AV node ablation, PD catheter, AV fistula in right arm, pacemaker, thoracotomy. FAMILY HISTORY: Negative for ESRD. SOCIAL HISTORY: No alcohol or drug use. ALLERGIES: Reviewed. HOME MEDICATIONS: List reviewed. REVIEW OF SYSTEMS: Fifteen-point review of systems is unobtainable. The patient is very confused. PHYSICAL EXAMINATION: GENERAL: The patient is resting. VITAL SIGNS: Afebrile, pulse 81, breathing 16, blood pressure 109/44. GENERAL APPEARANCE AND MENTAL STATUS: Fair. HEAD/NECK: Normocephalic. Atraumatic. EYES: EOMI. No deformity. EARS: Clear. No ulcers. NOSE: Intact. No lesions. MOUTH: Clear. No discharge. THROAT: Clear. No exudate. LUNGS: Clear. No crackles. CARDIAC: S1, S2. No rub. ABDOMEN: Benign. BS+. GENITALIA/RECTUM: Stein absent. BACK/EXTREMITIES: Edema 0+. Ulcer-. NEUROLOGIC: The patient is confused. SKIN: Rash- Bruise- LYMPHATICS: Edema- Ulcer- LABORATORY DATA: Potassium is 5.9. ASSESSMENT AND RECOMMENDATIONS: 1. Stage 6 chronic kidney disease. Stop potassium supplementation. Start peritoneal dialysis. Orders were given. 2. Anemia, stable. 3. Hyperkalemia. Plan peritoneal dialysis. 4. Anemia. No indication for transfusion. We would follow the patient's potassium closely. Risks versus benefits of peritoneal dialysis were discussed. 5. Cellulitis, sepsis. Management per primary team. MTDD
[2017-12-24] MEDS: Clindamycin/D5W 900 MG in Premix Bag 1 BAG IVPB SCH ×3 (03:08→19:57)
[2017-12-24] MEDS ORDERED: Vancomycin HCl 1 GM in Sodium Chloride 0.9% 250 ML 300 ML IVPB SCH (03:15)
[2017-12-24] MEDS: HYDROcodone/Acetaminophen 7.5/325 mg Tablet PO PRN ×4 (04:19→19:57)
[2017-12-24] MEDS: Piperacillin/Tazobactam 2.25 GM in Sodium Chloride 0.9% 100 ML IVPB SCH (05:09)
[2017-12-24 05:17] LABS: Hemoglobin 9.3 g/dL (12.0-16.0); Mean Corpuscular HGB CONC 33.2 g/dL (32.0-36.0); Mean Corpuscular Hemoglobin 39.7 pg (27.0-31.0); Mean Platelet Volume 11.3 fL (7.4-10.4); Platelet Count 9 thou/uL (130-400); Red Blood Cell (RBC) Count 2.33 mill/uL (4.20-5.40)
[2017-12-24 05:22] LABS: Band 2 % (5-11); Lymphocytes 16 % (21-51); MDiff Complete? YES; Neutrophil 82 % (42-75); Nucleated RBC 1 % (0); PLT Morphology Comment Appears Decreased
[2017-12-24 05:26] LABS: Anion Gap 20 mmol/L (10-20); BUN (Urea Nitrogen) 46 mg/dL (9.8-20.1); Calc. Creatinine Clearance 6 mL/min (70-130); Calcium 8.3 mg/dL (7.8-10.44); Carbon Dioxide 20 mmol/L (23-31); Chloride 100 mmol/L (98-107); Estimated GFR-MDRD 8; Glucose 123 mg/dL (83-110); Sodium 136 mmol/L (136-145)
--- NOTE | 2017-12-24 05:48 | PDOC.FM ---
- Subjective Subjective: Concepcion Hayes seen at bedside this morning. She states that she is feeling better but she is continuing to have difficulty finding her words. There were no acute events overnight. She has no other complaints this morning. Daughter in room with patient. - Objective MAR Reviewed: Yes Vital Signs & Weight: Vital Signs (12 hours) Temp Pulse Resp BP Pulse Ox 12/24/17 04:31 97.2 F L 80 16 100/42 L 93 L 12/24/17 00:00 98.9 F 85 16 117/50 L 94 L 12/23/17 20:00 100.1 F H 82 20 Result Diagrams: 12/24/17 04:56 12/24/17 04:56 <Yasir Cardenas - Last Filed: 12/24/17 10:20> - Objective Vital Signs & Weight: Vital Signs (12 hours) Temp Pulse Resp BP Pulse Ox 12/24/17 12:01 98.3 F 80 24 H 111/40 L 98 12/24/17 08:00 98.2 F 82 20 97 12/24/17 07:37 98.2 F 82 81/37 L 98 12/24/17 04:31 97.2 F L 80 16 100/42 L 93 L Weight Admit Weight 43.091 kg Weight 43.091 kg I&O: 12/23/17 12/24/17 12/25/17 06:59 06:59 06:59 Output Total 1182 Balance -1182 Result Diagrams: 12/24/17 04:56 12/24/17 04:56 <Miladys Arellano - Last Filed: 12/24/17 15:32> Phys Exam - Physical Examination Constitutional: NAD HEENT: moist MMs, sclera anicteric Neck: no JVD, supple, full ROM Respiratory: no wheezing, no rales, no rhonchi, clear to auscultation bilateral Cardiovascular: RRR, no significant murmur Gastrointestinal: soft, no distention diffuse TTP Musculoskeletal: no edema, pulses present Neurological: non-focal, normal sensation, moves all 4 limbs Psychiatric: normal affect Skin: no rash <Yasir Cardenas - Last Filed: 12/24/17 10:20> Dx/Plan (1) Sepsis Code(s): A41.9 - SEPSIS, UNSPECIFIED ORGANISM Status: Acute (2) Cellulitis of leg, right Code(s): L03.115 - CELLULITIS OF RIGHT LOWER LIMB Status: Acute (3) Elevated troponin I level Code(s): R74.8 - ABNORMAL LEVELS OF OTHER SERUM ENZYMES Status: Acute (4) Hyperkalemia Code(s): E87.5 - HYPERKALEMIA Status: Resolved (5) ESRD on peritoneal dialysis Code(s): N18.6 - END STAGE RENAL DISEASE; Z99.2 - DEPENDENCE ON RENAL DIALYSIS Status: Chronic (6) Neutropenia Code(s): D70.9 - NEUTROPENIA, UNSPECIFIED Status: Acute (7) Hypotension Status: Acute (8) Aortic stenosis Code(s): I35.0 - NONRHEUMATIC AORTIC (VALVE) STENOSIS Status: Chronic QualifierTitle: Cardiac valve disease etiology: nonrheumatic Qualified Code(s): I35.0 - Nonrheumatic aortic (valve) stenosis (9) CAD (coronary artery disease) Code(s): I25.10 - ATHSCL HEART DISEASE OF [place] CORONARY ARTERY W/O ANG PCTRS Status: Chronic (10) COPD (chronic obstructive pulmonary disease) Status: Chronic (11) HTN (hypertension) Code(s): I10 - ESSENTIAL (PRIMARY) HYPERTENSION Status: Chronic (12) Psoriasis Code(s): L40.9 - PSORIASIS, UNSPECIFIED Status: Chronic (13) Acute exacerbation of CHF (congestive heart failure) Code(s): I50.9 - HEART FAILURE, UNSPECIFIED Status: Acute (14) Pancytopenia Code(s): D61.818 - OTHER PANCYTOPENIA Status: Acute - Plan Plan: 1) Sepsis: 2/2 right lower extremity cellulitis - OP therapy with keflex x2 doses from outside ER 1 day prior to admission - Blood and wound cultures taken in the ED - Started on Vancomycin and Clindamycin, adding Cefepime for pseudomonas coverage - 1L NS given in ED, will continue maintenance fluids, monitor closely due to CHF - Patient is neutropenic with ANC of 940, likely 2/2 methotrexate use - Lactic Acid elevated, will continue to monitor - AM CBC and BMP - Bolus 1 L NS this morning 2) Right Lower Extremity Cellulitis: - Continue IV Vancomycin and IV clindamycin, IV Cefepime - Otherwise, as above - Consult wound care 3) Pancytopenia - Likely 2/2 methotrexate - ANC of 940 - Hold methotrexate, continue to monitor - Platelets 9 this morning, transfuse 6 pk of platelets 4) ESRD on PD, pt of Dr. Keita - Consulted Neela who requested I contact Dr. Marino - Dr. Marino consulted, appreciate recs - continue PD 5) Hyperkalemia: resolved - K+ of 5.9 in the ED, this morning it is 4.0 - Calcium Gluconate given in the ED - Kayexelate, nephrology recs - Recheck in AM - No EKG changes, asymptomatic 6) Elevated troponins - No active chest pain, no new EKG findings - Possibly 2/2 ESRD vs demand ischemia - trops mj to 1.31 overnight - cardiology consulted, recommended against anticoagulation because no chest pain and low platelets 7) Elevated lactic acid - 2/2 #1 - continue to trend 8) HTN - hold home medications 9) Hypothyroidism - Home meds 10) COPD - Home inhalers 11) Acute [place] [address] - clinically not volume overloaded - no LE edema, cardiomegaly and small right pleural effusion on CXR - no respiratory distress - continue home meds and cont to monitor <Yasir Cardenas - Last Filed: 12/24/17 10:20> (1) Sepsis Code(s): A41.9 - SEPSIS, UNSPECIFIED ORGANISM Status: Acute (2) Cellulitis of leg, right Code(s): L03.115 - CELLULITIS OF RIGHT LOWER LIMB Status: Acute (3) Elevated troponin I level Code(s): R74.8 - ABNORMAL LEVELS OF OTHER SERUM ENZYMES Status: Acute (4) ESRD on peritoneal dialysis Code(s): N18.6 - END STAGE RENAL DISEASE; Z99.2 - DEPENDENCE ON RENAL DIALYSIS Status: Chronic (5) Neutropenia Code(s): D70.9 - NEUTROPENIA, UNSPECIFIED Status: Acute (6) Hypotension Status: Acute (7) Aortic stenosis Code(s): I35.0 - NONRHEUMATIC AORTIC (VALVE) STENOSIS Status: Chronic Qualifiers: Cardiac valve disease etiology: nonrheumatic Qualified Code(s): I35.0 - Nonrheumatic aortic (valve) stenosis (8) CAD (coronary artery disease) Code(s): I25.10 - ATHSCL HEART DISEASE OF [place] CORONARY ARTERY W/O ANG PCTRS Status: Chronic (9) COPD (chronic obstructive pulmonary disease) Status: Chronic (10) HTN (hypertension) Code(s): I10 - ESSENTIAL (PRIMARY) HYPERTENSION Status: Chronic (11) Psoriasis Code(s): L40.9 - PSORIASIS, UNSPECIFIED Status: Chronic <Miladys Arellano - Last Filed: 12/24/17 15:32> Attending Addendum - Attending Addendum Date/Time: 12/24/17 8808 I personally evaluated the patient and discussed the management with Dr. Cardenas. I agree with the History, Examination, Assessment and Plan documented above with any addition or exceptions noted below- Patient still having pain in lower extremity but feeling a little better. Family states that she is still having trouble finding her words. Afebrile VSS. A/P: 1) Severe sepsis secondary to cellulitis- redness has not advanced passed the markings; still exquisitely tender; contonue current abx. Pulmonary/ICU notified of admission and will see patient. 2) Hyperkalemia- improved; appreciate nephology assistance. 3) Thromobocytopenia- worsened; will transfuse platelets as her count now below 9K. 3) Leukopenia/Neutropenia- no significant change. Continue to monitor. <Miladys Arellano - Last Filed: 12/24/17 15:32>
[2017-12-24] MEDS ORDERED: Vancomycin HCl 500 MG in Sodium Chloride 0.9% 100 ML IVPB SCH (09:00)
[2017-12-24] MEDS ORDERED: Vancomycin HCl 1.25 GM in Sodium Chloride 0.9% 250 ML 250 ML IVPB SCH (09:00)
[2017-12-24] MEDS ORDERED: Vancomycin HCl 1 GM in Premix Bag 1 BAG IVPB SCH (09:00)
[2017-12-24] MEDS ORDERED: Vancomycin HCl 750 MG in Sodium Chloride 0.9% 250 ML 250 ML IVPB SCH (09:00)
[2017-12-24 09:40] LABS: Vancomycin, Random 15.2 ug/mL (See Comment)
[2017-12-24] MEDS ORDERED: PROVENTIL INHALER 6.7 G (200 INHALATIONS) INH PRN (09:58)
--- NOTE | 2017-12-24 10:41 | PRG ---
DATE OF SERVICE: 12/24/2017 SUBJECTIVE: This is a 72-year-old female being seen for end-stage renal disease and hyperkalemia. T he patient denies any nausea, vomiting or chest pain. PHYSICAL EXAMINATION: GENERAL: Patient is awake, alert. VITAL SIGNS: Afebrile, pulse 62, breathing 16, blood pressure was 100/42. OBJECTIVE: See above. Awake, alert, in no acute distress. GENERAL APPEARANCE AND MENTAL STATUS: Fair. HEAD/NECK: Normocephalic. Atraumatic. EYES: EOMI. No deformity. EARS: Clear. No ulcers. NOSE: Intact. No lesions. MOUTH: Clear. No discharge. THROAT: Clear. No exudate. LUNGS: Clear. No crackles. CARDIAC: S1, S2. No rub. ABDOMEN: Benign. BS+. GENITALIA/RECTUM: Stein absent. BACK/EXTREMITIES: Edema 0+ Ulcer- NEUROLOGICAL: Alert and motor intact. SKIN: Rash- Bruise- LYMPHATICS: Edema- Ulcer- ASSESSMENT AND RECOMMENDATIONS: 1. Stage 6 chronic kidney disease. Continue peritoneal dialysis. 2. Anemia and leukopenia, management per primary team. 3. Hyperkalemia, improved. 4. Hypertension, stable. 5. Medication based on glomerular filtration rate appropriate.
--- NOTE | 2017-12-24 13:38 | CON ---
DATE OF CONSULTATION: 12/24/2017 SERVICE: Pulmonary Medicine. REASON FOR CONSULTATION: CU patient. HISTORY OF PRESENT ILLNESS: The patient is a 72-year-old white female with past medical history sign ificant for end-stage renal disease. She was having hot, red, swollen foot and some increasing confu zurdo. She presented to the emergency department and was discovered to have severe sepsis. She was s ubsequently tucked into the [facility]. She denies any current chest pain, nausea or vomiting. She is hav ing some word finding difficulties. It is not clear to me whether or not this is acute or chronic is gris. That being said, she is awake and alert. She has no specific distress. Apparently, there was some fevers that predated this admission. PAST MEDICAL HISTORY: 1. End-stage renal disease, on peritoneal dialysis. 2. Psoriasis. 3. Aortic stenosis. 4. Chronic obstructive pulmonary disease. 5. Chronic diastolic heart failure. 6. Hypertension. 7. Dyslipidemia. 8. Paroxysmal atrial fibrillation. 9. Hypothyroidism. PAST SURGICAL HISTORY: 1. Cataract surgery in 2009, bilateral. 2. Tubal ligation. 3. Pericardial window. 4. AV ablation in 2016. 5. Peritoneal dialysis catheter placement. 6. AV fistula in the right arm. 7. Pacemaker placement in 2015. 8. Thoracostomy in 2014. 9. Fats surgery. FAMILY HISTORY: Noncontributory. SOCIAL HISTORY: She has a greater than [id number] history of smoking, but quit within the year. D enies any alcohol or illicit drug use. She has no exposure to chemicals, dust, asbestos or tuberculo sis. ALLERGIES: CIPRO, ADHESIVE. MEDICATIONS: List of her inpatient medications were reviewed. No specific updates were made at this time. REVIEW OF SYSTEMS: This cannot be obtained currently. The patient is having pretty extreme word fin ding difficulties. PHYSICAL EXAMINATION: VITAL SIGNS: Afebrile currently with a T-max of 100.1 recorded during the current hospital stay, pu lse 80, blood pressure 111/40, respirations 24, saturation 98% on 2 liters nasal cannula. GENERAL: The patient is awake, alert, no apparent distress. LUNGS: Decent air entry. There is no prolonged expiratory phase. I hear minimal dependent crackles present. HEART: Normal rate, regular. ABDOMEN: Soft, nontender, nondistended. Bowel sounds are positive. MUSCULOSKELETAL: No cyanosis or clubbing. No pitting in the bilateral lower extremities. Her right lower extremity is hot and red. The erythema is staying distal to the line and has been drawn aroun d it. NEUROLOGIC: Grossly nonfocal. LABORATORY DATA: WBC 1.0, hemoglobin 9.3, platelets 9000. Neutrophil count is 82%. INR 1.1. Creat inine 5.43, BUN 46, basic metabolic profile is otherwise unremarkable. Troponin 1.33 and gently up t rending, BNP 12,000. Alkaline phosphatase 208, AST and ALT are minimally elevated. Total bilirubin 1.6. Urinalysis is unremarkable. Microbiology results are negative to date. ASSESSMENT: 1. Severe sepsis. 2. Cellulitis of the right lower extremity. 3. End-stage renal disease. 4. Pancytopenia. DISCUSSION AND PLAN: It is not clear to me whether or not the elevated white blood cell or the low w johnny blood cell count, platelet is a function of her severe sepsis profile or whether this represents a new pancytopenia event. I agree with our empiric antibiotics directed at cellulitis. Supportive measures will be continued. She will be watched closely in the ICU. She is a DNI/DNR. The patient made one comment about how she is extraordinarily tired of coming back and forth between the hospital and does not think any of this stuff is worth it any longer. Palliative Care consultation will be p mary. Dr. Castellon will assume care in the morning as he has previously established relationship with t his patient.
[2017-12-24] MEDS: Mometasone/Formoterol 120 PUFF INHALER INH SCH (18:42)
[2017-12-24 19:49] LABS: Hemoglobin 8.2 g/dL (12.0-16.0); Mean Corpuscular HGB CONC 33.1 g/dL (32.0-36.0); Mean Corpuscular Hemoglobin 39.2 pg (27.0-31.0); Platelet Count 33 thou/uL (130-400); RBC Distribution Width 14.9 % (11.5-14.5); Red Blood Cell (RBC) Count 2.09 mill/uL (4.20-5.40); White Blood Cell (WBC) Count 0.8 thou/uL (4.8-10.8)
[2017-12-24 20:06] LABS: Anisocytosis SLIGHT = 6-15 cells (100X) (0-5/hpf); MDiff Complete? YES; Macrocytosis SLIGHT = 6-15 cells (100X) (0-5/hpf); Ovalocytes SLIGHT = 2-5 cells (100X) (0-1/hpf); PLT Morphology Comment Appears Decreased
[2017-12-24] MEDS ORDERED: Non-Formulary Item 1 EACH (Budesonide-Formoterol [Symbicort 160-4.5] 2 INHALER) PO SCH (21:00)
[2017-12-24] MEDS: Cefepime 2 GM in Sodium Chloride 0.9% 100 ML IVPB SCH (21:44)
[2017-12-25] MEDS: HYDROcodone/Acetaminophen 7.5/325 mg Tablet PO PRN ×3 (00:59→16:55)
[2017-12-25 04:58] LABS: Hemoglobin 8.6 g/dL (12.0-16.0); Mean Corpuscular HGB CONC 32.6 g/dL (32.0-36.0); Mean Corpuscular Hemoglobin 39.1 pg (27.0-31.0); Mean Platelet Volume 9.4 fL (7.4-10.4); Platelet Count 31 thou/uL (130-400); RBC Distribution Width 14.5 % (11.5-14.5); Red Blood Cell (RBC) Count 2.21 mill/uL (4.20-5.40); White Blood Cell (WBC) Count 0.9 thou/uL (4.8-10.8)
[2017-12-25] MEDS: Levothyroxine Sodium 88 MCG TAB PO SCH (05:07)
[2017-12-25] MEDS: Clindamycin/D5W 900 MG in Premix Bag 1 BAG IVPB SCH ×3 (05:07→20:16)
[2017-12-25 05:12] LABS: Anion Gap 19 mmol/L (10-20); BUN (Urea Nitrogen) 44 mg/dL (9.8-20.1); Calc. Creatinine Clearance 7 mL/min (70-130); Carbon Dioxide 23 mmol/L (23-31); Chloride 97 mmol/L (98-107); Estimated GFR-MDRD 8; Glucose 113 mg/dL (83-110); Potassium 3.3 mmol/L (3.5-5.1); Sodium 136 mmol/L (136-145)
[2017-12-25 05:18] LABS: Troponin I 1.762 ng/mL (< 0.028)
[2017-12-25 05:47] LABS: #Eosinphils 0.1 thou/uL (0.0-0.7); #Lymphocytes 0.2 thou/uL (1.20-3.40); #Neutrophils 0.6 thou/uL (1.40-6.50); %Basophils 1.1 % (0.0-1.0); %Eosinophils 13.5 % (0.0-10.0); %Lymphocytes 18.4 % (21.0-51.0); %Monocytes 2.3 % (0.0-10.0); %Neutrophils 64.7 % (42.0-75.0); MDiff Complete? YES; Macrocytosis SLIGHT = 6-15 cells (100X) (0-5/hpf); PLT Morphology Comment Appears Decreased; Tear Drops SLIGHT = 2-5 cells (100X) (0-1/hpf)
--- NOTE | 2017-12-25 06:22 | PDOC.FM ---
- Subjective Subjective: Concepcion Hayes seen at bedside this morning. Her mental status is definitely improving. She is not having as much difficulty with word finding today and she is able to speak in complete sentences. She denies any fevers overnight. He pain has been better controlled. Spoke to daughter outside of the room, along PCP, Dr. Segundo, and daughter expressed concern of her mother's longterm prognosis and ability for her to care for her mother at home. Discussed getting case management involved to discuss placement for her. - Objective MAR Reviewed: Yes Vital Signs & Weight: Vital Signs (12 hours) Temp Pulse Resp BP Pulse Ox 12/25/17 05:38 92/42 L 12/25/17 03:54 98.0 F 79 14 80/43 L 98 12/24/17 23:46 98.0 F 78 16 93/43 L 100 12/24/17 20:00 98.0 F 81 18 96/46 L 100 12/24/17 18:42 80 16 100 Weight Admit Weight 43.091 kg Weight 43.091 kg Most Recent Monitor Data Heart Rate from ECG 78 NIBP 105/42 Respiration from ECG 16 I&O: 12/23/17 12/24/17 12/25/17 06:59 06:59 06:59 Intake Total 1500 Output Total 1182 Balance 318 Result Diagrams: 12/25/17 03:45 12/25/17 03:45 <Yasir Cardenas - Last Filed: 12/25/17 09:14> - Objective Vital Signs & Weight: Vital Signs (12 hours) Temp Pulse Pulse Pulse Resp BP BP 12/25/17 19:57 98.1 F 80 17 12/25/17 17:10 82 83 89/48 L 90/40 L 12/25/17 15:55 97.8 F 86 18 12/25/17 11:32 98.9 F 81 BP Pulse Ox Pulse Ox Pulse Ox 12/25/17 19:57 90/40 L 100 12/25/17 17:10 100 94 L 12/25/17 15:55 89/48 L 94 L 12/25/17 11:32 99/46 L 90 L Weight Admit Weight 43.091 kg Weight 43.091 kg Most Recent Monitor Data Heart Rate from ECG 78 NIBP 105/42 Respiration from ECG 16 I&O: 0712/25/17 12/26/17 06:59 06:59 06:59 Intake Total 1500 900 Output Total 1182 Balance 318 900 Result Diagrams: 12/25/17 03:45 12/25/17 03:45 <Miladys Arellano - Last Filed: 12/25/17 21:25> Phys Exam - Physical Examination Constitutional: NAD HEENT: moist MMs, sclera anicteric Neck: no JVD, supple, full ROM Respiratory: no wheezing, no rales, no rhonchi, clear to auscultation bilateral Cardiovascular: RRR, no significant murmur Gastrointestinal: soft, non-tender, no distention Musculoskeletal: no edema, pulses present Neurological: non-focal, normal sensation, moves all 4 limbs Psychiatric: normal affect, A&O x 3 Deviation from normal: improvement in erythema compared to yesterday's exam <RonaldEzekielYaisr - Last Filed: 12/25/17 09:14> Dx/Plan (1) Sepsis Code(s): A41.9 - SEPSIS, UNSPECIFIED ORGANISM Status: Acute (2) Cellulitis of leg, right Code(s): L03.115 - CELLULITIS OF RIGHT LOWER LIMB Status: Acute (3) Elevated troponin I level Code(s): R74.8 - ABNORMAL LEVELS OF OTHER SERUM ENZYMES Status: Acute (4) Hyperkalemia Code(s): E87.5 - HYPERKALEMIA Status: Resolved (5) ESRD on peritoneal dialysis Code(s): N18.6 - END STAGE RENAL DISEASE; Z99.2 - DEPENDENCE ON RENAL DIALYSIS Status: Chronic (6) Neutropenia Code(s): D70.9 - NEUTROPENIA, UNSPECIFIED Status: Acute (7) Hypotension Status: Acute (8) Aortic stenosis Code(s): I35.0 - NONRHEUMATIC AORTIC (VALVE) STENOSIS Status: Chronic QualifierTitle: Cardiac valve disease etiology: nonrheumatic Qualified Code(s): I35.0 - Nonrheumatic aortic (valve) stenosis (9) CAD (coronary artery disease) Code(s): I25.10 - ATHSCL HEART DISEASE OF [place] CORONARY ARTERY W/O ANG PCTRS Status: Chronic (10) COPD (chronic obstructive pulmonary disease) Status: Chronic (11) HTN (hypertension) Code(s): I10 - ESSENTIAL (PRIMARY) HYPERTENSION Status: Chronic (12) Psoriasis Code(s): L40.9 - PSORIASIS, UNSPECIFIED Status: Chronic (13) Acute exacerbation of CHF (congestive heart failure) Code(s): I50.9 - HEART FAILURE, UNSPECIFIED Status: Acute (14) Pancytopenia Code(s): D61.818 - OTHER PANCYTOPENIA Status: Acute - Plan Plan: 1) Sepsis: 2/2 right lower extremity cellulitis - OP therapy with keflex x2 doses from outside ER 1 day prior to admission - Blood and wound cultures taken in the ED - Started on Vancomycin and Clindamycin, adding Cefepime for pseudomonas coverage - 1L NS given in ED, will continue maintenance fluids, monitor closely due to CHF - Patient is neutropenic with ANC of 940, likely 2/2 methotrexate use - Lactic Acid elevated, will continue to monitor - AM CBC and BMP - Bolus 1 L NS this morning 2) Right Lower Extremity Cellulitis: - Continue IV Vancomycin and IV clindamycin, IV Cefepime - Otherwise, as above - Consult wound care 3) Pancytopenia - Likely 2/2 methotrexate - ANC of 940 - Hold methotrexate, continue to monitor - s/p 1 6pk of platelets, platelets this morning are 31 - Consulted heme/onc, appreciate recs - Hg has stabilized 4) ESRD on PD, pt of Dr. Keita - Consulted Neela who requested I contact Dr. Marino - Dr. Marino consulted, appreciate recs - continue PD 5) Hyperkalemia: resolved - K+ of 5.9 in the ED, this morning it is 3.3, supplement - Calcium Gluconate given in the ED - nephrology recs - Recheck in AM - No EKG changes, asymptomatic 6) Elevated troponins - No active chest pain, no new EKG findings - Possibly 2/2 ESRD vs demand ischemia - trops mj to 1.76 - cardiology consulted, recommended against anticoagulation because no chest pain and low platelets 7) Elevated lactic acid - 2/2 #1 - continue to trend 8) HTN - hold home medications 9) Hypothyroidism - Home meds 10) COPD - Home inhalers 11) Acute [place] [address] - clinically not volume overloaded - no LE edema, cardiomegaly and small right pleural effusion on CXR - no respiratory distress - continue home meds and cont to monitor <Ronald,Yasir - Last Filed: 12/25/17 09:14> (1) Sepsis Code(s): A41.9 - SEPSIS, UNSPECIFIED ORGANISM Status: Acute (2) Cellulitis of leg, right Code(s): L03.115 - CELLULITIS OF RIGHT LOWER LIMB Status: Acute (3) Elevated troponin I level Code(s): R74.8 - ABNORMAL LEVELS OF OTHER SERUM ENZYMES Status: Acute (4) ESRD on peritoneal dialysis Code(s): N18.6 - END STAGE RENAL DISEASE; Z99.2 - DEPENDENCE ON RENAL DIALYSIS Status: Chronic (5) Neutropenia Code(s): D70.9 - NEUTROPENIA, UNSPECIFIED Status: Acute (6) Hypotension Status: Acute (7) Aortic stenosis Code(s): I35.0 - NONRHEUMATIC AORTIC (VALVE) STENOSIS Status: Chronic Qualifiers: Cardiac valve disease etiology: nonrheumatic Qualified Code(s): I35.0 - Nonrheumatic aortic (valve) stenosis (8) CAD (coronary artery disease) Code(s): I25.10 - ATHSCL HEART DISEASE OF [place] CORONARY ARTERY W/O ANG PCTRS Status: Chronic (9) COPD (chronic obstructive pulmonary disease) Status: Chronic (10) HTN (hypertension) Code(s): I10 - ESSENTIAL (PRIMARY) HYPERTENSION Status: Chronic (11) Psoriasis Code(s): L40.9 - PSORIASIS, UNSPECIFIED Status: Chronic <Miladys Arellano - Last Filed: 12/25/17 21:25> Attending Addendum - Attending Addendum Date/Time: 12/25/172119 I personally evaluated the patient and discussed the management with Dr. Cardenas I agree with the History, Examination, Assessment and Plan documented above with any addition or exceptions noted below- Patient less confused today. Denies any complaints. Reports pain in leg much better. Afebrile VSS. A/P: 1) Cellulitis- improving. Continue current abx. 2) Neutropenia- appreciate heme/ onc recommendations; continue to monitor. 3) ESRD- contonue PD. 4)D/C planning- family interestedin possible placement. <Miladys Arellano - Last Filed: 12/25/17 21:25>
[2017-12-25 06:50] LABS: Lactic Acid 3.7 mmol/L (0.5-2.2)
[2017-12-25] MEDS: Mometasone/Formoterol 120 PUFF INHALER INH SCH ×2 (07:27→19:35)
--- NOTE | 2017-12-25 08:25 | PDOC.EVN ---
Event Note - Event Note Event Note: Continuity visit 12/25/17 Dr. Segundo PCP with Dr. Arellano attending. S: 72 yo female is evaluated this AM. Patient diagnosed with cellulitis on broad spectrum antibiotics. Patient is Alert and Oriented x2 this AM, but having word finding difficulties. Patient understands she is sick and expresses that she is getting "tired of all of it." Patient's daughter is seen in the room this morning as well. Patient's daughter overwhelmed by current situation. Currently patient lives at home with daughter and her family; however, daughter feels that she can longer provide good care to her mother and still do her duties to her own family. There is added stress and she would like to explore care home placement options. No other complaints this morning. O: Vitals: Temp 97.7, BP 90/41, Pulse 80, O2 Saturation 90 on 2L General: Cachexic female resting in bed, NAD HEENT: normocephalic, atraumatic, Skin: Multiple ecchymosis present everywhere. CV: RRR, no murmurs. Respiratory: CTA bilaterally. No wheezing Extremities: Erythema and swelling on RLE improved from previous by markings. A/P 1) Sepsis: 2/2 right lower extremity cellulitis - Blood and wound cultures taken in the ED - Started on Vancomycin and Clindamycin, adding Cefepime for pseudomonas coverage - Patient is neutropenic with ANC of 940, likely 2/2 methotrexate use - AM CBC and BMP 2) Right Lower Extremity Cellulitis: - Continue IV Vancomycin and IV clindamycin, IV Cefepime - Otherwise, as above - Consult wound care 3) Pancytopenia - Likely 2/2 methotrexate - Hold methotrexate, continue to monitor - s/p platelets transfusion, platelets this morning are 31 - Consulted heme/onc, appreciate recs - Hg has stabilized 4) ESRD on PD, pt of Dr. Keita - Consulted Neela who requested I contact Dr. Marino - Dr. Marino consulted, appreciate recs - continue PD 5) Hyperkalemia: resolved - Calcium Gluconate given in the ED - nephrology recs - No EKG changes, asymptomatic 6) Elevated troponins - No active chest pain, no new EKG findings - Possibly 2/2 ESRD vs demand ischemia - trops mj to 1.76 - cardiology consulted, recommended against anticoagulation because no chest pain and low platelets 7) Elevated lactic acid - 2/2 #1 - continue to trend 8) HTN - hold home medications 9) Hypothyroidism - Home meds 10) COPD - Home inhalers 11) [place] [address] - clinically not volume overloaded - no LE edema, cardiomegaly and small right pleural effusion on CXR - no respiratory distress - continue home meds and cont to monitor Disposition: Guarded, will continue current plan of care. Will consider Case management consultation for long term care administrator care placement to reduce stress on family members.
--- NOTE | 2017-12-25 08:38 | PRG ---
DATE OF SERVICE: 12/25/2017 This morning she is having pain. No difficulty breathing. She is weak, she is undergoing peritoneal dialysis. Sats are 90 on 2 liters, temperature 97, pulse 80. I spoke to her daughters at the bedside. She was admitted several days ago with worsening lower extr emity swelling and redness. PHYSICAL EXAMINATION: VITAL SIGNS: On examination this morning, sats are 90 on 2 liters, respiration 20, temperature 97, p ulse 80, blood pressure 90/41. EXTREMITIES: There is some redness in the lower extremities, minimal edema. CHEST: Chest reveals decreased breath sounds, no wheezing. CARDIAC: Normal S1, S2, no gallops. ABDOMEN: Soft, no masses. LABORATORY: White count is 0.9, H&H 8 and 26, platelet count is 31. Creatinine is 5.3, troponin 1.72. IMPRESSION: 1. Multiorgan failure. 2. End-stage chronic obstructive pulmonary disease. 3. Congestive heart failure. 4. Renal failure. 5. Cellulitis. 6. Pancytopenia. Pancytopenia probably secondary to methotrexate. 7. History of previous aortic stenosis. PLAN: I agree with holding methotrexate, continue aggressive PT. Antibiotic as outlined. Deescalat e once we get cultures back. We will follow while in the [facility].
[2017-12-25] MEDS: Folic Acid/Vit B Comp W-C PO SCH (09:05)
[2017-12-25] MEDS: Folic Acid 1 MG TAB PO SCH (09:05)
[2017-12-25] MEDS: Lactinex Tablet PO SCH (09:05)
[2017-12-25] MEDS: Cefepime 2 GM in Sodium Chloride 0.9% 100 ML IVPB SCH ×2 (09:05→20:17)
--- NOTE | 2017-12-25 10:25 | CON ---
DATE OF CONSULTATION: 12/25/2017 REASON FOR CONSULTATION: Pancytopenia. HISTORY OF PRESENT ILLNESS: Ms. Hayes is a 72-year-old female with a past medical history of end-stage renal disease on peritoneal dialysis and psoriasis who presented to the [place] [facility] for a right lower extremity pain. She was diagnosed with cellulitis, given Keflex and discharged home. The next morning she woke up with 102.5 fever. Daughter states that she had some altered mental status, so she came to this ER for evaluation. A CBC drawn in the emergency room showed a white count of 1.0, hemoglobin of 10.3 and a platelet count of 16,000. She was admitted for sepsis and pancytopenia. The patient has a history of psoriasis and has been on methotrexate. She is unable to tell me for how long she has been on it. Review of medical records show that she has been on it for at least several years. She has been seen in our clinic approximately 3 years ago for anemia associated with kidney dysfunction. She was on Procrit until she was started on peritoneal dialysis. Her methotrexate has been stopped. She has been transfused a unit of platelets. Her platelets have improved to 31,000. However, she remains neutropenic with a white count of 0.9. She denies any complaints at this time. PAST MEDICAL HISTORY: 1. End-stage renal disease on peritoneal dialysis. 2. Psoriasis. 3. Aortic stenosis. 4. Chronic obstructive pulmonary disease.. 5. Diastolic heart failure. 6. Hypertension. 7. Hyperlipidemia. 8. Atrial fibrillation. 9. Hypothyroidism. PAST SURGICAL HISTORY: 1. Cataract surgery. 2. Tubal ligation. 3. Pericardial window. 4. Ablation 5. Pacemaker. 6. Arthroscopy. 7. Peritoneal dialysis catheter placement. ALLERGIES: CIPRO and ADHESIVES. HOME MEDICATIONS: 1. Ventolin inhaler p.r.n. 2. Symbicort b.i.d. 3. Folic acid daily. 4. Levothyroxine 88 mcg daily. 5. Methotrexate 2.5 mg weekly. 6. Potassium chloride 20 mEq daily. FAMILY HISTORY: Noncontributory. SOCIAL HISTORY: She has got a 16-kqwu-gkvu history of smoking. No alcohol or illicit drug use. REVIEW OF SYSTEMS: CONSTITUTIONAL: Positive for fever, chills, no night sweats or weight loss. EYES: No blurred or double vision. ENT: No pain, hoarseness, sore throat, or dysphagia. CARDIOVASCULAR: No chest pain, palpitations, syncope. RESPIRATORY: No shortness of breath, dyspnea on exertion or orthopnea. GASTROINTESTINAL: No nausea, vomiting, diarrhea, constipation or abdominal pain. GENITOURINARY: No dysuria or hematuria. MUSCULOSKELETAL: Positive for joint pain. SKIN: Positive for rash and pruritus. NEUROLOGIC: Denies headache, numbness, tingling, weakness, seizure activity. PSYCHIATRIC: No anxiety or depression. PHYSICAL EXAMINATION: VITAL SIGNS: Temperature is 97.7, pulse is 80, respiratory rate 18, BP is 90/ 41. She is 90% on 2 liters. GENERAL: This is a thin female in no acute distress. HEENT: Normocephalic, atraumatic. Pupils equal and reactive to light. NECK: Supple. HEART: Regular rate and rhythm. LUNGS: Clear. ABDOMEN: Soft, nontender, bowel sounds are positive. EXTREMITIES: No clubbing, cyanosis or edema. SKIN: She had a cellulitis in the right lower extremity. HEMATOLOGIC: She has got ecchymosis on her lower and upper extremities. NEUROLOGICAL: Nonfocal. PSYCHIATRIC: The patient has difficulty expressing herself. PERTINENT LABORATORY AND X-RAYS: Current WBCs are 0.9, hemoglobin 8.6, hematocrit 26.5, platelet count 31,000, 64% neutrophils, 18% lymphocytes, 2%, monocytes, 13%, eosinophils, PT 14.1, INR is 1.1, PTT 37. Sodium is 136, potassium 3.3, chloride 97, CO2 is 23, BUN is 44, creatinine 5.32. Lactic acid is 3.7, calcium is 8, total bilirubin is 1.6, AST is 51, ALT 31, alkaline phosphatase is 208. Troponin is positive. BNP is 12,286, serum total protein is 5.9, albumin 2.7, globulin 3.2. IMPRESSION: 1. Pancytopenia. 2. Psoriasis, on methotrexate. 3. End-stage renal disease on peritoneal dialysis. 4. Right lower extremity cellulitis. 5. Diastolic heart failure. DISCUSSION: Case has been discussed with Dr. Cheema. Methotrexate has been stopped. We recommend that she stay off of this medication. She will need to follow up with her hygiene assistant. Leucovoran administration was discussed. Dr. Cheema felt that it is too late to give at this time. We will continue to monitor her CBC and transfuse her p.r.n. Continue neutropenic precautions and empiric antibiotics. Thank you for the consult. We will follow her remotely. JALEN
[2017-12-25] MEDS: Potassium Chloride 20 MEQ TAB PO SCH (11:40)
--- NOTE | 2017-12-25 12:02 | PRG ---
DATE OF SERVICE: 12/25/2017 SUBJECTIVE: This is a 72-year-old female being seen for end-stage renal disease. The patient denies any nausea, vomiting or chest pain. PHYSICAL EXAMINATION: GENERAL: Patient is awake, alert. VITAL SIGNS: Afebrile, pulse 80, breathing 16, blood pressure 92/48. HEAD/NECK: Normocephalic. Atraumatic. EYES: EOMI. No deformity. EARS: Clear. No ulcers. NOSE: Intact. No lesions. MOUTH: Clear. No discharge. THROAT: Clear. No exudate. LUNGS: Clear. No crackles. CARDIAC: S1, S2. No rub. ABDOMEN: Benign. BS+. GENITALIA/RECTUM: Stein absent. BACK/EXTREMITIES: Edema 0+ Ulcer- NEUROLOGICAL: Alert and motor intact. SKIN: Rash- Bruise- LYMPHATICS: Edema- Ulcer- LABORATORY DATA: Show hemoglobin 8.6, potassium 3.3. ASSESSMENT AND RECOMMENDATIONS: 1. Stage 6 chronic kidney disease, improved. 2. Hypertension, stable. 3. Anemia, stable. 4. Medications based on glomerular filtration rate are appropriate. 5. Hypokalemia. Recommend potassium replacement.
[2017-12-26 04:15] LABS: Anion Gap 17 mmol/L (10-20); BUN (Urea Nitrogen) 38 mg/dL (9.8-20.1); Calc. Creatinine Clearance 7 mL/min (70-130); Calcium 7.6 mg/dL (7.8-10.44); Carbon Dioxide 24 mmol/L (23-31); Chloride 97 mmol/L (98-107); Estimated GFR-MDRD 8; Glucose 100 mg/dL (83-110); Potassium 3.1 mmol/L (3.5-5.1); Sodium 135 mmol/L (136-145)
[2017-12-26] MEDS: Clindamycin/D5W 900 MG in Premix Bag 1 BAG IVPB SCH (04:22)
[2017-12-26 05:02] LABS: White Blood Cell (WBC) Count 0.9 thou/uL (4.8-10.8)
[2017-12-26 05:03] LABS: Platelet Count 17 thou/uL (130-400)
[2017-12-26 05:34] LABS: #Eosinphils 0.2 thou/uL (0.0-0.7); #Lymphocytes 0.2 thou/uL (1.20-3.40); #Monocytes 0.1 thou/uL (0.11-0.59); #Neutrophils 0.4 thou/uL (1.40-6.50); %Basophils 1.5 % (0.0-1.0); %Eosinophils 19.8 % (0.0-10.0); %Lymphocytes 24.8 % (21.0-51.0); %Monocytes 5.3 % (0.0-10.0); %Neutrophils 48.6 % (42.0-75.0); Hemoglobin 8.4 g/dL (12.0-16.0); MDiff Complete? YES; Macrocytosis SLIGHT = 6-15 cells (100X) (0-5/hpf); Mean Corpuscular HGB CONC 32.7 g/dL (32.0-36.0); Mean Corpuscular Hemoglobin 38.9 pg (27.0-31.0); Mean Platelet Volume 10.6 fL (7.4-10.4); PLT Morphology Comment Appears Decreased; RBC Distribution Width 14.7 % (11.5-14.5); Red Blood Cell (RBC) Count 2.17 mill/uL (4.20-5.40)
--- NOTE | 2017-12-26 05:41 | PDOC.FM ---
- Subjective Subjective: Concepcion Hayes seen at bedside this morning, with daughter Juli, in the room. She had some pain overnight but she is continuing to become more lucid. She is having less difficulty with word finding. Per daughter, she is getting closer to her baseline mental status. There were no acute events overnight. Her pressures have remained in the low 90s to 100s systolic. - Objective MAR Reviewed: Yes Vital Signs & Weight: Vital Signs (12 hours) Temp Pulse Resp BP Pulse Ox 12/26/17 04:32 98.8 F 93 17 91/48 L 100 12/26/17 00:07 98.0 F 79 18 91/46 L 100 12/25/17 20:17 98.1 F 80 17 12/25/17 19:57 98.1 F 80 17 90/40 L 100 Weight Admit Weight 43.091 kg Weight 43.091 kg Most Recent Monitor Data Heart Rate from ECG 78 NIBP 105/42 Respiration from ECG 16 I&O: 12/24/17 12/25/17 12/26/17 06:59 06:59 06:59 Intake Total 1500 900 Output Total 1182 Balance 318 900 Result Diagrams: 12/26/17 03:22 12/26/17 03:21 <Yasir Cardenas - Last Filed: 12/26/17 08:35> - Objective Vital Signs & Weight: Vital Signs (12 hours) Temp Pulse Resp BP Pulse Ox 12/26/17 07:39 98.1 F 78 19 89/42 L 100 12/26/17 07:22 98.8 F 76 16 12/26/17 06:25 100 12/26/17 06:23 76 16 100 12/26/17 04:32 98.8 F 93 17 91/48 L 100 12/26/17 00:07 98.0 F 79 18 91/46 L 100 Weight Admit Weight 43.091 kg Weight 43.091 kg Most Recent Monitor Data Heart Rate from ECG 78 NIBP 105/42 Respiration from ECG 16 I&O: 12/25/17 12/26/17 12/27/17 06:59 06:59 06:59 Intake Total 1500 900 Output Total 1182 Balance 318 900 Result Diagrams: 12/26/17 03:22 12/26/17 03:21 <Miladys Arellano - Last Filed: 12/26/17 10:24> Phys Exam - Physical Examination Constitutional: NAD HEENT: moist MMs, sclera anicteric Neck: no JVD, supple, full ROM Respiratory: no wheezing, no rales, no rhonchi, clear to auscultation bilateral Cardiovascular: RRR, no significant murmur Gastrointestinal: soft, non-tender Musculoskeletal: no edema, pulses present Neurological: non-focal, normal sensation, moves all 4 limbs Psychiatric: normal affect, A&O x 3 Deviation from normal: erythema of right lower extremity, improved from yesterday <Yasir Cardenas - Last Filed: 12/26/17 08:35> Dx/Plan (1) Sepsis Code(s): A41.9 - SEPSIS, UNSPECIFIED ORGANISM Status: Acute (2) Cellulitis of leg, right Code(s): L03.115 - CELLULITIS OF RIGHT LOWER LIMB Status: Acute (3) Elevated troponin I level Code(s): R74.8 - ABNORMAL LEVELS OF OTHER SERUM ENZYMES Status: Acute (4) Hyperkalemia Code(s): E87.5 - HYPERKALEMIA Status: Resolved (5) ESRD on peritoneal dialysis Code(s): N18.6 - END STAGE RENAL DISEASE; Z99.2 - DEPENDENCE ON RENAL DIALYSIS Status: Chronic (6) Neutropenia Code(s): D70.9 - NEUTROPENIA, UNSPECIFIED Status: Acute (7) Hypotension Status: Acute (8) Aortic stenosis Code(s): I35.0 - NONRHEUMATIC AORTIC (VALVE) STENOSIS Status: Chronic QualifierTitle: Cardiac valve disease etiology: nonrheumatic Qualified Code(s): I35.0 - Nonrheumatic aortic (valve) stenosis (9) CAD (coronary artery disease) Code(s): I25.10 - ATHSCL HEART DISEASE OF [place] CORONARY ARTERY W/O ANG PCTRS Status: Chronic (10) COPD (chronic obstructive pulmonary disease) Status: Chronic (11) HTN (hypertension) Code(s): I10 - ESSENTIAL (PRIMARY) HYPERTENSION Status: Chronic (12) Psoriasis Code(s): L40.9 - PSORIASIS, UNSPECIFIED Status: Chronic (13) Acute exacerbation of CHF (congestive heart failure) Code(s): I50.9 - HEART FAILURE, UNSPECIFIED Status: Acute (14) Pancytopenia Code(s): D61.818 - OTHER PANCYTOPENIA Status: Acute - Plan Plan: 1) Sepsis: 2/2 right lower extremity cellulitis - OP therapy with keflex x2 doses from outside ER 1 day prior to admission - Blood and wound cultures taken in the ED - Started on Vancomycin and Clindamycin, adding Cefepime for pseudomonas coverage - Patient is neutropenic with ANC around 940, likely 2/2 methotrexate use, methotrexate discontinued indefinitely - Lactic Acid elevated, will continue to monitor, repeat this morning - AM CBC and BMP - BPs low but stable around 90s-100s systolic, continue IVFs - consider transferring to [facility] today 2) Right Lower Extremity Cellulitis: - Continue IV Vancomycin and IV clindamycin, IV Cefepime - Otherwise, as above - Consulted wound care 3) Pancytopenia-stable - Likely 2/2 methotrexate - ANC of 940 - Discontinued methotrexate, continue to monitor - s/p 1 6pk of platelets on 12/24, platelets this morning are 17 - Consulted heme/onc, appreciate recs - Hg has stabilized - Consider 2nd 6pk of platelets today 4) ESRD on PD, pt of Dr. Keita - Consulted Neela who requested I contact Dr. Marino - Dr. Marino consulted, appreciate recs - continue PD - CM and Palliative Care consulted, appreciate recs 5) Hyperkalemia: resolved - K+ of 5.9 in the ED, this morning it is 3.1, supplement - Calcium Gluconate given in the ED - nephrology recs - Recheck in AM - No EKG changes, asymptomatic 6) Elevated troponins - No active chest pain, no new EKG findings - Possibly 2/2 ESRD vs demand ischemia - trops mj to 1.76 - cardiology consulted, recommended against anticoagulation because no chest pain and low platelets 7) Elevated lactic acid - 2/2 #1 - continue to trend 8) HTN - hold home medications 9) Hypothyroidism - Home meds 10) COPD - Home inhalers 11) Acute [place] [address] - clinically not volume overloaded - no LE edema, cardiomegaly and small right pleural effusion on CXR - no respiratory distress - continue home meds and cont to monitor <Yasir Cardenas - Last Filed: 12/26/17 08:35> (1) Sepsis Code(s): A41.9 - SEPSIS, UNSPECIFIED ORGANISM Status: Acute (2) Cellulitis of leg, right Code(s): L03.115 - CELLULITIS OF RIGHT LOWER LIMB Status: Acute (3) Elevated troponin I level Code(s): R74.8 - ABNORMAL LEVELS OF OTHER SERUM ENZYMES Status: Acute (4) ESRD on peritoneal dialysis Code(s): N18.6 - END STAGE RENAL DISEASE; Z99.2 - DEPENDENCE ON RENAL DIALYSIS Status: Chronic (5) Neutropenia Code(s): D70.9 - NEUTROPENIA, UNSPECIFIED Status: Acute (6) Hypotension Status: Acute (7) Aortic stenosis Code(s): I35.0 - NONRHEUMATIC AORTIC (VALVE) STENOSIS Status: Chronic Qualifiers: Cardiac valve disease etiology: nonrheumatic Qualified Code(s): I35.0 - Nonrheumatic aortic (valve) stenosis (8) CAD (coronary artery disease) Code(s): I25.10 - ATHSCL HEART DISEASE OF [place] CORONARY ARTERY W/O ANG PCTRS Status: Chronic (9) COPD (chronic obstructive pulmonary disease) Status: Chronic (10) HTN (hypertension) Code(s): I10 - ESSENTIAL (PRIMARY) HYPERTENSION Status: Chronic (11) Psoriasis Code(s): L40.9 - PSORIASIS, UNSPECIFIED Status: Chronic <Miladys Arellano - Last Filed: 12/26/17 10:24> Attending Addendum - Attending Addendum Date/Time: 12/26/17 1013 I personally evaluated the patient and discussed the management with Dr. Cardenas I agree with the History, Examination, Assessment and Plan documented above with any addition or exceptions noted below- Patient c/o pain but unable to isolate location; Seems very restless and uncomfortable. Family does report that she gets relief with the pain medication. Afebrile. VSS. A/P: 1) Severe pancytopenia- WBC count not improving; continue monitoring and precautions. Will transfuse additional platelets today. 2) Cellulitis- improving; decreased erythema. 3) ESRD- on PD; continue nightly. Transfer to telemetry today. <Miladys Arellano - Last Filed: 12/26/17 10:24>
[2017-12-26] MEDS ORDERED: Potassium Chloride 20 MEQ TAB PO SCH (05:45)
[2017-12-26] MEDS: Levothyroxine Sodium 88 MCG TAB PO SCH (06:07)
[2017-12-26] MEDS: HYDROcodone/Acetaminophen 7.5/325 mg Tablet PO PRN ×2 (06:10→10:17)
[2017-12-26] MEDS: Mometasone/Formoterol 120 PUFF INHALER INH SCH ×2 (06:23→18:21)
--- NOTE | 2017-12-26 08:39 | PRG ---
DATE OF SERVICE: 12/26/2017 This morning she is doing better. She is being dialyzed. PHYSICAL EXAMINATION: VITAL SIGNS: Sats 99 to 100 on 2 liters, temperature 98, pulse 98, respirations 19, blood pressure 1 09/42. EXTREMITIES: Right leg has got some redness, but trace edema, left leg is normal. She says she is less short of breath. CHEST: Chest reveals decreased breath sounds, no wheezing. CARDIAC: Normal S1, S2. ABDOMEN: Soft, no masses. LABORATORY: Creatinine 5.1. White count is 0.9, H&H is 8 and 25, platelets 75. IMPRESSION: 1. Severe pancytopenia secondary to methotrexate. 2. Cellulitis. 3. End-stage chronic obstructive pulmonary disease. 4. Congestive heart failure. PLAN: She is off methotrexate. Cultures so far are negative. Start deescalating antibiotics. She can probably be transferred to a medical floor.
[2017-12-26] MEDS: Cefepime 2 GM in Sodium Chloride 0.9% 100 ML IVPB SCH ×2 (08:54→21:09)
[2017-12-26] MEDS: Folic Acid 1 MG TAB PO SCH (08:55)
[2017-12-26] MEDS: Lactinex Tablet PO SCH (08:55)
[2017-12-26] MEDS: Folic Acid/Vit B Comp W-C PO SCH (08:55)
[2017-12-26 09:39] LABS: Lactic Acid 1.1 mmol/L (0.5-2.2)
[2017-12-26] MEDS ORDERED: Lorazepam 2 MG/ML VIAL SLOW IVP SCH (10:45)
--- NOTE | 2017-12-26 10:47 | PRG ---
DATE OF SERVICE: 12/26/2017 SUBJECTIVE: This is a 72-year-old female being seen for end-stage renal disease. Patient denies any nausea, vomiting or chest pain. PHYSICAL EXAMINATION: GENERAL: Patient is awake and in mild to moderate distress. VITAL SIGNS: Afebrile, pulse 78, breathing 16, blood pressure 91/48. HEAD/NECK: Normocephalic. Atraumatic. EYES: EOMI. No deformity. EARS: Clear. No ulcers. NOSE: Intact. No lesions. MOUTH: Clear. No discharge. THROAT: Clear. No exudate. LUNGS: Clear. No crackles. CARDIAC: S1, S2. No rub. ABDOMEN: Benign. BS+. GENITALIA/RECTUM: Stein absent. BACK/EXTREMITIES: Edema 0+ Ulcer- NEUROLOGICAL: Alert and motor intact. SKIN: Rash- Bruise- LYMPHATICS: Edema- Ulcer- LABORATORY DATA: Show hemoglobin 8.4, potassium 3.1 and creatinine 5.1. ASSESSMENT AND PLAN: 1. Stage 6 chronic kidney disease, stable. 2. Hypokalemia. Recommend high potassium diet. 3. Anemia, stable. 4. Medications based on GFR are appropriate.
[2017-12-27 04:57] LABS: Hemoglobin 8.3 g/dL (12.0-16.0); Mean Corpuscular Hemoglobin 39.1 pg (27.0-31.0); Mean Platelet Volume 10.4 fL (7.4-10.4); Platelet Count 9 thou/uL (130-400); RBC Distribution Width 14.3 % (11.5-14.5); Red Blood Cell (RBC) Count 2.11 mill/uL (4.20-5.40); White Blood Cell (WBC) Count 0.4 thou/uL (4.8-10.8)
[2017-12-27 05:28] LABS: Anion Gap 19 mmol/L (10-20); BUN (Urea Nitrogen) 40 mg/dL (9.8-20.1); Calc. Creatinine Clearance 7 mL/min (70-130); Calcium 7.6 mg/dL (7.8-10.44); Carbon Dioxide 20 mmol/L (23-31); Chloride 99 mmol/L (98-107); Estimated GFR-MDRD 8; Glucose 108 mg/dL (83-110); Sodium 135 mmol/L (136-145)
[2017-12-27 05:48] LABS: MDiff Complete? YES; Macrocytosis SLIGHT = 6-15 cells (100X) (0-5/hpf); PLT Morphology Comment Appears Decreased; Rouleaux Formation SLIGHT = 1-5 cells (100X) (None Seen)
[2017-12-27] MEDS: Levothyroxine Sodium 88 MCG TAB PO SCH (05:59)
--- NOTE | 2017-12-27 06:38 | PDOC.FM ---
- Subjective Subjective: Daughter at bedside of room. Pt opens eyes when talked too. Does not really respond. Pt resting. Seems to be in some distress. Daughter says she seems to be in more pain today. Says that the ativan is wearing off. Says she thinks pain medicine is helping. Daughter says she is leaning more towards hospice today but still not quite ready. - Objective MAR Reviewed: Yes Vital Signs & Weight: Vital Signs (12 hours) Temp Pulse Resp BP Pulse Ox 12/27/17 03:14 97.4 F L 85 18 105/48 L 93 L 12/27/17 00:19 97.8 F 79 20 113/41 L 100 12/26/17 21:10 97.0 F L 79 24 H 100 12/26/17 19:10 97.0 F L 79 24 H 98/41 L 100 Weight Admit Weight 43.091 kg Weight 43.091 kg Most Recent Monitor Data Heart Rate from ECG 78 NIBP 105/42 Respiration from ECG 16 I&O: 12/25/17 12/26/17 12/27/17 06:59 06:59 06:59 Intake Total 1500 900 Output Total 1182 Balance 318 900 Result Diagrams: 12/27/17 04:37 12/27/17 04:37 Radiology Reviewed by me: Yes (No new radiology to review) <Joey Dickinson - Last Filed: 12/27/17 06:39> - Objective Vital Signs & Weight: Vital Signs (12 hours) Temp Pulse Resp BP Pulse Ox 12/27/17 07:54 97.9 F 80 22 H 100 12/27/17 07:00 97.9 F 80 22 H 113/37 L 100 Weight Admit Weight 43.091 kg Weight 43.091 kg Most Recent Monitor Data Heart Rate from ECG 78 NIBP 105/42 Respiration from ECG 16 I&O: 12/26/17 12/27/17 12/28/17 06:59 06:59 06:59 Intake Total 900 Balance 900 Result Diagrams: 12/27/17 04:37 12/27/17 04:37 <Tree Grimes - Last Filed: 12/27/17 15:36> Phys Exam - Physical Examination Pt seems to be in some pain this morning dry mucous membranes Neck: no nodes, supple Respiratory: no wheezing, no rales, no rhonchi, clear to auscultation bilateral Cardiovascular: RRR, no significant murmur, no rub did not press hard as daughter did not want me to aggrevate pt much Musculoskeletal: pulses present Deviation from normal: Pt not able to really respond Deviation from normal: Some mild erythema. Cellulitis seems to be improving at this time. -: Multiple bruises on chest and arms. <Joey Dickinson - Last Filed: 12/27/17 06:39> Dx/Plan (1) Cellulitis of leg, right Code(s): L03.115 - CELLULITIS OF RIGHT LOWER LIMB Status: Acute (2) Neutropenia Code(s): D70.9 - NEUTROPENIA, UNSPECIFIED Status: Acute (3) ESRD (end stage renal disease) on dialysis Code(s): N18.6 - END STAGE RENAL DISEASE; Z99.2 - DEPENDENCE ON RENAL DIALYSIS Status: Acute (4) Hypokalemia Code(s): E87.6 - HYPOKALEMIA Status: Acute (5) Pancytopenia Code(s): D61.818 - OTHER PANCYTOPENIA Status: Acute (6) Sepsis Code(s): A41.9 - SEPSIS, UNSPECIFIED ORGANISM Status: Acute (7) Anemia in chronic kidney disease, on chronic dialysis Code(s): N18.6 - END STAGE RENAL DISEASE; D63.1 - ANEMIA IN CHRONIC KIDNEY DISEASE; Z99.2 - DEPENDENCE ON RENAL DIALYSIS Status: Chronic (8) COPD (chronic obstructive pulmonary disease) Status: Chronic (9) [place] Code(s): K92.1 - [place]LE[place] Status: Acute (10) Acute exacerbation of CHF (congestive heart failure) Code(s): I50.9 - HEART FAILURE, UNSPECIFIED Status: Acute - Plan Plan: 1) Sepsis: 2/2 right lower extremity cellulitis - OP therapy with keflex x2 doses from outside ER 1 day prior to admission - Blood and wound cultures taken in the ED - Started on Vancomycin and Clindamycin, adding Cefepime for pseudomonas coverage - Patient is neutropenic with ANC around 940, likely 2/2 methotrexate use, methotrexate discontinued indefinitely - AM CBC and BMP - BPs low but stable around 90s-100s systolic, continue IVFs 2) Right Lower Extremity Cellulitis: - Continue IV Vancomycin and IV clindamycin, IV Cefepime - Otherwise, as above - Consulted wound care -Seems to be improving at this time 3) Pancytopenia-stable - Likely 2/2 methotrexate - ANC of 800 - Discontinued methotrexate, continue to monitor - s/p 1 6pk of platelets on 12/24, platelets this morning are 9, have dropped. Did not get platelets yesterday as did not want to blow access. Pt bleeding quite a bit. Either pt will need hospice or we will have to try and infuse plts. Will continue to address wishes of family and patient at this time. - Consulted heme/onc, appreciate recs - Hg has stabilized 4) ESRD on PD, pt of Dr. Keita - Consulted Neela who requested I contact Dr. Marino - Dr. Marino consulted, appreciate recs - continue PD - CM and Palliative Care consulted, appreciate recs 5) Hypokalema - K+ of 5.9 in the ED, this morning it is 3.0, will need to supplement. - Calcium Gluconate given in the ED - nephrology recs - Recheck in AM - No EKG changes, asymptomatic 6) Elevated troponins - No active chest pain, no new EKG findings - Possibly 2/2 ESRD vs demand ischemia - trops mj to 1.76 - cardiology consulted, recommended against anticoagulation because no chest pain and low platelets 7) Elevated lactic acid (resolved) - 2/2 #1. Has since resolved and trended down - continue to trend 8) HTN (BP stable at this time) - hold home medications 9) Hypothyroidism - Home meds 10) COPD - Home inhalers 11) [place] [address], possibly due to demand ischemia and problems above. - clinically not volume overloaded - no LE edema, cardiomegaly and small right pleural effusion on CXR - no respiratory distress, no wheezes or crackles on exam - continue home meds and cont to monitor <Joey Dickinson - Last Filed: 12/27/17 06:39> Attending Addendum - Attending Addendum Date/Time: 12/27/17 3965 I personally evaluated the patient and discussed the management with Dr. Dickinson. I agree with the History, Examination, Assessment and Plan documented above with any addition or exceptions noted below. Mrs. Hayes has had a significant decline over night. She has severe muscle wasting since I last saw her several months ago, and today she only responds to verbal stimulation by staring and turning her eyes/head. Mouth breathing, left knee bent up and occasionally tremoring. Lungs: distant breath sounds, No rales or rhonchi. Rare wheezes. Cor: RRR, distant sounds. Abdomen: scaphoid. She is very sensitive to being moved. A: Cellulitis with severe sepsis Pancytopenia with severe neutropenia WBC 400, and severe thrombocytopenia platelets 9. Recent Hematochezia. ESRD on peritoneal dialysis, daughter Juli Ye now ready and willing to discontinue peritoneal dialysis and seek hospice care in light of her grave prognosis. Other co-morbid conditions include severe COPD, diastolic CHF, psoriasis, hypothyroidism., paroxysmal a-fib, sinocutaneous fistula of the frontal sinus. Life expectancy is likely hours to days. Daughter agreeable to transfer to [facility] for inpatient hospice/palliative care. Discontinue Peritoneal Dialysis. [facility] <Tree Grimes - Last Filed: 12/27/17 15:36>
[2017-12-27] MEDS ORDERED: Potassium Chloride 20 MEQ TAB PO SCH (07:00)
[2017-12-27] MEDS: Mometasone/Formoterol 120 PUFF INHALER INH SCH (08:03)
[2017-12-27] MEDS: Folic Acid/Vit B Comp W-C PO SCH (11:04)
[2017-12-27] MEDS: Folic Acid 1 MG TAB PO SCH (11:04)
[2017-12-27] MEDS: Lactinex Tablet PO SCH (11:06)
[2017-12-27] MEDS: Cefepime 2 GM in Sodium Chloride 0.9% 100 ML IVPB SCH (11:58)
--- NOTE | 2017-12-27 13:41 | PRG ---
DATE OF SERVICE: 12/27/2017 SERVICE: Pulmonary Medicine. INTERVAL HISTORY: The patient is doing very poorly overall. She does not have any discomfort. The patient's family has decided to transition over to comfort care only. They are pursuing inpatient ho spice. Apparently, there is going to be a bed becomes available at some point today. Once it is the re, we are going to transition out of the hospital. She cannot provide any additional elements of th e history. She is a little bit sleepy. That being said, she appears to be comfortable. The family has no complaints at this point. PHYSICAL EXAMINATION: VITAL SIGNS: Afebrile, pulse 80, blood pressure 113/37, respirations 22, saturation 100% on 2 liters nasal cannula. GENERAL: Patient is somnolent. HEENT: Normocephalic, atraumatic. Sclerae are white, conjunctivae pink. Oral and nasal mucosa is m oist without lesions. LUNGS: Rhonchi are present. There are depending crackles. No wheezing is present. HEART: Normal rate, regular. ABDOMEN: Soft. Nontender, nondistended. Bowel sounds are positive. MUSCULOSKELETAL: No cyanosis or clubbing. There is diffuse 1-2+ pitting throughout. GENITOURINARY: No Stein catheter in place. NEUROLOGIC: Grossly nonfocal. She demonstrates diffuse encephalopathy. LABORATORY DATA: WBC 0.4, hemoglobin 8.3 and stable, platelets 9000. INR 1.1. Creatinine 5.16, BUN 40. Potassium 3.0. Basic metabolic profile is otherwise unremarkable. Blood cultures x2, urine cu lture, body fluid culture are all unremarkable. ASSESSMENT: 1. Pancytopenia. 2. Cellulitis. 3. End-stage renal disease. 4. Severe protein calorie malnutrition. PLAN: The patient is going to transition out of the hospital on home hospice. As such, I am going t o discontinue all pending laboratories and studies. I will discontinue antibiotics. The patient abiodun l undergo best palliative care available. The family is aware that she likely has less than a week t o live. If they have any concerns about discomfort, they have been asked to let her staff know.
[2017-12-27] MEDS: Potassium Chloride 20 MEQ TAB PO SCH (14:11)
[2017-12-27 18:12] VITALS: BP 98/43; TEMP 97.4
[2017-12-29] MEDS ORDERED: Epoetin (ESRD) 10,000 UNITS/ML VIAL SC SCH (09:00)
--- NOTE | 2017-12-29 11:32 | DIS-2 ---
DATE OF ADMISSION: 12/23/2017 DATE OF DISCHARGE: 12/27/2017 RESIDENT: Yasir Cardenas M.D. ADMITTING ATTENDING: Dr. Miladys Arellano DISCHARGE ATTENDING: Dr. Tree Grimes CONSULTATIONS: 1. Cardiology, Dr. Alaniz on 12/23/2017. 2. Dr. Marino, Nephrology on 12/23/2017. 3. Dr. Cheema, Oncology on 12/24/2017.. 4. Pulmonology, Dr. Ramirez on 12/24/2017. 5. Case management on 12/25/2017. 6. Hospice Agency on 12/27/2017. 7. Palliative care on 12/24/2017. PROCEDURES: 1. Chest x-ray from 12/23/2017. Impression: Cardiomegaly with small right pleural effusion. 2. Transfusion of leukocyte reduced apheresis platelets on 12/24/2017 250 mL. 3. Bacterial culture from right leg on 12/23/2017, final read, no growth in 5 days. 4. Blood culture x2 from 12/23/2017, no growth to date. 5. Urine culture from 12/23/2017, no growth at 36 hours. 6. Culture of the dialysate fluid from 12/25/2017, no growth in 3 days. PRIMARY DIAGNOSES: 1. Sepsis secondary to right leg cellulitis. 2. Severe pancytopenia. SECONDARY DIAGNOSES: 1. End-stage renal disease on peritoneal dialysis. 2. Congestive heart failure. 3. Chronic obstructive pulmonary disease. 4. Atrial fibrillation. 5. Coronary artery disease. 6. Hypertension. 7. Aortic stenosis. DISCHARGE MEDICATIONS: Patient discharged to Inpatient Hospice. DISCHARGE MEDICATIONS: 1. Levothyroxine sodium 88 mcg p.o. q.a.m. 2. Symbicort 160/4.5 two INH p.o. b.i.d. 3. KCl 20 mEq p.o. q.2 days. 4. Lactobacillus acidophilus 1 capsule p.o. daily. 5. Zofran 4 mg p.o. p.r.n. 6. Albuterol sulfate 2 puffs INH p.r.n. 7. [place]elg 7.5/325 one tab p.o. q.4 hours p.r.n. HISTORY OF PRESENT ILLNESS/HOSPITAL COURSE: Concepcion Hayes is an unfortunate 72-year-old female wi th past medical history of end-stage renal disease on peritoneal dialysis, paroxysmal atrial fibrilla tion, hypertension, CHF, COPD, psoriasis, hypothyroidism and aortic stenosis who presented to the ED with a 2-day history of right leg redness and pain. The patient went to the [facility] for t he redness and pain the day before admission and was prescribed Keflex and discharged from the ED. T his morning she woke up with a fever of 102.5. The patient had only received 2 doses of Keflex. Dex mckeon states that her symptoms have been associated with altered mental status, primarily in the form of difficulty finding words. Daughter states that the patient also has some scratches and wounds on her lower back. The patient denied any chest pain, stated that she had been compliant with her medi cations and dialysis. In the ED, the patient received 1 liter normal saline. Blood and wound cultur es were drawn as well as urine cultures and the patient was started on IV vancomycin and IV clindamyc in. EKG in the ED showed ventricular paced rhythm with PVCs and no new findings compared to previous EKGs. Potassium in the ED was 5.9 and the patient was given 1 amp of calcium gluconate. Initial la bs on admission were significant for white blood cell count of 1.0, hemoglobin 9.3, hematocrit 27.8, platelets of 9. Sodium 136, potassium 4.0, chloride 100, bicarbonate 20, BUN 46, creatinine is 5.43, and a glucose of 123. Lactic acid was 3.1. The patient was admitted for sepsis secondary to lower extremity cellulitis. She was given IV fluids and started on vancomycin and clindamycin, also starte d Zosyn initially for pseudomonal coverage which was switched to cefepime IV. For her pancytopenia, Hematology/Oncology was consulted during her admission and it was thought that the pancytopenia was s econdary to methotrexate use for which she was taking for psoriatic arthritis. She had an absolute n eutrophil count of 940. Methotrexate was held on admission and was discontinued completely theretoña r. For the patient's end-stage renal disease on peritoneal dialysis, she is a patient of Dr. Keita 's, Dr. Marino was consulted and initially recommended continuing peritoneal dialysis. The patient was initially hyperkalemic in the ED to 5.9, calcium gluconate was given and Kayexalate was given. Her hyperkalemia improved during her admission, it was initially 5.9 and by the next morning she had a no rmal at 4.0. It continued to downtrend thereafter and on day of discharge 12/27/2017 the patient's p otassium was 3.0. Dr. Marino with Nephrology, Dr. Ramirez with Pulmonology as well as Dr. Castellon and Dr. Cheema were all consulted during this admission. The patient's white blood cell count was initial ly 1.0 on admission and it down trended to as low as 0.8, until the day of discharge, it was 0.4. Th e patient's platelet count was 13 on admission, it down trended to 9. She received a six pack of jessica telets. It was then 33 and then down trended to 31 and then 17 and then 9 again on day of discharge to inpatient hospice. The patient also had an elevated troponin which was likely secondary to possib le demand ischemia, but more likely from end-stage renal disease and inability to clear. Cardiology was consulted for recommendations and recommended against any anticoagulation or procedures at this t aydee as the patient had no EKG changes and had no chest pain. The patient's hospital stay was complic ated by the fact that she was very altered. It was very difficult to determine whether or not the pa tient had the mental capacity to make her own decisions. The patient's daughters were present throug h the entirety of her admission including the medical power of deputy county attorney, whose name is Juli. There were many difficult conversations had with the patient and with the patient's daughters during this h ospital admission. The patient's baseline like health status had been decreasing over the past sever al months. She has had multiple admissions this year. Daughter expressed concern early in admission that she would be unable to provide adequate care to the patient at home like she had been doing for the previous 3 years. It was determined that the patient had a very poor prognosis and would likely not improve. She never had the complete mental capacity to make decisions moving forward. On day o f discharge to inpatient hospice, the patient was experiencing a lot of pain and agonal breathing. D ecision was made with the help of specialists and primary team by the daughters to pursue inpatient h ospice for comfort measures. The patient was set up with [facility] with the help of deirdre gamboa and she was discharged from the hospital on 12/27/2017. DISPOSITION: Poor. The patient is transitioned to inpatient hospice care for end of life care and deirdre manzano care. DISCHARGE INSTRUCTIONS: 1. Location: Inpatient hospice. 2. Activity as tolerated. 3. Diet as tolerated. 4. Followup: No followup required as the patient is going to inpatient hospice.
--- NOTE | 2018-01-03 12:09 | EKG ---
Test Reason : Blood Pressure : / mmHG Vent. Rate : 082 BPM Atrial Rate : 234 BPM P-R Int : 000 ms QRS Dur : 172 ms QT Int : 462 ms P-R-T Axes : -77 -72 105 degrees QTc Int : 539 ms Ventricular-paced rhythm with premature ventricular or aberrantly conducted complexes Abnormal ECG Confirmed by LADI FLORES ([id number]), manuscript editor COSTA ALMAZAN ([id number]) on 01/03/2018 12:09:13 PM Referred By: Confirmed By:LADI FLORES
== END 2017-12-27 18:12 | disposition hospice, inpatient (51) | DRG 871 ==
LOC: ERS 14:27 → IMCU/EMU 16:57
PROVIDERS: ADMIT Family Medicine; ATTEND Family Medicine
PROC: 3E1M39Z Irrigation of Peritoneal Cavity using Dialysate, Percutaneous Approach (ICD-10-PCS; principal; 2017-12-23)
PROC: 30233R1 Transfusion of Nonautologous Platelets into Peripheral Vein, Percutaneous Approach (ICD-10-PCS; 2017-12-24)
DX: A41.9 Sepsis, unspecified organism (principal); N18.6 End stage renal disease; I50.33 Acute on chronic diastolic (congestive) heart failure; D61.811 Other drug-induced pancytopenia; E43 Unspecified severe protein-calorie malnutrition; L03.115 Cellulitis of right lower limb; I13.2 Hypertensive heart and chronic kidney disease with heart failure and with stage 5 chronic kidney disease, or end stage renal disease; Z68.1 Body mass index [BMI] 19.9 or less, adult; K92.1 Melena; R65.20 Severe sepsis without septic shock; I35.0 Nonrheumatic aortic (valve) stenosis; I25.10 Atherosclerotic heart disease of native coronary artery without angina pectoris; Z51.5 Encounter for palliative care; D63.1 Anemia in chronic kidney disease; I48.0 Paroxysmal atrial fibrillation; E87.5 Hyperkalemia; J44.9 Chronic obstructive pulmonary disease, unspecified; R74.8 Abnormal levels of other serum enzymes; E87.6 Hypokalemia; Z99.2 Dependence on renal dialysis; L40.9 Psoriasis, unspecified; Z66 Do not resuscitate; Z95.0 Presence of cardiac pacemaker; E03.9 Hypothyroidism, unspecified; Z87.891 Personal history of nicotine dependence; T45.1X5A Adverse effect of antineoplastic and immunosuppressive drugs, initial encounter
CPT/HCPCS: 36415; 36430; 51701; 71045; 80048; 80053; 80202; 81003; 81015; 82553; 83605; 83880; 84484; 85025; 85049; 85300; 85362; 85379; 85384; 85610; 85730; 86850; 86900; 86901; 87040; 87070; 87086; 87205; 90945; 93005; 96365; 96366; 96367; 96375; 99283; A4216; A4353; G0257; G8978-GP-CN; G8979-GP-CK; J0692; J2060; J2270; J2543; J3370; J3490; J7050; P9035; Q4081